=== PATIENT | female | born 1970 | race Caucasian/White ===

== ENCOUNTER 2020-06-19 08:06 | Outpatient (REF) | payer BC, SELFPAY ==
[2020-06-19 10:39] LABS: MANUAL DIFF FLAG NO
[2020-06-19 10:48] LABS: Basophils Absolute Auto 0.1 X10*3/uL (0.0-0.2); Basophils Percent Auto 1.2 % (0-2); Eosinophils Absolute Auto 0.3 X10*3/uL (0.0-0.4); Eosinophils Percent Auto 3.5 % (0-4); Hematocrit 40.6 % (37-47); Hemoglobin 13.2 g/dl (12.0-16.0); Imm Gran Abs Auto 0.04 X10*3/uL (0.00-0.03); Imm Gran Pct Auto 0.4 % (0.0-0.4); Lymphocytes Absolute Auto 3.2 X10*3/uL (1.2-4.9); Lymphocytes Percent Auto 34.7 % (20-40); Mean Corpuscular HGB Conc 32.5 g/dl (31.0-35.0); Mean Corpuscular Hemoglobin 30.6 pg (27.0-33.0); Mean Corpuscular Volume 94.2 fL (80-98); Mean Platelet Volume 9.5 fL (9.4-12.3); Monocytes Absolute Auto 0.7 X10*3/uL (0.1-1.2); Monocytes Percent Auto 7.8 % (2-11); Neutrophils Absolute Auto 4.8 X10*3/uL (2.0-8.3); Neutrophils Percent Auto 52.4 % (45-73); Platelet Count 383 X10*3/uL (160-400); Red Blood Count 4.31 X10*6/uL (4.20-5.50); White Blood Count 9.2 X10*3/uL (4.8-10.8)
[2020-06-19 11:10] LABS: Alanine Aminotransferase 24 U/L (0-31); Albumin Level 4.6 g/dL (3.5-5.0); Alkaline Phosphatase 111 U/L (39-117); Anion Gap 15 (12-20); Aspartate Amino Transferase 19 U/L (5-31); Bilirubin Total 0.5 mg/dL (0.0-1.0); Blood Urea Nitrogen 19 mg/dL (9-16); Calcium 9.3 mg/dL (8.4-10.2); Carbon Dioxide 26 mmol/L (22-29); Chloride 105 mmol/L (96-108); Cholesterol 183 mg/dL; Estimated Glomerular Filt Rate > 60; Glucose Fasting 102 mg/dL (60-99); HDL Cholesterol 41 mg/dL; LDL Cholesterol Calculated 122 mg/dl; Potassium 4.3 mmol/l (3.3-5.1); Sodium 142 mmol/L (135-145); Total Protein 6.9 g/dL (6.5-8.0); Triglycerides 102 mg/dL
[2020-06-19 11:35] LABS: TSH reflex Free T4 0.89 mIU/mL (0.32-4.0); Vitamin D 25-OH Total 31.2 ng/mL (>30)
== END 2020-06-19 08:07 | disposition home or self-care (01) ==
LOC: HO.10HDL 08:06
PROVIDERS: Visit Provider Internal Medicine
DX: E78.00 Pure hypercholesterolemia, unspecified (principal); R73.01 Impaired fasting glucose; M51.36 Other intervertebral disc degeneration, lumbar region; R00.2 Palpitations; K21.9 Gastro-esophageal reflux disease without esophagitis; E55.9 Vitamin D deficiency, unspecified
CPT/HCPCS: 36415; 80053; 80061; 82306; 84443; 85025

== ENCOUNTER 2020-10-19 17:30 | Inpatient (IN) | payer BC, SELFPAY ==
--- NOTE | ~2020-10-19 | US_ITS ---
EXAMINATION: US ABDOMEN LIMITED CLINICAL INFORMATION: Right upper quadrant pain. COMPARISON: 06/23/2011 TECHNIQUE: Real-time imaging of the right upper quadrant abdominal viscera. FINDINGS: PANCREAS: Normal. LIVER: Normal. The liver is normal in size. The liver contour is normal. Parenchymal echogenicity is normal. No focal hepatic lesion. There is no intrahepatic biliary duct dilatation seen. GALLBLADDER: There is cholelithiasis, gallbladder wall thickening and pericholecystic fluid. Sonographic Rivera sign is positive. COMMON BILE DUCT: Normal in caliber measuring 0.8 cm in diameter. RIGHT KIDNEY: Normal. No hydronephrosis. No renal calculi or focal parenchymal lesions. The kidney measures 10.2 cm in maximum dimension. FREE FLUID: None. US/US abdomen limited IMPRESSION: Sonographic findings suggest acute calculus cholecystitis
[2020-10-19 18:02] VITALS: BP 140/79; PULSE 101; RESP 16; TEMP 37.4; O2SAT 98; BMI 25.2
[2020-10-19 18:30] LABS: MANUAL DIFF FLAG NO
[2020-10-19 18:33] LABS: Basophils Absolute Auto 0.1 X10*3/uL (0.0-0.2); Basophils Percent Auto 0.7 % (0-2); Eosinophils Absolute Auto 0.1 X10*3/uL (0.0-0.4); Eosinophils Percent Auto 0.3 % (0-4); Hematocrit 41.2 % (37-47); Hemoglobin 13.5 g/dl (12.0-16.0); Imm Gran Abs Auto 0.09 X10*3/uL (0.00-0.03); Imm Gran Pct Auto 0.6 % (0.0-0.4); Lymphocytes Absolute Auto 2.5 X10*3/uL (1.2-4.9); Lymphocytes Percent Auto 16.7 % (20-40); Mean Corpuscular HGB Conc 32.8 g/dl (31.0-35.0); Mean Corpuscular Hemoglobin 30.2 pg (27.0-33.0); Mean Corpuscular Volume 92.2 fL (80-98); Mean Platelet Volume 9.1 fL (9.4-12.3); Monocytes Absolute Auto 0.8 X10*3/uL (0.1-1.2); Monocytes Percent Auto 5.5 % (2-11); Neutrophils Absolute Auto 11.5 X10*3/uL (2.0-8.3); Neutrophils Percent Auto 76.2 % (45-73); Platelet Count 374 X10*3/uL (160-400); Red Blood Count 4.47 X10*6/uL (4.20-5.50); Red Cell Distribution Width 13.6 % (11.0-16.0); White Blood Count 15.2 X10*3/uL (4.8-10.8)
[2020-10-19 18:34] LABS: Glucose Urine UA NEG (NEG); Leukocyte Esterase Urine NEG (NEG); Nitrite Urine NEG (NEG); Specific Gravity - Urine 1.025 (1.005-1.025); Urine Blood 2+ (NEG); Urine Ketones NEG (NEG); Urine Protein NEG (NEG-TRACE)
[2020-10-19 18:35] LABS: Appearance Urine CLEAR; Color Urine YELLOW
[2020-10-19 18:57] LABS: Alanine Aminotransferase 26 U/L (0-31); Albumin Level 4.7 g/dL (3.5-5.0); Alkaline Phosphatase 126 U/L (39-117); Anion Gap 15 (12-20); Aspartate Amino Transferase 19 U/L (5-31); Bilirubin Direct 0.2 mg/dL (0.0-0.5); Bilirubin Total 0.4 mg/dL (0.0-1.0); Blood Urea Nitrogen 16 mg/dL (9-16); Calcium 9.8 mg/dL (8.4-10.2); Carbon Dioxide 27 mmol/L (22-29); Chloride 104 mmol/L (96-108); Creatinine Clr Calc Pharmacy 62.9; Estimated Glomerular Filt Rate > 60; Glucose Random 122 mg/dL (60-115); Potassium 4.3 mmol/L (3.3-5.1); Sodium 142 mmol/L (135-145); Total Protein 7.4 g/dL (6.5-8.0)
[2020-10-19 18:59] LABS: Bacteria Urine TRACE /LPF; Squamous Epithelial Cell Urine TRACE /LPF; WBC Urine 0-2 /HPF (0-4)
[2020-10-19 20:00] VITALS: BP 144/94; PULSE 89; RESP 14; O2SAT 99
--- NOTE | 2020-10-19 21:21 | ED_ITS ---
HPI - Abdominal Pain General Chief Complaint: Abdominal Pain Stated Complaint: FLANK PAIN Time Seen by Provider: 10/19/20 21:13 Source: patient Mode of arrival: ambulatory History of Present Illness HPI narrative: This is a 49-year-old female who presents with right upper quadrant pain this started approximately 9:00 a.m. this morning denies any radiation into the right shoulder into her back but is also having pain in the epigastric area. This is been associated with nausea and 2 episodes of vomiting as well as decrease in appetite. Otherwise, she denies any fever, chills, diarrhea, urinary pain/burning/frequency. Her history is significant for having a ?gallbladder attack a few years ago?. Related Data Home Medications Medication Instructions Recorded Confirmed ibuprofen 800 mg tablet 800 mg PO TID PRN 06/22/20 06/23/20 sulfamethoxazole 800 1 tab PO BID 06/22/20 06/23/20 mg-trimethoprim 160 mg tablet cholecalciferol (vitamin D3) 50 50 mcg PO DAILY 06/23/20 06/23/20 mcg (2,000 unit) capsule fluticasone propionate 50 2 spray INTRANASAL DAILY 06/23/20 06/23/20 mcg/actuation nasal spray,suspension gabapentin 600 mg tablet 600 mg PO BID 06/23/20 06/23/20 paroxetine HCl 30 mg tablet 30 mg PO DAILY 06/23/20 06/23/20 propranolol 10 mg tablet 10 mg PO BID 06/23/20 06/23/20 tizanidine 4 mg tablet 4 mg PO TID PRN 06/23/20 06/23/20 Previous Rx's Medication Instructions Recorded atorvastatin 10 mg tablet 10 mg PO DAILY #30 tab 07/21/20 lorazepam 0.5 mg tablet 0.5 mg PO TID PRN 30 Days #90 tab 08/03/20 Allergies Allergy/AdvReac Type Severity Reaction Status Date / Time No Known Allergies Allergy Verified 06/23/20 22:24 [No Known Allergies*] Review of Systems Review of Systems Pertinent positives and negatives as stated in HPI 10 point review of systems is otherwise negative. Physical Exam Vital Signs: Vital Signs: Last Vital Signs Temp 98.3 F 10/19/20 22:00 Pulse 90 10/19/20 22:00 Resp 19 10/19/20 22:00 BP 133/90 H 10/19/20 22:00 Pulse Ox 99 10/19/20 22:00 Body Mass Index 25.2 VITAL SIGNS: Reviewed. GENERAL: Well developed, well nourished, in no acute distress. HEAD: Normocephalic/atraumatic NOSE: Nares patent bilateral OROPHARYNX: no oral lesions noted, posterior pharynx clear NECK: Supple, no adenopathy LUNGS: Normal breath sounds. SpO2<99> CARDIOVASCULAR: Regular rate and rhythm without noted murmurs ABDOMEN: Soft, tenderness in right upper quadrant with positive Rivera's, non- distended with bowel sounds. NEUROLOGIC: Alert and oriented x 4. Course Course Course Narrative: This is a 49-year-old female with history and clinical presentation most consistent with cholecystitis and less likely renal colic or pyelonephritis. Review of all investigations is significant for cholecystitis. Lactic acid and blood cultures were drawn and patient was provided with antibiotics and case was discussed with surgery. MDM - Abdominal Pain Lab Data Result diagrams: 10/19/20 18:23 10/19/20 18:23 Labs: Lab Results 10/19/20 10/19/20 10/19/20 Range/Units 18:23 18:23 18:23 WBC 15.2 H (4.8-10.8) X10*3/uL RBC 4.47 (4.20-5.50) X10*6/uL Hgb 13.5 (12.0-16.0) g/dl Hct 41.2 (37-47) % MCV 92.2 (80-98) fL MCH 30.2 (27.0-33.0) pg MCHC 32.8 (31.0-35.0) g/dl RDW 13.6 (11.0-16.0) % Plt Count 374 (160-400) X10*3/uL MPV 9.1 L (9.4-12.3) fL Immature Gran % (Auto) 0.6 H (0.0-0.4) % Neut % (Auto) 76.2 H (45-73) % Lymph % (Auto) 16.7 L (20-40) % [place] % (Auto) 5.5 (2-11) % Eos % (Auto) 0.3 (0-4) % Baso % (Auto) 0.7 (0-2) % Lymph # (Auto) 2.5 (1.2-4.9) X10*3/uL [place] # (Auto) 0.8 (0.1-1.2) X10*3/uL Eos # (Auto) 0.1 (0.0-0.4) X10*3/uL Baso # (Auto) 0.1 (0.0-0.2) X10*3/uL Abs Immat Gran (auto) 0.09 H (0.00-0.03) X10*3/uL Absolute Neuts (auto) 11.5 H (2.0-8.3) X10*3/uL Absolute Nucleated RBC 0.000 (0.0-0.012) X10*3/uL Nucleated RBC % (auto) 0.0 (0.0-0.2) /100WBC Sodium 142 (135-145) mmol/L Potassium 4.3 (3.3-5.1) mmol/L Chloride 104 (96-108) mmol/L Carbon Dioxide 27 (22-29) mmol/L Anion Gap 15 (12-20) BUN 16 (9-16) mg/dL Creatinine 0.92 (0.5-1.4) mg/dL Estim Creat Clear Calc 62.9 Estimated GFR > 60 Random Glucose 122 H (60-115) mg/dL Calcium 9.8 (8.4-10.2) mg/dL Total Bilirubin 0.4 (0.0-1.0) mg/dL Direct Bilirubin 0.2 (0.0-0.5) mg/dL AST 19 (5-31) U/L ALT 26 (0-31) U/L Alkaline Phosphatase 126 H (39-117) U/L Total Protein 7.4 (6.5-8.0) g/dL Albumin 4.7 (3.5-5.0) g/dL Lipase 32 (8-78) U/L Urine Color YELLOW Urine Appearance CLEAR Urine pH 6.0 (5.0-8.0) Ur Specific [place] 1.025 (1.005-1.025) Urine Protein NEG (NEG-TRACE) MG/DL Urine Glucose (UA) NEG (NEG) MG/DL Urine Ketones NEG (NEG) MG/DL Urine Blood 2+ H (NEG) Urine Nitrite NEG (NEG) Ur Leukocyte Esterase NEG (NEG) Urine RBC 1-4 (0) /HPF Urine WBC 0-2 (0-4) /HPF Ur Squamous Epith Cells TRACE /LPF Urine Bacteria TRACE /LPF Discharge Plan Discharge Clinical Impression: Acute cholecystitis Patient Disposition: Admitted As Inpatient [facility] Past Medical History Source: nursing notes reviewed Medical History Anxiety Depression GERD without esophagitis Impaired fasting glucose Lumbar degenerative disc disease Migraine Mild obstructive sleep apnea Palpitations Periodic limb movement disorder Pure hypercholesterolemia Vitamin D deficiency Surgical History No pertinent past surgical history Family History Family History Father Cancer Mother CVD (cardiovascular disease) Social History Social History Smoking Status: Former smoker Advance Directives: No Advance Directives Information Provided: Yes
[2020-10-19 22:00] VITALS: BP 133/90; PULSE 90; RESP 19; TEMP 36.8; O2SAT 99
[2020-10-19 22:01] LABS: Lipase 32 U/L (8-78)
[2020-10-19] MEDS: Ketorolac Tromethamine 15 MG/ML VIAL IVPUSH (22:08)
[2020-10-19] MEDS: 0.9 % Sodium Chloride 1,000 ML 999 ML IV (22:08)
[2020-10-19] MEDS: Piperacillin Sodium/Tazobactam 3.375 GM in 0.9 % Sodium Chloride 50 ML IV (22:22)
--- NOTE | 2020-10-19 22:28 | PC.NURSE ---
This RN placed an IV in the patients right AC, both blood cultures and lactic drawn, fluids and antibiotic hanging.
[2020-10-19 22:31] LABS: Lactic Acid 1.6 mmol/L (0.5-2.0)
--- NOTE | 2020-10-19 22:34 | P.CONGS_ITS ---
History of Present Illness Consult details Consult date: 10/19/20 <NELSON Joyce - Last Filed: 10/20/20 02:29> Reason for consult: abdominal pain <NELSON Joyce Last Filed: 10/20/20 02:29> Requesting physician: Amber Gonzalez <NELSON Joyce - Last Filed: 10/20/20 02:29> Narrative: 49 yo female presents to the ED today for Right side ABD pain and mid ABD burning sensation that started around 4 this AM. She states in 2010 she had a previous gallbladder attack that was treated with ABX. She has had no recurrence of those symptoms until this AM. She also reports episodes of N/V and a decreased appetite. She states that the pain comes and goes but denies radiation to the back or shoulder. At its worse it was a 9/10. Following pain medication in the ED it is now a 4/10. She denies fevers, chills or other complaints at this time. U/S in ED showed evidence of acute cholecystitis and labs with a WBC of 15K. Surgery was consulted for further evaluation <NELSON Joyce - Last Filed: 10/20/20 02:29> Review of Systems Review of Systems: Yes all other systems are reviewed and are negative <NELSON Joyce Last Filed: 10/20/20 02:29> Gastrointestinal: Gastrointestinal: Reports abdominal pain, Reports nausea and Reports vomiting <NELSON Joyce Last Filed: 10/20/20 02:29> [facility], [facility] Past Medical History Medical History: Medical History Anxiety Depression GERD without esophagitis Impaired fasting glucose Lumbar degenerative disc disease Migraine Mild obstructive sleep apnea Palpitations Periodic limb movement disorder Pure hypercholesterolemia Vitamin D deficiency <NELSON Joyce Last Filed: 10/20/20 02:29> Family History Family History: Family History Father Cancer Mother CVD (cardiovascular disease) <NELSON Joyce Last Filed: 10/20/20 02:29> Surgical History Surgical History: Surgical History No pertinent past surgical history <NELSON Joyce Last Filed: 10/20/20 02:29> Social History Social History: Social History Household Members: Family Housing: House Do you presently have visiting nurse or other home services: No Smoking Status: Current every day smoker Packs Per Day: 0.5 Cigarettes Per Day: 10.0 Years Smoked: 15 Smoked in Last 30 Days: Yes Patient Interested in Nicotine Replacement: No Use of substances other than those prescribed or required for medical reasons: No Have you been hit, kicked, punched, or otherwise hurt by someone within the past year? If so, by whom?: No Do you feel safe in your current relationship?: Yes Is there a partner from a previous relationship who is making you feel unsafe now?: No Are you made to feel afraid or neglected: No Advance Directives: No Advance Directives Information Provided: Yes Do you have thoughts of harming others: None Do you have a plan to hurt others: No Plan Recently lost weight without trying: No <NELSON Joyce - Last Filed: 10/20/20 02:29> Meds Allergies/Adverse reactions: Allergies Allergy/AdvReac Type Severity Reaction Status Date / Time No Known Allergies Allergy Verified 06/23/20 22:24 [No Known Allergies*] <NELSON Joyec - Last Filed: 10/20/20 02:29> Active Medications: Current Medications Generic Name Dose Route Start Last Admin Trade Name Freq PRN Reason Stop Dose Admin Piperacillin Sod/Tazobactam 50 mls @ 100 mls/hr 10/19/20 22:14 10/19/20 22:22 Sod 3.375 gm/ Sodium Chloride IV 10/19/20 22:43 100 mls/hr ONCE ONE Administration <NELSON Joyce - Last Filed: 10/20/20 02:29> Home medications: Home Medications Medication Instructions Recorded Confirmed Last Taken Type ibuprofen 800 mg tablet 800 mg PO TID PRN 06/22/20 06/23/20 Unknown History sulfamethoxazole 800 1 tab PO BID 06/22/20 06/23/20 Unknown History mg-trimethoprim 160 mg tablet cholecalciferol (vitamin D3) 50 50 mcg PO DAILY 12/12/20 12/12/20 Unknown History mcg (2,000 unit) capsule fluticasone propionate 50 2 spray INTRANASAL DAILY 06/23/20 06/23/20 Unknown History mcg/actuation nasal spray,suspension gabapentin 600 mg tablet 600 mg PO BID 06/23/20 06/23/20 Unknown History paroxetine HCl 30 mg tablet 30 mg PO DAILY 06/23/20 06/23/20 Unknown History propranolol 10 mg tablet 10 mg PO BID 06/23/20 06/23/20 Unknown History tizanidine 4 mg tablet 4 mg PO TID PRN 06/23/20 06/23/20 Unknown History <NELSON Joyce Last Filed: 10/20/20 02:29> Physical Exam Vital Signs: Vital Signs: Last Vital Signs Temp 98.3 F 10/19/20 22:00 Pulse 90 10/19/20 22:00 Resp 19 10/19/20 22:00 BP 133/90 H 10/19/20 22:00 Pulse Ox 99 10/19/20 22:00 Body Mass Index 25.2 <NELSON Joyce Last Filed: 10/20/20 02:29> Const: General: cooperative and no acute distress <NELSON Joyce L ast Filed: 10/20/20 02:29> Eyes: General: appearance normal, both eyes and all related structures <NELSON Joyce Last Filed: 10/20/20 02:29> Resp: Effort & Inspection: normal respiratory effort <NELSON Joyce Last Filed: 10/20/20 02:29> Auscultation: clear to auscultation bilaterally <NELSON Joyce Last Filed: 10/20/20 02:29> Cardio: Rate: regular rate <NELSON Joyce Last Filed: 10/20/20 02:29> Heart sounds: S1 normal heart sound present and S2 normal heart sound present <NELSON Joyce Last Filed: 10/20/20 02:29> GI: Inspection: Yes normal to inspection <NELSON Joyce Last Filed: 10/20/20 02:29> Palpation (GI): Soft to palpation and Tenderness to palpation present (GI) in the RUQ <NELSON Joyce Last Filed: 10/20/20 02:29> Auscultation: normal bowel sounds <NELSON Joyce - Last Filed: 10/20/20 02:29> Skin: General skin exam: no rashes or lesions noted <NELSON Joyce - Last Filed: 10/20/20 02:29> Results Labs Result diagrams: : 10/19/20 18:23 10/19/20 18:23 <NELSNO Joyce - Last Filed: 10/20/20 02:29> Labs: Abnormal lab results 10/19/20 10/19/20 10/19/20 Range/Units 18:23 18:23 18:23 WBC 15.2 H (4.8-10.8) X10*3/uL MPV 9.1 L (9.4-12.3) fL Immature Gran % (Auto) 0.6 H (0.0-0.4) % Neut % (Auto) 76.2 H (45-73) % Lymph % (Auto) 16.7 L (20-40) % Abs Immat Gran (auto) 0.09 H (0.00-0.03) X10*3/uL Absolute Neuts (auto) 11.5 H (2.0-8.3) X10*3/uL Random Glucose 122 H (60-115) mg/dL Alkaline Phosphatase 126 H (39-117) U/L Urine Blood 2+ H (NEG) Short CBC 10/19/20 Range/Units 18:23 WBC 15.2 H (4.8-10.8) X10*3/uL Hgb 13.5 (12.0-16.0) g/dl Hct 41.2 (37-47) % Plt Count 374 (160-400) X10*3/uL BMP 10/19/20 18:23 Sodium 142 Potassium 4.3 Chloride 104 Carbon Dioxide 27 BUN 16 Creatinine 0.92 Calcium 9.8 Liver Function 10/19/20 Range/Units 18:23 Total Bilirubin 0.4 (0.0-1.0) mg/dL Direct Bilirubin 0.2 (0.0-0.5) mg/dL AST 19 (5-31) U/L ALT 26 (0-31) U/L Alkaline Phosphatase 126 H (39-117) U/L Albumin 4.7 (3.5-5.0) g/dL Urine 10/19/20 Range/Units 18:23 Urine Color YELLOW Urine Appearance CLEAR Urine pH 6.0 (5.0-8.0) Ur Specific [place] 1.025 (1.005-1.025) Urine Protein NEG (NEG-TRACE) MG/DL Urine Glucose (UA) NEG (NEG) MG/DL All other labs normal. <NELSON Joyce - Last Filed: 10/20/20 02:29> Assessment and Plan (1) Acute cholecystitis: Problem details: 49 yo female with RUQ and Epigastric pain. U/S evidence of acute ch olecystitis. WBC of 15k <NELSON Joyce - Last Filed: 10/20/20 02:29> Status: Acute <NELSON Joyce - Last Filed: 10/20/20 02:29> Admit to med surg NPO pain mgmt IVF Plan for CCY tomorrow. <NELSON Joyce - Last Filed: 10/20/20 02:29> . General Surgery Attending - Suzanne Baires M.D. Patient was evaluated and examined at the bedside with Mr. Tristan Suero PA-C. I confirm above findings and plan as documented. I reviewed the U/S findings and her history. Will tx with IV antibiotics and assess her clinical course and determine timing of surgery. <Stefanie Baires MD - Last Filed: 10/20/20 02:50>
[2020-10-19 22:39] LABS: COVID-19 Test Negative (Negative)
[2020-10-19 22:49] VITALS: BP 122/73; PULSE 66; RESP 14; TEMP 36.9; O2SAT 100
[2020-10-19] MEDS: 0.9 % Sodium Chloride Flush 3 ML SYRINGE IVFLUSH (23:02)
[2020-10-19] MEDS: Morphine Sulfate 4 MG/ML CARTRIDGE IVPUSH (23:02)
[2020-10-19] MEDS: 0.9 % Sodium Chloride 1,000 ML 100 ML IVCONT (23:03)
[2020-10-20 00:22] LABS: Glucose Urine UA NEG (NEG); Leukocyte Esterase Urine NEG (NEG); Nitrite Urine NEG (NEG); Urine Blood 2+ (NEG); Urine Ketones NEG (NEG); Urine Protein NEG (NEG-TRACE)
[2020-10-20 00:25] LABS: Appearance Urine CLEAR; Color Urine YELLOW
[2020-10-20 00:38] LABS: RBC Urine 0-2 /HPF (0); Squamous Epithelial Cell Urine TRACE /LPF; WBC Urine 0-2 /HPF (0-4)
[2020-10-20 01:15] LABS: INTERNATIONAL NORM RATIO 1.1 (0.9-1.1); Prothrombin Time 12.6 SEC (10.8-13.0)
--- NOTE | 2020-10-20 01:52 | PC.NURSE ---
Report called to Johnathon RN- patient informed of admission report and room number. Patients belongings gone through and belongings list made. Pt to be transferred to floor.
[2020-10-20 02:16] VITALS: BP 113/50; PULSE 91; RESP 16; TEMP 37.7; O2SAT 97
[2020-10-20 03:46] VITALS: BP 128/71; PULSE 82; RESP 16; TEMP 37.2; O2SAT 97
[2020-10-20] MEDS: vancomycin HCL 1,000 MG in 0.9 % Sodium Chloride 250 ML 270 MG IV (04:30)
[2020-10-20] MEDS: Piperacillin Sodium/Tazobactam 3.375 GM in 0.9 % Sodium Chloride 50 ML IV ×4 (06:01→23:38)
[2020-10-20 07:11] LABS: Basophils Absolute Auto 0.1 X10*3/uL (0.0-0.2); Basophils Percent Auto 0.7 % (0-2); Eosinophils Absolute Auto 0.2 X10*3/uL (0.0-0.4); Eosinophils Percent Auto 1.6 % (0-4); Hematocrit 35.2 % (37-47); Hemoglobin 11.4 g/dl (12.0-16.0); Imm Gran Abs Auto 0.05 X10*3/uL (0.00-0.03); Imm Gran Pct Auto 0.4 % (0.0-0.4); Lymphocytes Absolute Auto 4.4 X10*3/uL (1.2-4.9); Lymphocytes Percent Auto 37.8 % (20-40); MANUAL DIFF FLAG NO; Mean Corpuscular HGB Conc 32.4 g/dl (31.0-35.0); Mean Corpuscular Hemoglobin 29.9 pg (27.0-33.0); Mean Corpuscular Volume 92.4 fL (80-98); Mean Platelet Volume 9.1 fL (9.4-12.3); Monocytes Absolute Auto 0.8 X10*3/uL (0.1-1.2); Monocytes Percent Auto 7.2 % (2-11); Neutrophils Percent Auto 52.3 % (45-73); Platelet Count 312 X10*3/uL (160-400); Red Blood Count 3.81 X10*6/uL (4.20-5.50); Red Cell Distribution Width 13.8 % (11.0-16.0); White Blood Count 11.5 X10*3/uL (4.8-10.8)
[2020-10-20 07:59] VITALS: BP 131/77; PULSE 100; RESP 19; TEMP 37; O2SAT 95
[2020-10-20] MEDS: 0.9 % Sodium Chloride 1,000 ML 100 ML IVCONT ×2 (10:23→21:54)
--- NOTE | 2020-10-20 10:37 | PM.PNGS ---
Subjective Subjective Date of Service: 10/20/20 <NELSON Joyce - Last Filed: 10/20/20 13:40> 10/20/20 <Stefanie Baires MD - Last Filed: 10/20/20 15:08> Interval history: Doing well. No overnight events. She states she has less pain and has not required any pain medication. No new compaints. <NELSON Joyce - Last Filed: 10/20/20 13:40> Physical Exam Vital Signs: Vital Signs: Last Vital Signs Temp 98.6 F 10/20/20 07:59 Pulse 100 10/20/20 07:59 Resp 19 10/20/20 07:59 BP 131/77 10/20/20 07:59 Pulse Ox 95 10/20/20 07:59 Body Mass Index 25.2 <NELSON Joyce - Last Filed: 10/20/20 13:40> Const: General: cooperative, healthy appearing and no acute distress <NELSON Joyce - Last Filed: 10/20/20 13:40> Resp: Effort & Inspection: normal respiratory effort and able to speak in complete sentences <NELSON Joyce - Last Filed: 10/20/20 13:40> Auscultation: clear to auscultation bilaterally <NELSON Joyce - Last Filed: 10/20/20 13:40> Cardio: Rate: regular rate <NELSON Joyce - Last Filed: 10/20/20 13:40> Heart sounds: S1 normal heart sound present and S2 normal heart sound present <NELSON Joyce - Last Filed: 10/20/20 13:40> GI: Inspection: Yes normal to inspection <NELSON Joyce - Last Filed: 10/20/20 13:40> Palpation (GI): Soft to palpation and Tenderness to palpation present (GI) in the RUQ (mild with palpation) <NELSON Joyce - Last Filed: 10/20/20 13:40> Auscultation: normal bowel sounds <NELSON Joyce - Last Filed: 10/20/20 13:40> Skin: General skin exam: no rashes or lesions noted <NELSON Joyce - Last Filed: 10/20/20 13:40> Extrem: General: Yes no calf tenderness <NELSON Joyce - Last Filed: 10/20/20 13:40> Progress Note: A&P Assessment and plan (1) Acute cholecystitis: Problem details: 49 yo female with RUQ and Epigastric pain. U/S evidence of acute cholecystitis. WBC improving from 15K--> 11k. No new compaints <NELSON Joyce - Last Filed: 10/20/20 13:40> Status: Acute <NELSON Joyce - Last Filed: 10/20/20 13:40> Assessment and Plan: Continue IV ABX. IVF Pain mgmt Vanco trough draw early so falsely elevated. Will hold off on emergent surgery at this time as she is improving with conservative mgmt. Encourage OOB <NELSON Joyce - Last Filed: 10/20/20 13:40> . General Surgery Attending - Suzanne Baires M.D. Patient was evaluated and examined at the bedside with Mr. Tristan Suero PA-C. I confirm above findings and plan as documented. Patient is stable, feeling better. Will recommend surgery this coming week. <Stefanie Baires MD - Last Filed: 10/20/20 15:08> Fall Risk Details Current Medications: Current Medications Generic Name Dose Route Start Last Admin Trade Name Freq PRN Reason Stop Dose Admin Acetaminophen 650 mg 10/19/20 22:49 Acetaminophen 325 Mg Tablet PO Q6H PRN Pain, Mild (Pain Scale 1-3) Sodium Chloride 1,000 mls @ 100 mls/hr 10/19/20 23:00 10/20/20 10:23 Ns IVCONT 100 mls/hr .Q10H JAIMEE Administration Vancomycin HCl 750 mg/ Sodium 265 mls @ 265 mls/hr 10/20/20 15:00 Chloride IV Q12H JAIMEE Piperacillin Sod/Tazobactam 50 mls @ 100 mls/hr 10/20/20 12:00 Sod 3.375 gm/ Sodium Chloride IV Q6H JAIMEE Morphine Sulfate 4 mg 10/19/20 22:49 10/19/20 23:02 Morphine Sulfate 4 Mg/Ml Cartridge IVPUSH 4 mg Q4H PRN Administration Pain, Severe (Pain Scale 7-10) Pharmacy Consult 1 each 10/20/20 03:09 Consult Rx Vancomycin Dosing MISCELLANE DAILY PRN Consult order Sodium Chloride 3 ml 10/20/20 00:00 10/20/20 08:12 0.9 % Sodium Chloride Flush 3 Ml Syringe IVFLUSH Not Given QSHIFT [facility] <NELSON Joyce - Last Filed: 10/20/20 13:40> Time Spent With Patient Time: Total time spent is greater than 50% in coordination of care (as documented) at patient's floor/unit and/or counseling patient: <NELSON Joyce - Last Filed: 10/20/20 13:40> Time with patient: 15 - 24 minutes <Stefanie Baires MD - Last Filed: 10/20/20 15:08>
[2020-10-20] MEDS: Acetaminophen 325 MG TABLET 650 MG PO (11:24)
[2020-10-20 11:39] VITALS: BP 125/65; PULSE 82; RESP 15; TEMP 36.7; O2SAT 97
[2020-10-20] MEDS: vancomycin HCL 750 MG in 0.9 % Sodium Chloride 250 ML 265 MG IV (14:48)
--- NOTE | 2020-10-20 15:06 | MHC.CM.PN ---
PATIENT LIVES WITH HER SPOUSE. SHE IS INDEPENDENT WITH HER ADLS, ALTHOUGH SPOUSE PROVIDES TRANSPORTATION. NO SERVICES IN THE HOME. SURGERY IS LIKELY TO OCCUR ON SUNDAY 10/22. CASE MANAGEMENT FOLLOWING FOR ANY DC NEEDS.
[2020-10-20 15:32] VITALS: BP 130/62; PULSE 80; RESP 15; TEMP 36.4; O2SAT 98
[2020-10-20 19:13] VITALS: BP 128/71; PULSE 78; RESP 15; TEMP 36.1; O2SAT 98
[2020-10-21] VITALS (7 sets, daily range): BP systolic 124–145; BP diastolic 60–83; PULSE 66–92; RESP 16–18; TEMP 36.3–37.7; O2SAT 96–99
[2020-10-21] MEDS: vancomycin HCL 750 MG in 0.9 % Sodium Chloride 250 ML 265 MG IV ×2 (02:54→16:06)
[2020-10-21] MEDS: Piperacillin Sodium/Tazobactam 3.375 GM in 0.9 % Sodium Chloride 50 ML IV ×3 (05:45→18:03)
[2020-10-21] MEDS: 0.9 % Sodium Chloride 1,000 ML 100 ML IVCONT ×2 (08:45→20:21)
--- NOTE | 2020-10-21 14:29 | PM.PNGS ---
Subjective Subjective Date of Service: 10/21/20 <NELSON Joyce - Last Filed: 10/21/20 14:35> 10/21/20 <Stefanie Baires MD - Last Filed: 10/21/20 14:56> Interval history: She is feeling well. Relatively little pain. She is OOB and was about to shower. She denies N/V. No new complaints. She is tolerating a regular (low fat)diet. <NELSON Joyce - Last Filed: 10/21/20 14:35> Physical Exam Vital Signs: Vital Signs: Last Vital Signs Temp 97.6 F 10/21/20 11:29 Pulse 66 10/21/20 11:29 Resp 16 10/21/20 11:29 BP 127/73 10/21/20 11:29 Pulse Ox 97 10/21/20 11:29 Body Mass Index 25.2 <NELSON Joyce - Last Filed: 10/21/20 14:35> Const: General: healthy appearing, comfortable and no acute distress <NELSON Joyce - Last Filed: 10/21/20 14:35> Resp: Effort & Inspection: normal respiratory effort <NELSON Joyce - Last Filed: 10/21/20 14:35> Auscultation: clear to auscultation bilaterally <ENLSON Joyce - Last Filed: 10/21/20 14:35> Cardio: Rate: regular rate <NELSON Joyce - Last Filed: 10/21/20 14:35> Heart sounds: S1 normal heart sound present and S2 normal heart sound present <NELSON Joyce - Last Filed: 10/21/20 14:35> GI: Inspection: Yes normal to inspection <NELSON Joyce - Last Filed: 10/21/20 14:35> Palpation (GI): Soft to palpation <NELSON Joyce Last Filed: 10/21/20 14:35> Auscultation: normal bowel sounds <NELSON Joyce - Last Filed: 10/21/20 14:35> Skin: General skin exam: no rashes or lesions noted <NELSON Joyce Last Filed: 10/21/20 14:35> Extrem: General: Yes no calf tenderness <NELSON Joyce - Last Filed: 10/21/20 14:35> Progress Note: A&P Assessment and plan (1) Acute cholecystitis: Problem details: 49 yo female with RUQ and Epigastric pain. U/S evidence of acute cholecystitis. Doing well on ABX. No new complaints <NELSON Joyce - Last Filed: 10/21/20 14:35> Status: Acute <NELSON Joyce - Last Filed: 10/21/20 14:35> Assessment and Plan: Will plan for a scheduled CCY in the coming week Continue IV ABX, pain meds as needed Will make NPO at midnight <NELSON Joyce - Last Filed: 10/21/20 14:35> . General Surgery Attending - Suzanne Baires M.D. Patient was evaluated and examined at the bedside with Mr. Tristan Suero PA-C. I confirm above findings and plan as documented. I have advised that she will undergo cholecystectomy this upcoming week. I did NOT suggest the timing/date of the surgery, which will depend on the attending surgeon's schedule who will take over her case on Thursday. <Stefanie Baires MD - Last Filed: 10/21/20 14:56> Fall Risk Details Current Medications: Current Medications Generic Name Dose Route Start Last Admin Trade Name Freq PRN Reason Stop Dose Admin Acetaminophen 650 mg 10/19/20 22:49 10/20/20 11:24 Acetaminophen 325 Mg Tablet PO 650 mg Q6H PRN Administration Pain, Mild (Pain Scale 1-3) Sodium Chloride 1,000 mls @ 100 mls/hr 10/19/20 23:00 10/21/20 14:17 Ns IVCONT Not Given .Q10H JAIMEE Vancomycin HCl 750 mg/ Sodium 265 mls @ 265 mls/hr 10/20/20 15:00 10/21/20 04:55 Chloride IV Infused Q12H JAIMEE Infusion Piperacillin Sod/Tazobactam 50 mls @ 100 mls/hr 10/20/20 12:00 10/21/20 12:36 Sod 3.375 gm/ Sodium Chloride IV Infused Q6H JAIMEE Infusion Morphine Sulfate 4 mg 10/19/20 22:49 10/19/20 23:02 Morphine Sulfate 4 Mg/Ml Cartridge IVPUSH 4 mg Q4H PRN Administration Pain, Severe (Pain Scale 7-10) Pharmacy Consult 1 each 10/20/20 03:09 Consult Rx Vancomycin Dosing MISCELLANE DAILY PRN Consult order Sodium Chloride 3 ml 10/20/20 00:00 10/21/20 08:46 0.9 % Sodium Chloride Flush 3 Ml Syringe IVFLUSH Not Given QSHIFT JAIMEE <NELSON Joyce - Last Filed: 10/21/20 14:35> Time Spent With Patient Time: Total time spent is greater than 50% in coordination of care (as documented) at patient's floor/unit and/or counseling patient: <NELSON Joyce - Last Filed: 10/21/20 14:35> Time with patient: less than 15 minutes <Stefanie Baires MD - Last Filed: 10/21/20 14:56>
[2020-10-21 15:14] LABS: Vancomycin Trough 11.4 mcg/mL (10.0-20.0)
[2020-10-22] VITALS (12 sets, daily range): BP systolic 132–166; BP diastolic 67–85; PULSE 67–104; RESP 16–20; TEMP 36.3–37.4; O2SAT 93–100
[2020-10-22] MEDS: Piperacillin Sodium/Tazobactam 3.375 GM in 0.9 % Sodium Chloride 50 ML IV ×3 (00:14→19:26)
[2020-10-22] MEDS: vancomycin HCL 750 MG in 0.9 % Sodium Chloride 250 ML 265 MG IV (02:56)
[2020-10-22] MEDS: 0.9 % Sodium Chloride 1,000 ML 100 ML IVCONT ×2 (07:43→16:25)
--- NOTE | 2020-10-22 08:23 | PM.PNGS ---
Subjective Subjective Date of Service: 10/22/20 Interval history: 49-year-old female with her 2nd episode of acute cholecystitis admitted over the weekend by Dr. Baires. She has improved this morning but does have some diarrhea. Physical Exam Vital Signs: Vital Signs: Last Vital Signs Temp 97.3 F 10/22/20 07:25 Pulse 76 10/22/20 07:25 Resp 18 10/22/20 07:25 BP 145/68 H 10/22/20 07:25 Pulse Ox 97 10/22/20 07:25 Body Mass Index 25.2 Const: General: cooperative, healthy appearing, comfortable, no acute distress, well developed, alert, awake and Physically active Orientation/consciousness: patient oriented x3 Limitations: no limitations Eyes: Sclerae: sclerae normal EOM: EOMs intact bilaterally Resp: Effort & Inspection: normal respiratory effort Cardio: Jugular venous distension: no JVD Rate: regular rate Rhythm: regular rhythm GI: Other: Soft, tender in the right upper quadrant, no rebound, no guarding, positive Rivera sign Auscultation: normal bowel sounds Skin: Other: No jaundice General skin exam: no rashes or lesions noted Neuro: General: patient oriented x3 Extrem: General: Yes no clubbing, cyanosis or edema Progress Note: A&P Assessment and plan (1) Acute cholecystitis: Problem details: 49-year-old female with her 2nd episode of acute cholecystitis admitted over the weekend by Dr. Baires. She has improved this morning but does have some diarrhea. I recommended a laparoscopic or possible open cholecystectomy. After discussion of the procedure, risks, and alternatives, she consents to the surgery. She will be added onto the operative schedule for later today. Status: Acute Fall Risk Details Current Medications: Current Medications Generic Name Dose Route Start Last Admin Trade Name Freq PRN Reason Stop Dose Admin Acetaminophen 650 mg 10/19/20 22:49 10/20/20 11:24 Acetaminophen 325 Mg Tablet PO 650 mg Q6H PRN Administration Pain, Mild (Pain Scale 1-3) Sodium Chloride 1,000 mls @ 100 mls/hr 10/19/20 23:00 10/22/20 07:43 Ns IVCONT 100 mls/hr .Q10H JAIMEE Administration Vancomycin HCl 750 mg/ Sodium 265 mls @ 265 mls/hr 10/20/20 15:00 04/12/21 04:19 Chloride IV Infused Q12H JAIMEE Infusion Piperacillin Sod/Tazobactam 50 mls @ 100 mls/hr 10/20/20 12:00 10/22/20 06:23 Sod 3.375 gm/ Sodium Chloride IV 0 mls/hr Q6H JAIMEE Infusion Morphine Sulfate 4 mg 10/19/20 22:49 10/19/20 23:02 Morphine Sulfate 4 Mg/Ml Cartridge IVPUSH 4 mg Q4H PRN Administration Pain, Severe (Pain Scale 7-10) Pharmacy Consult 1 each 10/20/20 03:09 Consult Rx Vancomycin Dosing MISCELLANE DAILY PRN Consult order Sodium Chloride 3 ml 10/20/20 00:00 10/22/20 07:44 0.9 % Sodium Chloride Flush 3 Ml Syringe IVFLUSH Not Given QSHIFT JAIMEE Time Spent With Patient Time: Total time spent is greater than 50% in coordination of care (as documented) at patient's floor/unit and/or counseling patient: Time with patient: 15 - 24 minutes
--- NOTE | 2020-10-22 10:06 | MHC.SHP ---
Pre-Procedural Eval Section A The patient is an INPATIENT: Yes Section B Chief Complaint: ACUTE CHOLECYSTITIS Allergies: Allergies Allergy/AdvReac Type Severity Reaction Status Date / Time No Known Allergies Allergy Verified 06/23/20 22:24 [No Known Allergies*] Plan Diagnosis/Plan: Unchanged I have reviewed the history and physical and performed a pertinent physical examination on my patient. No changes have occurred unless specified.
--- NOTE | 2020-10-22 10:35 | MHC.CM.PN ---
NURSE WEIGHER PRODUCTION NOTE ELECTRONIC MEDICAL RECORD REVIEWED ALONG WITH CASE DISCUSSED WITH STAFF NURSE , MET WITH PATIENT SHE IS ANTICIPATING HAVING HER GALLBLADDER OUT TODAY AND HOPES TO BE POSSIBLY DISCHARGED HOME THIS EVENING OR TOMORROW MORNING . DISCHARGE PLAN HOME WITH , ANTICIPATING NO SERVICES WILL BE NEEED PCP PATIENT TO CALL FOR POST HOSPITAL DISCHARGE FOLLOW UP SURGICAL FOLLOW UP PER DISCHARGE INSTRUCTIONS TRANSPORTATION-FAMILY
--- NOTE | 2020-10-22 12:28 | P.CONAN_ITS ---
[facility] Active Problems Active Problems: All Active Problems (Updated 10/22/20 @ 08:27 by Conor quinn MD) Acute cholecystitis (Acute) Depression (Acute) Anxiety (Acute) Periodic limb movement disorder (Acute) Mild obstructive sleep apnea (Acute) GERD without esophagitis (Acute) Vitamin D deficiency (Acute) Palpitations (Acute) Impaired fasting glucose (Acute) Migraine (Acute) Lumbar degenerative disc disease (Acute) Pure hypercholesterolemia (Acute) Past Medical History Medical History Anxiety Depression GERD without esophagitis Impaired fasting glucose Lumbar degenerative disc disease Migraine Mild obstructive sleep apnea Palpitations Periodic limb movement disorder Pure hypercholesterolemia Vitamin D deficiency Family History Family History Father Cancer Mother CVD (cardiovascular disease) Surgical History Surgical History No pertinent past surgical history Social History Social History Household Members: Family Housing: House Do you presently have visiting nurse or other home services: No Smoking Status: Current every day smoker Packs Per Day: 0.5 Cigarettes Per Day: 10 Years Smoked: 15 Smoked in Last 30 Days: Yes Patient Interested in Nicotine Replacement: No Use of substances other than those prescribed or required for medical reasons: No Currently Displaying Signs/Symptoms of Drug Intoxication Withdrawal: No Have you been hit, kicked, punched, or otherwise hurt by someone within the past year? If so, by whom?: No Do you feel safe in your current relationship?: Yes Is there a partner from a previous relationship who is making you feel unsafe now?: No Are you made to feel afraid or neglected: No Advance Directives: No Advance Directives Information Provided: Yes Do you have thoughts of harming others: None Do you have a plan to hurt others: No Plan Recently lost weight without trying: No service: No Current occupational status: employed Meds Allergies Allergy/AdvReac Type Severity Reaction Status Date / Time No Known Allergies Allergy Verified 06/23/20 22:24 [No Known Allergies*] Active Medications: Current Medications Generic Name Dose Route Start Last Admin Trade Name Freq PRN Reason Stop Dose Admin Acetaminophen 650 mg 10/19/20 22:49 10/20/20 11:24 Acetaminophen 325 Mg Tablet PO 650 mg Q6H PRN Administration Pain, Mild (Pain Scale 1-3) Sodium Chloride 1,000 mls @ 100 mls/hr 10/19/20 23:00 10/22/20 07:43 Ns IVCONT 100 mls/hr .Q10H JAIMEE Administration Vancomycin HCl 750 mg/ Sodium 265 mls @ 265 mls/hr 10/20/20 15:00 10/22/20 04:19 Chloride IV Infused Q12H JAIMEE Infusion Piperacillin Sod/Tazobactam 50 mls @ 100 mls/hr 10/20/20 12:00 10/22/20 06:23 Sod 3.375 gm/ Sodium Chloride IV 0 mls/hr Q6H JAIMEE Infusion Morphine Sulfate 4 mg 10/19/20 22:49 10/19/20 23:02 Morphine Sulfate 4 Mg/Ml Cartridge IVPUSH 4 mg Q4H PRN Administration Pain, Severe (Pain Scale 7-10) Pharmacy Consult 1 each 10/20/20 03:09 Consult Rx Vancomycin Dosing MISCELLANE DAILY PRN Consult order Sodium Chloride 3 ml 10/20/20 00:00 10/22/20 07:44 0.9 % Sodium Chloride Flush 3 Ml Syringe IVFLUSH Not Given QSHIFT [facility] Home Medications Medication Instructions Recorded Confirmed Last Taken Type ibuprofen 800 mg tablet 800 mg PO TID PRN 06/22/20 06/23/20 Unknown History sulfamethoxazole 800 1 tab PO BID 06/22/20 06/23/20 Unknown History mg-trimethoprim 160 mg tablet cholecalciferol (vitamin D3) 50 50 mcg PO DAILY 06/23/20 06/23/20 Unknown History mcg (2,000 unit) capsule fluticasone propionate 50 2 spray INTRANASAL DAILY 06/23/20 06/23/20 Unknown History mcg/actuation nasal spray,suspension gabapentin 600 mg tablet 600 mg PO BID 06/23/20 06/23/20 Unknown History paroxetine HCl 30 mg tablet 30 mg PO DAILY 06/23/20 06/23/20 Unknown History propranolol 10 mg tablet 10 mg PO BID 06/23/20 06/23/20 Unknown History tizanidine 4 mg tablet 4 mg PO TID PRN 06/23/20 06/23/20 Unknown History Exam Exam Date and Time: October 22, 2020 1228 Height,Weight and Vital Signs: Height 5 ft 2 in Weight 62.596 kg Last Vital Signs Temp 99.4 F 10/22/20 11:35 Pulse 69 10/22/20 11:35 Resp 16 10/22/20 11:35 BP 158/78 H 10/22/20 11:35 Pulse Ox 98 10/22/20 11:35 Pertinent Lab Results Pertinent Lab Results: Laboratory Tests 10/19/20 10/19/20 10/19/20 18:23 18:23 18:23 WBC 15.2 H RBC 4.47 Hgb 13.5 Hct 41.2 MCV 92.2 MCH 30.2 MCHC 32.8 RDW 13.6 Plt Count 374 MPV 9.1 L Immature Gran % (Auto) 0.6 H Neut % (Auto) 76.2 H Lymph % (Auto) 16.7 L [place] % (Auto) 5.5 Eos % (Auto) 0.3 Baso % (Auto) 0.7 Lymph # (Auto) 2.5 [place] # (Auto) 0.8 Eos # (Auto) 0.1 Baso # (Auto) 0.1 Abs Immat Gran (auto) 0.09 H Absolute Neuts (auto) 11.5 H Absolute Nucleated RBC 0.000 Nucleated RBC % (auto) 0.0 PT INR Sodium 142 Potassium 4.3 Chloride 104 Carbon Dioxide 27 Anion Gap 15 BUN 16 Creatinine 0.92 Estim Creat Clear Calc 62.9 Estimated GFR > 60 Random Glucose 122 H Lactic Acid Calcium 9.8 Total Bilirubin 0.4 Direct Bilirubin 0.2 AST 19 ALT 26 Alkaline Phosphatase 126 H Total Protein 7.4 Albumin 4.7 Lipase 32 Urine Color YELLOW Urine Appearance CLEAR Urine pH 6.0 Ur Specific Roe 1.025 Urine Protein NEG Urine Glucose (UA) NEG Urine Ketones NEG Urine Blood 2+ H Urine Nitrite NEG Ur Leukocyte Esterase NEG Urine RBC 1-4 Urine WBC 0-2 Ur Squamous Epith Cells TRACE Urine Bacteria TRACE Vancomycin Trough COVID-19 ([facility]OMAS) COVID-19 Clin Com 10/19/20 10/19/20 10/19/20 22:05 22:20 23:55 WBC RBC Hgb Hct MCV MCH MCHC RDW Plt Count MPV Immature Gran % (Auto) Neut % (Auto) Lymph % (Auto) [place] % (Auto) Eos % (Auto) Baso % (Auto) Lymph # (Auto) [place] # (Auto) Eos # (Auto) Baso # (Auto) Abs Immat Gran (auto) Absolute Neuts (auto) Absolute Nucleated RBC Nucleated RBC % (auto) PT INR Sodium Potassium Chloride Carbon Dioxide Anion Gap BUN Creatinine Estim Creat Clear Calc Estimated GFR Random Glucose Lactic Acid 1.6 Calcium Total Bilirubin Direct Bilirubin AST ALT Alkaline Phosphatase Total Protein Albumin Lipase Urine Color YELLOW Urine Appearance CLEAR Urine pH 6.0 Ur Specific Roe 1.010 Urine Protein NEG Urine Glucose (UA) NEG Urine Ketones NEG Urine Blood 2+ H Urine Nitrite NEG Ur Leukocyte Esterase NEG Urine RBC 0-2 Urine WBC 0-2 Ur Squamous Epith Cells TRACE Urine Bacteria NONE Vancomycin Trough COVID-19 (THOMAS) Negative COVID-19 [employer] mobile Com See Note 10/20/20 10/20/20 10/20/20 00:49 06:51 06:51 WBC 11.5 H RBC 3.81 L Hgb 11.4 L Hct 35.2 L MCV 92.4 MCH 29.9 MCHC 32.4 RDW 13.8 Plt Count 312 MPV 9.1 L Immature Gran % (Auto) 0.4 Neut % (Auto) 52.3 Lymph % (Auto) 37.8 [place] % (Auto) 7.2 Eos % (Auto) 1.6 Baso % (Auto) 0.7 Lymph # (Auto) 4.4 [place] # (Auto) 0.8 Eos # (Auto) 0.2 Baso # (Auto) 0.1 Abs Immat Gran (auto) 0.05 H Absolute Neuts (auto) 6.0 Absolute Nucleated RBC 0.000 Nucleated RBC % (auto) 0.0 PT 12.6 INR 1.1 Sodium Potassium Chloride Carbon Dioxide Anion Gap BUN Creatinine Estim Creat Clear Calc Estimated GFR Random Glucose Lactic Acid Calcium Total Bilirubin Direct Bilirubin AST ALT Alkaline Phosphatase Total Protein Albumin Lipase Urine Color Urine Appearance Urine pH Ur Specific Roe Urine Protein Urine Glucose (UA) Urine Ketones Urine Blood Urine Nitrite Ur Leukocyte Esterase Urine RBC Urine WBC Ur Squamous Epith Cells Urine Bacteria Vancomycin Trough 31.0 H* COVID-19 ([facility]OMAS) [employer] 10/21/20 14:11 WBC RBC Hgb Hct MCV MCH MCHC RDW Plt Count MPV Immature Gran % (Auto) Neut % (Auto) Lymph % (Auto) [place] % (Auto) Eos % (Auto) Baso % (Auto) Lymph # (Auto) [place] # (Auto) Eos # (Auto) Baso # (Auto) Abs Immat Gran (auto) Absolute Neuts (auto) Absolute Nucleated RBC Nucleated RBC % (auto) PT INR Sodium Potassium Chloride Carbon Dioxide Anion Gap BUN Creatinine Estim Creat Clear Calc Estimated GFR Random Glucose Lactic Acid Calcium Total Bilirubin Direct Bilirubin AST ALT Alkaline Phosphatase Total Protein Albumin Lipase Urine Color Urine Appearance Urine pH Ur Specific Roe Urine Protein Urine Glucose (UA) Urine Ketones Urine Blood Urine Nitrite Ur Leukocyte Esterase Urine RBC Urine WBC Ur Squamous Epith Cells Urine Bacteria Vancomycin Trough 11.4 COVID-19 (THOMAS) COVID-19 Clin Com Airway Mallampati Class: II TM Dist: >3cm Neck ROM: Full Loose/Missing/Broken Teeth: Yes and Upper Heart: RRR Lungs: CTA Assessment and Plan Assessment Anesthesia Assessment: Anesthesia Plan Discussed and Chart Reviewed Final Anesthetic Review NPO: Yes ASA Class: II Final Preanesthetic Review: Meds/Allgs Chart Reviewed, Consent Obtained/Reviewed and Anes Risks/Benef Reviewed Patient Risk: Low Procedure Risk: Intermediate Anesthetic Plan Anesthetic Plan: GA Disposition: Standard PACU
[2020-10-22] MEDS: Lactated Ringers 1,000 ML 50 ML IV (13:14)
--- NOTE | 2020-10-22 14:27 | P.OP_ITS ---
Operative Note Operative Note Date of Service: 10/22/20 Narrative: Preoperative diagnosis: Acute cholecystitis, cholelithiasis Postoperative diagnosis: Same Procedure: Laparoscopic cholecystectomy Surgeon: Conor Gar MD Special Order Jeweler: MAMI Torres Anesthesia: General endotracheal Indications for procedure: 49-year-old female presenting with complaints of abdominal pain of 2 days duration in the right upper quadrant radiating to the back associated with nausea and vomiting. Patient was found to have large gallstone within the gallbladder and a thickened gallbladder wall on radiologic workup Operative findings: Acutely inflamed gallbladder with fluid within the wall of the gallbladder. Large gallstone noted at the neck of the gallbladder. Specimen: Gallbladder Estimated blood loss: 5 mL Complications: None Procedure details: Patient was brought to the OR and placed in a supine position. After administering general anesthesia the patient's abdomen was prepped with ChloraPrep and draped in a sterile fashion. Local anesthesia consisting of 0.5% Sensorcaine with epinephrine was infiltrated in a periumbilical region. A 5 mm incision was made above the umbilicus in a transverse fashion. The Veress needle was then inserted while elevating abdominal cavity with towel clips. After positive drop test the abdomen was insufflated to a pressure of 15 mm of mercury. The Veress needle was then removed and a 5 mm trocar inserted. The camera was inserted in the abdomen explored. A 12 mm trocar was then placed in the epigastrium and 2 5 mm trocars placed in the right upper quadrant. The patient was placed in reverse Trendelenburg positioning and rotated to the left. The gallbladder was grasped with the fundus and retracted cephalad.. The infundibulum Was then grasped and retracted away from the liver bed. The Dolphin dissected was then used to dissect the peritoneum off the infundibulum to reveal the junction with the cystic duct. Cystic artery was noted slightly medial and posterior to the cystic duct. After obtaining a critical view the cystic duct was doubly clipped and divided. The cystic artery was then doubly clipped and divided. The gallbladder was then dissected off the liver bed using electrocautery with an L hook. Hemostasis was assured all times using the electrocautery. When the gallbladder is completely dissected off the liver bed was placed in an Endo- Catch bag and brought out through the epigastric incision. The gallbladder was sent to pathology for further examination. The abdomen was then re-examined. The liver bed was irrigated and suctioned dry. No bleeding or bile leak could be identified. CO2 was then evacuated and all trocars removed. Fascia was closed at the epigastric incision using a [id number] 0 Polysorb suture. Skin was closed in all incisions using a subcuticular 4 0 Polysorb suture. Sterile dressings consisting of Steri-Strips, 2 x 2 gauze, and Tegaderm were then applied. The patient tolerated the procedure well. Sponge instrument and needle counts reported as correct. The patient was transferred to PACU in stable condition.
[2020-10-22] MEDS: oxyCODONE HCl Immed Release 5 MG TABLET 10 MG PO (15:00)
[2020-10-22] MEDS: diphenhydrAMINE HCL 50 MG/ML VIAL 12.5 MG IVPUSH (15:58)
[2020-10-22] MEDS: 0.9 % Sodium Chloride Flush 3 ML SYRINGE IVFLUSH (16:26)
[2020-10-22] MEDS: ondansetron HCL 4 MG/2 ML VIAL IVPUSH (16:35)
[2020-10-22] MEDS: oxyCODONE HCl Immed Release 5 MG TABLET PO (22:05)
[2020-10-23] MEDS: Piperacillin Sodium/Tazobactam 3.375 GM in 0.9 % Sodium Chloride 50 ML IV ×3 (00:14→11:53)
[2020-10-23] MEDS: Acetaminophen 325 MG TABLET 650 MG PO ×2 (00:59→11:53)
[2020-10-23 04:00] VITALS: BP 141/69; PULSE 78; RESP 16; TEMP 37.3; O2SAT 96
[2020-10-23 07:40] VITALS: BP 132/63; PULSE 75; RESP 18; TEMP 36.8; O2SAT 94
[2020-10-23] MEDS: oxyCODONE HCl Immed Release 5 MG TABLET PO (07:40)
[2020-10-23] MEDS: 0.9 % Sodium Chloride Flush 3 ML SYRINGE IVFLUSH (07:41)
--- NOTE | 2020-10-23 07:53 | PM.PNGS ---
Subjective Subjective Date of Service: 10/23/20 Interval history: Aleksandra reports some incisional pain especially after sneezing. She tolerated liquids yesterday for dinner without nausea or vomiting. She will try solid foods this morning. She feels a little woozy when getting out of bed but overall feels improved. She reports a small bowel movement yesterday. Physical Exam Vital Signs: Vital Signs: Last Vital Signs Temp 98.2 F 10/23/20 07:40 Pulse 75 10/23/20 07:40 Resp 18 10/23/20 07:40 BP 132/63 10/23/20 07:40 Pulse Ox 94 10/23/20 07:40 Body Mass Index 25.2 Const: General: cooperative, healthy appearing, comfortable, no acute distress, well developed, alert, awake and Physically active Eyes: Sclerae: sclerae normal EOM: EOMs intact bilaterally GI: Other: Trocar incisions are clean, dry, and intact, with mild incisional tenderness Skin: Other: Warm, dry, no rash Extrem: General: Yes no clubbing, cyanosis or edema Progress Note: A&P Assessment and plan (1) Acute cholecystitis: Problem details: 49-year-old female with her 2nd episode of acute cholecystitis admitted over the weekend by Dr. Baires. She underwent laparoscopic cholecystectomy yesterday and tolerated the procedure well. Operative findings were consistent with acute cholecystitis due to cholelithiasis. A large gallstone was noted when she had in the neck of the gallbladder. She developed some postoperative nausea following the surgery but this is improved this morning. She still feels a little dizzy when getting out of bed. She is tolerating clear liquids without nausea or vomiting and will try solid food this morning. I will check back later today for probable discharge to home. Status: Acute Fall Risk Details Current Medications: Current Medications Generic Name Dose Route Start Last Admin Trade Name Freq PRN Reason Stop Dose Admin Acetaminophen 650 mg 10/19/20 22:49 10/23/20 00:59 Acetaminophen 325 Mg Tablet PO 650 mg Q6H PRN Administration Pain, Mild (Pain Scale 1-3) Piperacillin Sod/Tazobactam 50 mls @ 100 mls/hr 10/20/20 12:00 10/23/20 06:43 Sod 3.375 gm/ Sodium Chloride IV Infused Q6H JAIMEE Infusion Morphine Sulfate 4 mg 10/19/20 22:49 04/09/21 23:02 Morphine Sulfate 4 Mg/Ml Cartridge IVPUSH 4 mg Q4H PRN Administration Pain, Severe (Pain Scale 7-10) Ondansetron HCl 4 mg 10/22/20 16:17 10/22/20 16:35 Ondansetron Hcl 4 Mg/2 Ml Vial IVPUSH 4 mg Q6H PRN Administration Nausea Oxycodone HCl 5 mg 10/22/20 15:47 10/23/20 07:40 Oxycodone Hcl Immed Release 5 Mg Tablet PO 5 mg Q6H PRN Administration Pain, Moderate (Pain Scale 4-6 Pharmacy Consult 1 each 10/20/20 03:09 Consult Rx Vancomycin Dosing MISCELLANE DAILY PRN Consult order Sodium Chloride 3 ml 10/20/20 00:00 10/23/20 07:41 0.9 % Sodium Chloride Flush 3 Ml Syringe IVFLUSH 3 ml QSHIFT JAIMEE Administration Time Spent With Patient Time: Total time spent is greater than 50% in coordination of care (as documented) at patient's floor/unit and/or counseling patient: Time with patient: 15 - 24 minutes
--- NOTE | 2020-10-23 09:22 | MHC.CM.PN ---
NURSE PHYS ASSISTANT NOTE ELECTRONIC MEDICAL RECORD REVIEWED PER DOCUMENTATION S/P WILLAM GARCIA FOR ACUTE CHOLECYSTITIS SECONDARY TO CHOLELITHIASIS AND GALLSTONE, PATIENT HAS SOME POST OPERATIVE NAUSEA BUT IMPROVED THROUGH THE NIGHT and this morning patient tolerated liquid diet , has stool last night , but when getting up PATIENT COMPLAINS OF SOME DIZZINESS, PER DOCUMENTATION DIET WILL BE ADVANCED IF PATIENT FEELS BETTER WITH OUT DIZZINESS , ANTICIPATE DISCHARGE HOME NO SERVICES DISCHARGE PLAN HOME NO SERVICES TRANSPORTATION FAMILY PCP PATIENT TO CALL FOR POST HOSPITAL FOLLOW UP SURGICAL FOLLOW UP PER DISCHARGE INSTRUCTIONS
[2020-10-23 11:40] VITALS: BP 165/82; PULSE 78; RESP 19; TEMP 36.7; O2SAT 99
--- NOTE | 2020-10-23 11:56 | HO.POSTANES ---
Post Anesthesia Evaluation Post Anesthesia Evaluation Vital Signs: Vital Signs Temp Pulse Resp BP Pulse Ox 10/23/20 11:40 98.1 F 78 19 165/82 H 99 10/23/20 07:40 98.2 F 75 18 132/63 94 10/23/20 04:00 99.1 F 78 16 141/69 H 96 Anesthesia: General Endotracheal-GETA Mental Status: Awake Pain Control: Satisfactory Nausea/Vomiting: None Hydration: Adequate Anesthesia-Related Issues: No Anes. Related Issues
--- NOTE | 2020-10-23 13:07 | PM.DS ---
DS: Providers Provider Date of Service: 10/23/20 Date of admission: 10/19/20 22:49 Date of discharge: 10/23/20 Primary care physician: Immanuel Lin MD Admitting clinician: Stefanie Baires Attending physician on discharge: Conor Gar DS: Diagnosis Discharge Diagnosis (1) Acute cholecystitis: Status: Acute DS: Medications Discharge Medications Home Medications: Home Medications Medication Instructions Recorded Confirmed ibuprofen 800 mg tablet 800 mg PO TID PRN 06/22/20 06/23/20 sulfamethoxazole 800 1 tab PO BID 06/22/20 06/23/20 mg-trimethoprim 160 mg tablet cholecalciferol (vitamin D3) 50 50 mcg PO DAILY 06/23/20 06/23/20 mcg (2,000 unit) capsule fluticasone propionate 50 2 spray INTRANASAL DAILY 06/23/20 06/23/20 mcg/actuation nasal spray,suspension gabapentin 600 mg tablet 600 mg PO BID 06/23/20 06/23/20 paroxetine HCl 30 mg tablet 30 mg PO DAILY 06/23/20 06/23/20 propranolol 10 mg tablet 10 mg PO BID 06/23/20 06/23/20 tizanidine 4 mg tablet 4 mg PO TID PRN 06/23/20 06/23/20 Previous Rx's Medication Instructions Recorded atorvastatin 10 mg tablet 10 mg PO DAILY #30 tab 07/21/20 lorazepam 0.5 mg tablet 0.5 mg PO TID PRN 30 Days #90 tab 08/03/20 oxycodone 5 mg PO Q6H PRN #14 tab 10/23/20 DS: Summary Hospital Course Hospital Course: 49 yo female presented with complaints of right-sided abdominal pain with a burning sensation beginning approximately 04:00 on the day of admission (10/19/2020). She had a previous episode in 2010 which was described as a gallbladder attack but was subsequently treated with antibiotics and improved. She had no further recurrence of the symptoms until the day of admission. The pain was associated with nausea and vomiting with decreased appetite. The pain would radiate into the back and shoulder. Pain on admission was 9/10. She denied fevers chills diarrhea or constipation. She subsequently presented to the emergency department and was noted to be tender in the right upper quadrant with a positive Rivera sign. Workup with a CBC revealed a white count of 15,000. Ultrasound of the abdomen revealed a thickened gallbladder wall with gallstones consistent with acute cholecystitis. She was admitted to the surgical service and placed on IV antibiotics. Patient was subsequently taken to the OR on Thursday10/22/2020 for laparoscopic cholecystectomy. Operative findings were consistent with acute cholecystitis with a markedly inflamed gallbladder wall and a large gallstone wedged at the neck of the gallbladder. She tolerated the procedure well and was started on clear liquids postoperatively. She did report some nausea and dizziness on the night of surgery. By the next day however she was tolerating regular diet with decreased dizziness. She was able to ambulate independently and was comfortable on oral pain medications. The patient is discharged to home in stable condition on 10/23/2020. She was instructed to avoid heavy lifting or pulling for the next 2 weeks. She should remain on a low-fat diet for the next 4 weeks. I have asked her to return to the office in approximately 1 week for wound examination. She should call sooner for fever, chills, nausea, or vomiting. Time Spent with Patient Time attestation: Total time spent providing and/or coordinating discharge services: Discharge coordination time: Less than 30 minutes Physical Exam Vital Signs: Vital Signs: Last Vital Signs Temp 98.1 F 10/23/20 11:40 Pulse 78 10/23/20 11:40 Resp 19 10/23/20 11:40 BP 165/82 H 10/23/20 11:40 Pulse Ox 99 10/23/20 11:40 Body Mass Index 25.2 Const: General: cooperative, healthy appearing and comfortable Resp: Effort & Inspection: normal respiratory effort Cardio: Jugular venous distension: no JVD Rate: regular rate GI: Other: Wounds clean, dry, and intact. Abdomen is soft and nondistended. Skin: Other: Warm, dry, no rash Extrem: General: Yes no clubbing, cyanosis or edema DS: Data Data Completed and Pending Completed studies during hospitalization [Text1]: Pending at discharge 10/22/20 14:13 Surgical [PTH] Routine Labs on day of discharge: Preliminary micro results at discharge 10/19/20 22:08 Blood Culture - Preliminary Blood - Venous No growth after 48 hours. 10/19/20 22:04 Blood Culture - Preliminary Blood - Venous No growth after 48 hours. Discharge Plan Discharge Patient Disposition: Home, Self-Care Discharge Diagnosis: Acute cholecystitis due to cholelithiasis Referrals: Immanuel Lin MD [Primary Care Provider] - Conor Gar MD [Physician] - 1 Week Discharge Medications: New oxycodone 5 mg tablet 5 mg PO Q6H PRN (Reason: pain) Qty: 14 RF: 0 Continued atorvastatin 10 mg tablet 10 mg PO DAILY Qty: 30 RF: 3 lorazepam 0.5 mg tablet 0.5 mg PO TID PRN (Reason: anxiety) 30 Days Qty: 90 RF: 0 ibuprofen 800 mg tablet 800 mg PO TID PRNRF: 0 sulfamethoxazole-trimethoprim 800-160 mg tablet 1 tab PO BID RF: 0 cholecalciferol (vitamin D3) 50 mcg (2,000 unit) capsule 50 mcg PO DAILY RF: 0 propranolol 10 mg tablet 10 mg PO BID RF: 0 paroxetine HCl 30 mg tablet 30 mg PO DAILY RF: 0 gabapentin 600 mg tablet 600 mg PO BID RF: 0 tizanidine 4 mg tablet 4 mg PO TID PRNRF: 0 fluticasone propionate 50 mcg/actuation spray,suspension 2 spray intranasal DAILY RF: 0 Discharge Orders: Discharge Order (Routine); Ordered 10/23/20 Ordered By: Conor Gar Diet: regular diet Activity on Discharge: No heavy lifting Stand Alone Forms: Patient Portal Discharge page Activity Restrictions/Additional Instructions: If the incision area is tender, you may apply an ice pack for short intervals (No more than 20 minutes on, followed by at least 20 minutes off). Do not apply heat. Do not use creams, lotions, or topical antibiotics unless instructed to do so by your surgeon. These can cause infection or allergic reaction. Ok to shower. Call Your Doctor If: -Your temperature exceeds 101.5? F -You experience excessive pain or swelling -You have an unexpected reaction to medication -You have excessive bleeding -You experience continued vomiting/nausea -Your incision begins to separate -Your incision shows signs of infection such as increased redness, swelling, excessive pain, drainage (light blood or clear fluid is normal) or heat Care Plan Goals: Return to normal activity and diet Health Concerns: Acute cholecystitis, cholelithiasis Plan of Treatment: Laparoscopic cholecystectomy Assessment: Acute cholecystitis, cholelithiasis Patient Instructions: Laparoscopic Cholecystectomy (DC) Discharge Date/Time: 10/23/20 17:00
== END 2020-10-23 17:00 | disposition home or self-care (01) | DRG 263 ==
LOC: HO.ED 22:15 → HO.EDOVER 23:25 → HO.S3 10-20 00:59
PROVIDERS: Physician Assistant Surgical; Surgery; Admitting Provider Internal Medicine; Emergency Provider Student in an Organized Health Care Education/Training Program; PCP Internal Medicine; Visit Provider Surgery
PROC: 0FT44ZZ Resection of Gallbladder, Percutaneous Endoscopic Approach (ICD-10-PCS; CPT 47562; principal; 2020-10-22 14:10)
DX: K80.01 Calculus of gallbladder with acute cholecystitis with obstruction (principal); K82.1 Hydrops of gallbladder; Z20.822 Contact with and (suspected) exposure to COVID-19; Z79.1 Long term (current) use of non-steroidal anti-inflammatories (NSAID); Z79.52 Long term (current) use of systemic steroids; Z79.899 Other long term (current) drug therapy
CPT/HCPCS: 47562; 36415; 76705; 80048; 80076; 80202; 81001; 81003; 83605; 83690; 85025; 85610; 87040; 87635; 88304; 96365; 96375; 99024; 99285; J1100; J1170; J1200; J1885; J2250; J2270; J2405; J2543; J2550; J3010; J3370

== ENCOUNTER → 2020-11-01 13:51 | Outpatient (BNVA) | payer BC, SELFPAY | PROVIDERS: PCP Internal Medicine; Visit Provider Surgery ==

== ENCOUNTER 2021-03-14 09:50 | Outpatient (REF) | payer BC, SELFPAY ==
--- NOTE | ~2021-03-14 | MM_ITS ---
EXAMINATION: MM SCREENING DIGITAL BREAST TOMOSYNTHESIS, BILATERAL CLINICAL INFORMATION: Screening. Asymptomatic. Age 50. No prior breast imaging. No known family history breast cancer. The lifetime risk of breast cancer based on the Tyrer-Cuzick Model is 5%. COMPARISON: None (current study represents initial baseline exam). TECHNIQUE: Digital breast tomosynthesis is performed in both the craniocaudal and mediolateral oblique views along with computer-aided detection (CAD). Synthesized 2D images are generated from the tomosynthesis. Additional left CC view is provided. FINDINGS: There are scattered areas of fibroglandular density (ACR BI-RADS breast composition Category b). There are no significant masses, abnormal calcifications, or other abnormalities. The axilla and skin contours are unremarkable. MM/MM tomosynthesis screening BI IMPRESSION: No mammographic evidence of malignancy. ASSESSMENT: BI-RADS 1: Negative RECOMMENDATION: Routine annual mammography screening. This patient's information was entered into a reminder system with a target due date for their next mammogram.
== END 2021-03-14 09:51 | disposition home or self-care (01) ==
LOC: HO.MAMMO 09:50
PROVIDERS: PCP Internal Medicine; Visit Provider Internal Medicine
DX: Z12.31 Encounter for screening mammogram for malignant neoplasm of breast (principal)
CPT/HCPCS: 77063; 77067

== ENCOUNTER 2021-04-10 08:43 | Outpatient (REF) | payer BC, SELFPAY ==
[2021-04-10 10:09] LABS: Appearance Urine CLEAR; Color Urine YELLOW; Glucose Urine UA NEG (NEG); Leukocyte Esterase Urine NEG (NEG); Nitrite Urine NEG (NEG); PH 5.5 (5.0-8.0); UACC Culture Trigger NO; Urine Blood TRACE (NEG); Urine Ketones NEG (NEG); Urine Protein NEG (NEG-TRACE)
[2021-04-10 10:13] LABS: MANUAL DIFF FLAG NO
[2021-04-10 10:25] LABS: Basophils Absolute Auto 0.1 X10*3/uL (0.0-0.2); Basophils Percent Auto 0.9 % (0-2); Eosinophils Absolute Auto 0.3 X10*3/uL (0.0-0.4); Eosinophils Percent Auto 3.2 % (0-4); Hematocrit 40.1 % (37-47); Imm Gran Abs Auto 0.05 X10*3/uL (0.00-0.03); Imm Gran Pct Auto 0.5 % (0.0-0.4); Lymphocytes Absolute Auto 3.4 X10*3/uL (1.2-4.9); Lymphocytes Percent Auto 33.8 % (20-40); Mean Corpuscular HGB Conc 32.4 g/dl (31.0-35.0); Mean Corpuscular Hemoglobin 30.4 pg (27.0-33.0); Mean Corpuscular Volume 93.7 fL (80-98); Mean Platelet Volume 9.7 fL (9.4-12.3); Monocytes Absolute Auto 0.7 X10*3/uL (0.1-1.2); Monocytes Percent Auto 7.2 % (2-11); Neutrophils Absolute Auto 5.5 X10*3/uL (2.0-8.3); Neutrophils Percent Auto 54.4 % (45-73); Platelet Count 373 X10*3/uL (160-400); Red Blood Count 4.28 X10*6/uL (4.20-5.50); Red Cell Distribution Width 13.7 % (11.0-16.0); White Blood Count 10.1 X10*3/uL (4.8-10.8)
[2021-04-10 10:45] LABS: RBC Urine 0-2 /HPF (0); Squamous Epithelial Cell Urine TRACE /LPF; WBC Urine 0 /HPF (0-4)
[2021-04-10 10:59] LABS: Alanine Aminotransferase 22 U/L (0-31); Albumin Level 4.4 g/dL (3.5-5.0); Alkaline Phosphatase 115 U/L (39-117); Anion Gap 15 (12-20); Aspartate Amino Transferase 17 U/L (5-31); Bilirubin Total 0.5 mg/dL (0.0-1.0); Blood Urea Nitrogen 9 mg/dL (9-16); Calcium 9.6 mg/dL (8.4-10.2); Carbon Dioxide 24 mmol/L (22-29); Chloride 106 mmol/L (96-108); Cholesterol 163 mg/dL; Estimated Glomerular Filt Rate 51; Glucose Fasting 139 mg/dL (60-99); HDL Cholesterol 47 mg/dL; LDL Cholesterol Calculated 100 mg/dl; Potassium 4.3 mmol/L (3.3-5.1); Sodium 141 mmol/L (135-145); Total Protein 6.8 g/dL (6.5-8.0); Triglycerides 82 mg/dL
[2021-04-10 11:13] LABS: TSH reflex Free T4 0.78 uIU/mL (0.32-4.0); Vitamin D 25-OH Total 24.1 ng/mL (>30)
== END 2021-04-10 08:44 | disposition home or self-care (01) ==
LOC: HO.10HDL 08:43
PROVIDERS: Visit Provider Internal Medicine
DX: K21.9 Gastro-esophageal reflux disease without esophagitis (principal); R00.2 Palpitations; G43.909 Migraine, unspecified, not intractable, without status migrainosus; E78.00 Pure hypercholesterolemia, unspecified; R73.01 Impaired fasting glucose; G47.61 Periodic limb movement disorder; E55.9 Vitamin D deficiency, unspecified
CPT/HCPCS: 36415; 80053; 80061; 81001; 82306; 84443; 85025

== ENCOUNTER 2021-09-28 08:39 | Outpatient (REF) | payer BC, SELFPAY ==
[2021-09-28 09:17] LABS: MANUAL DIFF FLAG NO
[2021-09-28 09:34] LABS: Basophils Absolute Auto 0.1 X10*3/uL (0.0-0.2); Basophils Percent Auto 0.9 % (0-2); Eosinophils Absolute Auto 0.3 X10*3/uL (0.0-0.4); Hematocrit 40.7 % (37.0-47.0); Hemoglobin 13.2 g/dl (12.0-16.0); Imm Gran Abs Auto 0.04 X10*3/uL (0.00-0.03); Imm Gran Pct Auto 0.4 % (0.0-0.4); Lymphocytes Absolute Auto 3.4 X10*3/uL (1.2-4.9); Lymphocytes Percent Auto 34.8 % (20-40); Mean Corpuscular HGB Conc 32.4 g/dl (31.0-35.0); Mean Corpuscular Hemoglobin 30.6 pg (27.0-33.0); Mean Corpuscular Volume 94.2 fL (80.0-98.0); Mean Platelet Volume 9.5 fL (9.4-12.3); Monocytes Absolute Auto 0.7 X10*3/uL (0.1-1.2); Monocytes Percent Auto 7.1 % (2-11); Neutrophils Absolute Auto 5.2 x10*3/uL (2.0-8.3); Neutrophils Percent Auto 53.8 % (45-73); Platelet Count 338 X10*3/uL (160-400); Red Blood Count 4.32 X10*6/uL (4.20-5.50); Red Cell Distribution Width 13.6 % (11.0-16.0); White Blood Count 9.6 X10*3/uL (4.8-10.8)
[2021-09-28 09:37] LABS: Appearance Urine HAZY; Color Urine YELLOW; Glucose Urine UA NEG (NEG); Leukocyte Esterase Urine TRACE (NEG); Nitrite Urine NEG (NEG); Specific Gravity - Urine >= 1.030 (1.005-1.025); UACC Culture Trigger YES; Urine Blood 1+ (NEG); Urine Ketones NEG (NEG); Urine Protein TRACE MG/DL (NEG-TRACE)
[2021-09-28 10:01] LABS: Alanine Aminotransferase 24 U/L (0-31); Albumin Level 4.5 g/dL (3.5-5.0); Alkaline Phosphatase 116 U/L (39-117); Anion Gap 13 (12-20); Aspartate Amino Transferase 18 U/L (5-31); Bilirubin Total 0.7 mg/dL (0.0-1.0); Blood Urea Nitrogen 16 mg/dL (9-16); Calcium 10.1 mg/dL (8.4-10.2); Carbon Dioxide 27 mmol/L (22-29); Chloride 108 mmol/L (96-108); Cholesterol 160 mg/dL; Estimated Glomerular Filt Rate 60; Glucose Fasting 113 mg/dL (60-99); HDL Cholesterol 37 mg/dL; LDL Cholesterol Calculated 102 mg/dl; Potassium 4.3 mmol/L (3.3-5.1); Sodium 144 mmol/L (135-145); Triglycerides 109 mg/dL
[2021-09-28 10:24] LABS: TSH reflex Free T4 0.56 uIU/mL (0.32-4.0); Vitamin D 25-OH Total 27.6 ng/mL (>30)
[2021-09-28 10:27] LABS: Bacteria Urine 1+ /LPF; Mucus Urine 1+ /LPF; Squamous Epithelial Cell Urine 2+ /LPF
== END 2021-09-28 08:40 | disposition home or self-care (01) ==
LOC: HO.LAB 08:39
PROVIDERS: PCP Internal Medicine; Visit Provider Internal Medicine
DX: I10 Essential (primary) hypertension (principal); E78.00 Pure hypercholesterolemia, unspecified; E55.9 Vitamin D deficiency, unspecified
CPT/HCPCS: 36415; 80053; 80061; 81001; 82306; 84443; 85025; 87086

== ENCOUNTER 2021-11-08 11:29 | Outpatient (REF) | payer BC, SELFPAY ==
[2021-11-08 12:34] LABS: COVID-19 Test Negative (Negative); IDNOW Serial# 16C4AD1C
== END 2021-11-08 11:30 | disposition home or self-care (01) ==
LOC: HO.LAB 11:29
PROVIDERS: Visit Provider Internal Medicine
DX: Z20.822 Contact with and (suspected) exposure to COVID-19 (principal)
CPT/HCPCS: 87635; C9803

== ENCOUNTER 2021-12-17 13:04 | Outpatient (REF) | payer BC, SELFPAY ==
[2021-12-18 13:01] LABS: BV Int Neg Control Negative (Negative); BV Int Pos Control Positive (Positive)
== END 2021-12-17 13:05 | disposition home or self-care (01) ==
LOC: HO.LAB 13:04
PROVIDERS: PCP Internal Medicine; Visit Provider Advanced Practice Midwife
DX: Z01.411 Encounter for gynecological examination (general) (routine) with abnormal findings (principal); R10.2 Pelvic and perineal pain; N89.8 Other specified noninflammatory disorders of vagina; R23.2 Flushing
CPT/HCPCS: 81003; 87086; 87480; 87510; 87660

== ENCOUNTER 2022-02-28 08:21 | Outpatient (REF) | payer BC, SELFPAY ==
[2022-02-28 10:28] LABS: MANUAL DIFF FLAG NO
[2022-02-28 10:32] LABS: Basophils Absolute Auto 0.1 X10*3/uL (0.0-0.2); Basophils Percent Auto 1.2 % (0-2); Eosinophils Absolute Auto 0.4 X10*3/uL (0.0-0.4); Eosinophils Percent Auto 3.8 % (0-4); Hematocrit 40.8 % (37.0-47.0); Hemoglobin 13.4 g/dl (12.0-16.0); Imm Gran Abs Auto 0.05 X10*3/uL (0.00-0.03); Imm Gran Pct Auto 0.5 % (0.0-0.4); Lymphocytes Absolute Auto 3.7 X10*3/uL (1.2-4.9); Lymphocytes Percent Auto 34.5 % (20-40); Mean Corpuscular HGB Conc 32.8 g/dl (31.0-35.0); Mean Corpuscular Hemoglobin 30.6 pg (27.0-33.0); Mean Corpuscular Volume 93.2 fL (80.0-98.0); Mean Platelet Volume 9.6 fL (9.4-12.3); Monocytes Absolute Auto 0.9 X10*3/uL (0.1-1.2); Monocytes Percent Auto 8.3 % (2-11); Neutrophils Absolute Auto 5.6 x10*3/uL (2.0-8.3); Neutrophils Percent Auto 51.7 % (45-73); Platelet Count 358 X10*3/uL (160-400); Red Blood Count 4.38 X10*6/uL (4.20-5.50); Red Cell Distribution Width 13.2 % (11.0-16.0); White Blood Count 10.8 X10*3/uL (4.8-10.8)
[2022-02-28 10:49] LABS: Alanine Aminotransferase 19 U/L (0-31); Albumin Level 4.4 g/dL (3.5-5.0); Alkaline Phosphatase 105 U/L (39-117); Anion Gap 15 (12-20); Aspartate Amino Transferase 18 U/L (5-31); Bilirubin Total 0.6 mg/dL (0.0-1.0); Blood Urea Nitrogen 17 mg/dL (9-16); Calcium 9.6 mg/dL (8.4-10.2); Carbon Dioxide 26 mmol/L (22-29); Chloride 103 mmol/L (96-108); Cholesterol 190 mg/dL; Estimated Glomerular Filt Rate 54; Glucose Fasting 134 mg/dL (60-99); HDL Cholesterol 39 mg/dL; LDL Cholesterol Calculated 118 mg/dl; Potassium 4.1 mmol/L (3.3-5.1); Sodium 140 mmol/L (135-145); Total Protein 6.9 g/dL (6.5-8.0); Triglycerides 166 mg/dL
[2022-02-28 10:56] LABS: Appearance Urine Clear; Color Urine Yellow; Glucose Urine UA Negative (Negative); Leukocyte Esterase Urine Negative (Negative); Nitrite Urine Negative (Negative); Specific Gravity - Urine 1.015 (1.005-1.025); Urine Blood Small (1+) (Negative); Urine Ketones Negative (Negative); Urine Protein Negative (Neg-Trace)
[2022-02-28 11:09] LABS: Bacteria Urine Trace (None Seen); Hyaline Casts Urine 0-2 /LPF (0-2); RBC Urine 0-2 /HPF (0-2); WBC Urine 0-5 /HPF (0-5)
[2022-02-28 11:10] LABS: TSH reflex Free T4 0.84 uIU/mL (0.32-4.0); Vitamin D 25-OH Total 30.8 ng/mL (>30)
== END 2022-02-28 08:22 | disposition home or self-care (01) ==
LOC: HO.10HDL 08:21
PROVIDERS: Visit Provider Internal Medicine
DX: E78.00 Pure hypercholesterolemia, unspecified (principal); E55.9 Vitamin D deficiency, unspecified; I10 Essential (primary) hypertension
CPT/HCPCS: 36415; 80053; 80061; 81001; 82306; 84443; 85025

== ENCOUNTER 2022-03-21 12:09 | Outpatient (REF) | payer BC, SELFPAY ==
--- NOTE | ~2022-03-21 | MM_ITS ---
EXAMINATION: MM SCREENING DIGITAL BREAST TOMOSYNTHESIS, BILATERAL CLINICAL INFORMATION: Screening. Asymptomatic. The lifetime risk of breast cancer based on the Tyrer-Cuzick Model is 6%. COMPARISON: Mammography: 03/14/2021 (baseline). TECHNIQUE: Digital breast tomosynthesis is performed in both the craniocaudal and mediolateral oblique views along with computer-aided detection (CAD). Synthesized 2D images are generated from the tomosynthesis. FINDINGS: There are scattered areas of fibroglandular density (ACR BI-RADS breast composition Category b). There are no significant masses, abnormal calcifications, or other abnormalities. Parenchymal pattern is similar to prior studies. There is no developing density or architectural abnormality. The axilla and skin contours are unremarkable. No significant changes. MM/MM tomosynthesis screening BI IMPRESSION: No mammographic evidence of malignancy. ASSESSMENT: BI-RADS 1: Negative RECOMMENDATION: Routine annual mammography screening. This patient's information was entered into a reminder system with a target due date for their next mammogram.
== END 2022-03-21 12:10 | disposition home or self-care (01) ==
LOC: HO.MAMMO 12:09
PROVIDERS: PCP Internal Medicine; Visit Provider Internal Medicine
DX: Z12.31 Encounter for screening mammogram for malignant neoplasm of breast (principal)
CPT/HCPCS: 77063; 77067

== ENCOUNTER 2022-05-19 13:37 | Outpatient (REF) | payer BC, SELFPAY ==
[2022-05-19 17:14] LABS: CT PCR NOT DETECTED (Not Detect.); NG PCR NOT DETECTED (Not Detect.)
[2022-05-20 10:31] LABS: BV Int Neg Control Negative (Negative); BV Int Pos Control Positive (Positive)
== END 2022-05-19 13:38 | disposition home or self-care (01) ==
LOC: HO.LNP 13:37
PROVIDERS: Visit Provider Advanced Practice Midwife
DX: Z11.3 Encounter for screening for infections with a predominantly sexual mode of transmission (principal); N89.8 Other specified noninflammatory disorders of vagina
CPT/HCPCS: 87480; 87491; 87510; 87591; 87660

== ENCOUNTER 2022-06-20 08:59 | Outpatient (REF) | payer BC, SELFPAY ==
[2022-06-20 10:39] LABS: MANUAL DIFF FLAG NO
[2022-06-20 10:46] LABS: Basophils Absolute Auto 0.1 X10*3/uL (0.0-0.2); Basophils Percent Auto 1.5 % (0-2); Eosinophils Absolute Auto 0.3 X10*3/uL (0.0-0.4); Eosinophils Percent Auto 3.4 % (0-4); Hematocrit 41.8 % (37.0-47.0); Hemoglobin 13.8 g/dl (12.0-16.0); Imm Gran Abs Auto 0.03 X10*3/uL (0.00-0.03); Imm Gran Pct Auto 0.3 % (0.0-0.4); Lymphocytes Absolute Auto 2.9 X10*3/uL (1.2-4.9); Lymphocytes Percent Auto 30.3 % (20-40); Mean Corpuscular Hemoglobin 30.7 pg (27.0-33.0); Mean Corpuscular Volume 92.9 fL (80.0-98.0); Mean Platelet Volume 9.4 fL (9.4-12.3); Monocytes Absolute Auto 0.8 X10*3/uL (0.1-1.2); Monocytes Percent Auto 8.3 % (2-11); Neutrophils Absolute Auto 5.3 x10*3/uL (2.0-8.3); Neutrophils Percent Auto 56.2 % (45-73); Platelet Count 351 X10*3/uL (160-400); Red Cell Distribution Width 13.2 % (11.0-16.0); White Blood Count 9.4 X10*3/uL (4.8-10.8)
[2022-06-20 10:51] LABS: Appearance Urine Clear; Color Urine Dark Yellow; Glucose Urine UA Negative (Negative); Leukocyte Esterase Urine Negative (Negative); Nitrite Urine Negative (Negative); UMIC TRIGGER UACC YES; Urine Blood Small (1+) (Negative); Urine Ketones Trace mg/dL (Negative); Urine Protein Negative (Neg-Trace)
[2022-06-20 11:21] LABS: Bacteria Urine None Seen (None Seen); Estimated Average Glucose 123 mg/dL; Hemoglobin A1c % 5.9 %; Hyaline Casts Urine 0-2 /LPF (0-2); WBC Urine 0-5 /HPF (0-5)
[2022-06-20 12:49] LABS: Alanine Aminotransferase 21 U/L (0-31); Albumin Level 4.6 g/dL (3.5-5.0); Alkaline Phosphatase 111 U/L (39-117); Anion Gap 12 (12-20); Aspartate Amino Transferase 19 U/L (5-31); Bilirubin Total 0.5 mg/dL (0.0-1.0); Blood Urea Nitrogen 15 mg/dL (9-16); Calcium 9.9 mg/dL (8.4-10.2); Carbon Dioxide 27 mmol/L (22-29); Chloride 106 mmol/L (96-108); Cholesterol 173 mg/dL; Estimated Glomerular Filt Rate 55; Glucose Fasting 107 mg/dL (60-99); HDL Cholesterol 40 mg/dL; LDL Cholesterol Calculated 109 mg/dl; Potassium 4.4 mmol/L (3.3-5.1); Sodium 141 mmol/L (135-145); TSH reflex Free T4 0.82 uIU/mL (0.32-4.0); Total Protein 7.1 g/dL (6.5-8.0); Triglycerides 123 mg/dL; Vitamin D 25-OH Total 36.8 ng/mL (>30)
== END 2022-06-20 09:00 | disposition home or self-care (01) ==
LOC: HO.10HDL 08:59
PROVIDERS: Visit Provider Internal Medicine
DX: I10 Essential (primary) hypertension (principal); E55.9 Vitamin D deficiency, unspecified; R73.01 Impaired fasting glucose; E78.00 Pure hypercholesterolemia, unspecified
CPT/HCPCS: 36415; 80053; 80061; 81001; 82306; 83036; 84443; 85025

== ENCOUNTER 2022-10-24 10:13 | Outpatient (REF) | payer BC, SELFPAY ==
[2022-10-24 13:28] LABS: MANUAL DIFF FLAG NO
[2022-10-24 13:38] LABS: Appearance Urine Clear; Color Urine Yellow; Glucose Urine UA Negative (Negative); Leukocyte Esterase Urine Trace (Negative); Nitrite Urine Negative (Negative); Specific Gravity - Urine <= 1.005 (1.005-1.025); UMIC TRIGGER UACC YES; Urine Blood Trace (Negative); Urine Ketones Negative (Negative); Urine Protein Negative (Neg-Trace)
[2022-10-24 13:43] LABS: Bacteria Urine None Seen (None Seen); Hyaline Casts Urine 0-2 /LPF (0-2); RBC Urine 0-2 /HPF (0-2); Squamous Epithelial Cell Urine 0-2 /HPF (0-2); WBC Urine 0-5 /HPF (0-5)
[2022-10-24 13:53] LABS: Basophils Absolute Auto 0.1 X10*3/uL (0.0-0.2); Basophils Percent Auto 0.9 % (0-2); Eosinophils Absolute Auto 0.4 X10*3/uL (0.0-0.4); Eosinophils Percent Auto 2.8 % (0-4); Hematocrit 41.1 % (37.0-47.0); Hemoglobin 13.4 g/dl (12.0-16.0); Imm Gran Abs Auto 0.07 X10*3/uL (0.00-0.03); Imm Gran Pct Auto 0.5 % (0.0-0.4); Lymphocytes Absolute Auto 3.6 X10*3/uL (1.2-4.9); Lymphocytes Percent Auto 27.9 % (20-40); Mean Corpuscular HGB Conc 32.6 g/dl (31.0-35.0); Mean Corpuscular Hemoglobin 30.2 pg (27.0-33.0); Mean Corpuscular Volume 92.8 fL (80.0-98.0); Mean Platelet Volume 9.3 fL (9.4-12.3); Monocytes Absolute Auto 0.9 X10*3/uL (0.1-1.2); Monocytes Percent Auto 6.9 % (2-11); Neutrophils Absolute Auto 7.9 x10*3/uL (2.0-8.3); Platelet Count 339 X10*3/uL (160-400); Red Blood Count 4.43 X10*6/uL (4.20-5.50); Red Cell Distribution Width 13.7 % (11.0-16.0)
[2022-10-24 14:05] LABS: Estimated Average Glucose 120 mg/dL; Hemoglobin A1c % 5.8 %
[2022-10-24 14:14] LABS: Alanine Aminotransferase 32 U/L (0-31); Albumin Level 4.6 g/dL (3.5-5.0); Alkaline Phosphatase 123 U/L (39-117); Anion Gap 12 (12-20); Aspartate Amino Transferase 26 U/L (5-31); Bilirubin Total 0.5 mg/dL (0.0-1.0); Blood Urea Nitrogen 20 mg/dL (9-16); Calcium 9.8 mg/dL (8.4-10.2); Carbon Dioxide 27 mmol/L (22-29); Chloride 110 mmol/L (96-108); Cholesterol 197 mg/dL; Estimated Glomerular Filt Rate 58; Glucose Fasting 95 mg/dL (60-99); HDL Cholesterol 50 mg/dL; LDL Cholesterol Calculated 129 mg/dl; Potassium 4.6 mmol/L (3.3-5.1); Sodium 144 mmol/L (135-145); Total Protein 7.1 g/dL (6.5-8.0); Triglycerides 90 mg/dL
[2022-10-24 14:30] LABS: TSH reflex Free T4 0.73 uIU/mL (0.32-4.0); Vitamin D 25-OH Total 22.3 ng/mL (>30)
== END 2022-10-24 10:14 | disposition home or self-care (01) ==
LOC: HO.10HDL 10:13
PROVIDERS: Visit Provider Internal Medicine
DX: E78.00 Pure hypercholesterolemia, unspecified (principal); I10 Essential (primary) hypertension; E55.9 Vitamin D deficiency, unspecified; R73.01 Impaired fasting glucose; R30.0 Dysuria
CPT/HCPCS: 36415; 80053; 80061; 81001; 82306; 83036; 84443; 85025

== ENCOUNTER 2022-12-19 12:53 | Outpatient (REF) | payer BC, SELFPAY ==
[2022-12-20 14:52] LABS: BV Int Neg Control Negative (Negative); BV Int Pos Control Positive (Positive)
[2022-12-23 22:08] LABS: HPV mRNA E6/E7 rflx Not Detected (Not Detected)
== END 2022-12-19 12:54 | disposition home or self-care (01) ==
LOC: HO.LNP 12:53
PROVIDERS: PCP Internal Medicine; Visit Provider Advanced Practice Midwife
DX: Z01.419 Encounter for gynecological examination (general) (routine) without abnormal findings (principal); Z11.51 Encounter for screening for human papillomavirus (HPV)
CPT/HCPCS: 87480; 87510; 87624; 87660; 88142

== ENCOUNTER 2023-02-25 09:09 | Outpatient (REF) | payer BC, SELFPAY ==
[2023-02-25 09:53] LABS: MANUAL DIFF FLAG NO
[2023-02-25 10:02] LABS: Basophils Absolute Auto 0.1 X10*3/uL (0.0-0.2); Eosinophils Absolute Auto 0.3 X10*3/uL (0.0-0.4); Hematocrit 41.5 % (37.0-47.0); Hemoglobin 13.6 g/dl (12.0-16.0); Imm Gran Abs Auto 0.04 X10*3/uL (0.00-0.03); Imm Gran Pct Auto 0.4 % (0.0-0.4); Lymphocytes Absolute Auto 3.3 X10*3/uL (1.2-4.9); Lymphocytes Percent Auto 34.7 % (20-40); Mean Corpuscular HGB Conc 32.8 g/dl (31.0-35.0); Mean Corpuscular Hemoglobin 30.5 pg (27.0-33.0); Mean Platelet Volume 9.5 fL (9.4-12.3); Monocytes Absolute Auto 0.7 X10*3/uL (0.1-1.2); Monocytes Percent Auto 7.6 % (2-11); Neutrophils Absolute Auto 5.1 x10*3/uL (2.0-8.3); Neutrophils Percent Auto 53.3 % (45-73); Platelet Count 382 X10*3/uL (160-400); Red Blood Count 4.46 X10*6/uL (4.20-5.50); Red Cell Distribution Width 13.3 % (11.0-16.0); White Blood Count 9.6 X10*3/uL (4.8-10.8)
[2023-02-25 10:09] LABS: Estimated Average Glucose 114 mg/dL; Hemoglobin A1C 136.1903 umol/L; Hemoglobin A1c % 5.6 %
[2023-02-25 10:25] LABS: Alanine Aminotransferase 17 U/L (0-31); Albumin Level 4.5 g/dL (3.5-5.0); Alkaline Phosphatase 105 U/L (39-117); Anion Gap 13 (12-20); Aspartate Amino Transferase 16 U/L (5-31); Bilirubin Total 0.6 mg/dL (0.0-1.0); Blood Urea Nitrogen 18 mg/dL (9-16); Calcium 10.1 mg/dL (8.4-10.2); Carbon Dioxide 27 mmol/L (22-29); Chloride 106 mmol/L (96-108); Cholesterol 176 mg/dL; Estimated Glomerular Filt Rate 51; Glucose Fasting 130 mg/dL (60-99); HDL Cholesterol 37 mg/dL; LDL Cholesterol Calculated 114 mg/dl; Potassium 3.9 mmol/L (3.3-5.1); Sodium 142 mmol/L (135-145); Total Protein 7.3 g/dL (6.5-8.0); Triglycerides 128 mg/dL
[2023-02-25 10:40] LABS: Vitamin D 25-OH Total 43.9 ng/mL (>30)
[2023-02-25 10:44] LABS: Appearance Urine Clear; Color Urine Yellow; Glucose Urine UA Negative (Negative); Leukocyte Esterase Urine Negative (Negative); Nitrite Urine Negative (Negative); Urine Blood Negative (Negative); Urine Ketones Negative (Negative); Urine Protein Negative (Neg-Trace)
== END 2023-02-25 09:10 | disposition home or self-care (01) ==
LOC: HO.10HDL 09:09
PROVIDERS: Visit Provider Internal Medicine
DX: I10 Essential (primary) hypertension (principal); E78.00 Pure hypercholesterolemia, unspecified; R73.01 Impaired fasting glucose; R30.0 Dysuria; E55.9 Vitamin D deficiency, unspecified
CPT/HCPCS: 36415; 80053; 80061; 81003; 82306; 83036; 84443; 85025

== ENCOUNTER 2023-02-27 13:19 | Outpatient (AMB) | payer BC, SELFPAY ==
[2023-02-27 13:23] VITALS: BP 122/86; PULSE 97; O2SAT 98; BMI 24.9
--- NOTE | 2023-02-27 13:23 | MHC.PC.OV ---
Vital Signs 02/27/23 13:23 Height 5 ft 2 in Weight 136 lb 6 oz BMI 24.9 BP 122/86 Blood Pressure Location Lt brachial Position Sitting Pulse 97 Pulse Source Pulse Oximeter Pulse Oximetry (%) 98 Oxygen Delivery Method Room Air Intake Visit Reasons: 4 month f/u Cook Apprentice Required: No Accompanied by: Self / Same As Patient Allergies No Known Allergies [No Known Allergies*] Allergy (Verified 02/27/23 13:40) Medication List - Last Reconciled 02/27/23 by Immanuel Lin MD atorvastatin 10 mg PO DAILY 90 days cholecalciferol (vitamin D3) 50 mcg PO DAILY fluticasone propionate 50 mcg/actuation 2 sprays intranasal DAILY gabapentin 600 mg PO BID ibuprofen 800 mg PO TID PRN 30 days Lactobacillus acidophilus (Probiotic Acidophilus) 100 mmu cells PO DAILY lorazepam 0.5 mg PO TID PRN 30 days Tobacco use date assessed: 02/27/23 Dental Screening Dental Screen Date: 02/27/23 Did you have a dental visit in the last 12 months?: No Did you have a dental problem in the last 6 months where you did not have access to dental care?: No Was dental information given to patient?: No HPI 4 month f/u HPI Details Patient comes in today for her follow up visit States that she feels okay She denies any headaches or dizziness Denies any chest pains, no SOB No nausea/vomiting, no abdominal pain No change in bowel habits noted Still has on and off low back pain but states that her back pain has been manageable and her current Rx helps when needed Would like to get Rx for an inhaler that she can use as she states that she often gets a lot of allergy symptoms around March (fall allergies?) Has been using some OTC inhaler that she has been getting on IPexpert (Primatene mist) and is wondering if that is okay to continue using States that she is still working on quitting smoking and has been able to cut down on her smoking some more from before Had her follow up labs done a couple of days ago - to discuss her results [facility] Medical History Anxiety Depression GERD without esophagitis Impaired fasting glucose Lumbar degenerative disc disease Migraine Mild obstructive sleep apnea Palpitations Periodic limb movement disorder Pure hypercholesterolemia Vitamin D deficiency Surgical History Hx laparoscopic cholecystectomy (10/22/20) No pertinent past surgical history Family History Father Cancer Mother CVD (cardiovascular disease) Social History Household Members: Family Housing: House Do you presently have visiting nurse or other home services: No Alcohol intake: never Patient Tobacco Use Status: Current everyday Tobacco user Tobacco use type: Cigarette Cigarette Packs Per Day: 0.5 Cigarettes Per Day: 10 Years Smoked: 15 e-Cigarette/Vaping Use: Never Used Second Hand Smoke Exposure: No service: No Current occupational status: unemployed Sexual orientation: Straight/Heterosexual Gender identity: Female Cognitive needs: No Hearing needs: No Vision needs: Yes Questionnaire PHQ-9 Over the last 2 weeks, how often have you been bothered by any of the following problems? 1. Little interest or pleasure in doing things: not at all 2. Feeling down, depressed, or hopeless: not at all 3. Trouble falling or staying asleep, or sleeping too much: not at all 4. Feeling tired or having little energy: not at all 5. Poor appetite or overeating: not at all 6. Feeling bad about yourself - or that you are a failure or have let yourself or your family down: not at all 7. Trouble concentrating on things, such as reading the newspaper or watching television: not at all 8. Moving or speaking so slowly that other people could have noticed. Or the opposite - being so fidgety or restless that you have been moving around a lot more than usual: not at all 9. Thoughts that you would be better off or of hurting yourself in some way: not at all Total score: 0 Depression Screening Interpretation: Negative 64252 - PHQ-9 Billing: Yes Source: Developed by Drs. Thomas Brady, Zeny Boyce, Ray Mcgovern and colleagues, with an educational yaya from [employer]. Thrive Questionnaire Date Thrive assessed: 02/27/23 I am a: Patient What is your living situation today?: I have a steady place to live Within the past 12 months, did the food you bought not last and you didn't have the money to get more?: Never true Within the past 12 months, did you worry whether your food would run out before you got money to buy more?: Never true Do you have trouble paying for medicines?: No Do you have trouble getting transportation to medical appointments?: No Do you have trouble paying your heating and electricity bill?: No Do you have trouble taking care of your child, family member or friend?: No Do you have trouble with day-to-day activities such as bathing, preparing meals, shopping, managing finances, etc.?: No Are you currently unemployed and looking for a job?: No Are you interested in more education?: No Please select the resources that you would like help with: None Currently or been in a relationship where the following occur: no concerns reported AUDIT C Alcohol Use Questionnaire (AUDIT-C) 1. How often do you have a drink containing alcohol?: Never 3. How often do you have six or more drinks on one occasion?: Never Total Score: 0 Score Reviewed/Action Taken: Yes HUSSEIN-7 AMB Questionnaire HUSSEIN-7 Date HUSSEIN - 7 assessed: 02/27/23 Feeling nervous, anxious, or on edge: 0 = Not at all Not being able to stop or control worryin = Not at all Worrying too much about different things: 0 = Not at all Trouble relaxin = Not at all Being so restless that it is hard to sit still: 0 = Not at all Becoming easily annoyed or irritable: 0 = Not at all Feeling afraid as if something awful might happen: 0 = Not at all Total HUSSEIN-7 score (0-4 normal; 5-9 mild; 10-14 moderate; 15-21 severe): 0 Source: Developed by Drs. Thomas Brady, Zeny Boyce, Ray Mcgovern and colleagues, with an educational yaya from [employer]. Review of Systems Const Denies fatigue, Denies fever(s) and Denies headache(s) ENT Denies dysphagia, Denies dizziness, Denies otalgia, Denies headache(s), Reports hearing loss (in the left ear ), Denies neck pain and Denies sore throat Card Denies chest pain, Reports palpitations (occasionally, are mostly brief and associated with no symptoms) and Reports dyspnea on exertion (mild) Resp Denies chest congestion, Denies cough, Reports dyspnea on exertion (mild) and Denies wheezing GI Denies abdominal pain, Denies constipation, Denies dysphagia, Denies heartburn, Denies diarrhea, Denies nausea and Denies vomiting Denies difficulty voiding, Denies nocturia, Denies dysuria and Denies urinary urgency Musc Reports back pain (chronic, on and off) and Denies neck pain Neuro Denies dizziness and Denies headache(s) Psych Reports anxiety Endo Details: (+) hot flashes Denies fatigue and Reports palpitations (occasionally, are mostly brief and associated with no symptoms) Aller/Immun Denies wheezing Physical exam (Primary Care) Vital Signs: Last Vital Signs Pulse 97 02/27/23 13:23 BP 122/86 02/27/23 13:23 Pulse Ox 98 02/27/23 13:23 Oxygen Delivery Method Room Air 02/27/23 13:23 BMI result Body Mass Index 24.9 Tobacco/Smoking Status: Tobacco use Status Tobacco use date assessed 02/27/23 02/27/23 13:29 Patient Tobacco Use Status Current everyday Tobacco 02/27/23 13:29 Tobacco use type Cigarette 02/27/23 13:29 e-Cigarette/Vaping Use Never Used 02/27/23 13:29 PHQ-9: PHQ-9 Score PHQ-9: Total score 0 02/27/23 13:29 Depression Screening Interpretation: Negative Thrive Assessment: Date of Thrive Assessment Date Thrive assessed 02/27/23 02/27/23 13:29 Currently or been in a relationship where the following occur: no concerns reported Const General: no acute distress and alert HENMT Ears: TM's normal bilaterally and EAC's normal Throat: Yes posterior oropharynx normal and Yes tonsils normal (no TP congestion noted) Neck Neck: Yes no lymphadenopathy and Yes supple Resp Auscultation: clear to auscultation bilaterally, no rales and no wheezes Cardio Rate: regular rate Rhythm: regular rhythm Heart sounds: no murmurs GI Palpation (GI): Soft to palpation and nontender Auscultation: normal bowel sounds Back/Spine/Pelvis Thoracic/Lumbar Spine: lumbar spinal tenderness Extrem General: Yes no clubbing, cyanosis or edema Results Reviewed Results Reviewed: Laboratory Tests 02/25/23 02/25/23 02/25/23 09:15 09:15 09:15 WBC 9.6 Hgb 13.6 Hct 41.5 Plt Count 382 Sodium 142 Potassium 3.9 Creatinine 1.11 Estimated GFR 51 Fasting Glucose 130 H Hemoglobin A1c % Calcium 10.1 AST 16 ALT 17 Triglycerides 128 Cholesterol 176 LDL Cholesterol, Calc 114 HDL Cholesterol 37 25-OH Vitamin D Total 43.9 TSH 1.10 Ur Specific [place] 1.020 Urine Protein Negative Urine Glucose (UA) Negative Urine Blood Negative 02/25/23 09:15 WBC Hgb Hct Plt Count Sodium Potassium Creatinine Estimated GFR Fasting Glucose Hemoglobin A1c % 5.6 Calcium AST ALT Triglycerides Cholesterol LDL Cholesterol, Calc HDL Cholesterol 25-OH Vitamin D Total TSH Ur Specific [place] Urine Protein Urine Glucose (UA) Urine Blood Assessment and Plan Assessment & Plan (1) Pure hypercholesterolemia: Code(s): E78.00 - Pure hypercholesterolemia, unspecified Plan: Results of her labs done a couple of days ago reviewed and discussed with patient - advised that her lipids have now improved from previous Reinforced low cholesterol diet Continue Atorvastatin 10 mg QD Will recheck her labs in 4 months for follow-up (2) Palpitations: Code(s): R00.2 - Palpitations Plan: Stable with only occasional episodes that are mostly brief and asymptomatic - is on Propranolol Echocardiogram done a couple of years ago came back normal Follow up with Cardiology as scheduled -? has been advised that her palpitations were most likely triggered by her anxiety (3) Migraine: Code(s): G43.909 - Migraine, unspecified, not intractable, without status migrainosus Qualifiers: Migraine type: unspecified Status migrainosus presence: without status migrainosus Intractability: not intractable Qualified Code(s): G43.909 - Migraine, unspecified, not intractable, without status migrainosus Plan: Stable on prophylactic Rx - continue Propranolol 10 mg BID Follow-up with Neurology as scheduled (4) Lumbar degenerative disc disease: Code(s): M51.36 - Other intervertebral disc degeneration, lumbar region Plan: Reinforced activity and weight lifting restriction Continue Gabapentin 600 mg twice a day, Ibuprofen 800 mg TID PRN and Tizanidine 4 mg 3 times a day as needed Follow-up with [facility] as scheduled (5) Impaired fasting glucose: Code(s): R73.01 - Impaired fasting glucose Plan: HgbA1c was at 5.6% on her labs done a couple of days ago (was at 5.8% a few months ago) Reinforced low calorie diet /exercise as tolerated Will recheck her HgbA1c again in 4 months for follow up (6) Vitamin D deficiency: Code(s): E55.9 - Vitamin D deficiency, unspecified Plan: Continue Vitamin D3 2000 units QD (7) GERD without esophagitis: Code(s): K21.9 - Gastro-esophageal reflux disease without esophagitis Plan: Dietary restrictions reinforced (8) Mild obstructive sleep apnea: Code(s): G47.33 - Obstructive sleep apnea (adult) (pediatric) Plan: (+) mild GUSTAVO based on her sleep study done previously Patient will consider using CPAP device only if more convenient alternatives fail or symptoms worsen (9) Anxiety: Code(s): F41.9 - Anxiety disorder, unspecified Plan: Continue Lorazepam 0.5 mg 2 to 3 times a day as needed - Rx refilled (10) Depression: Code(s): F32.9 - Major depressive disorder, single episode, unspecified Qualifiers: Depression Type: unspecified Qualified Code(s): F32.9 - Major depressive disorder, single episode, unspecified Plan: Continue Paroxetine 30 mg once a day Follow-up with Psychiatry as scheduled (11) Smoker: Code(s): F17.200 - Nicotine dependence, unspecified, uncomplicated Plan: Counseled again to continue attempts at smoking cessation Per request, will send in Rx for Albuterol inhaler to use PRN Plan Follow up in 4 months Orders: Orders Comprehensive [place]. Panel Fast 4 Months E78.00 - Pure hypercholesterolemia, unspecified Hemoglobin A1c 4 Months R73.01 - Impaired fasting glucose Lipid Panel 4 Months E78.00 - Pure hypercholesterolemia, unspecified TSH reflex Free T4 4 Months E78.00 - Pure hypercholesterolemia, unspecified UA CC w/rflx Micro + Cult 4 Months R30.0 - Dysuria Medications: New albuterol sulfate 90 mcg/actuation (Ventolin HFA) 2 puffs inhalation Q6H 30 days PRN 8.5 grams 1RF shortness of breath or wheezing Coding Level of Care Code Est Pt Level 4 (65093) Diagnoses Pure hypercholesterolemia E78.00 Palpitations R00.2 Migraine G43.909 Migraine type: unspecified Status migrainosus presence: without status migrainosus Intractability: not intractable Lumbar degenerative disc disease M51.36 Impaired fasting glucose R73.01 Vitamin D deficiency E55.9 GERD without esophagitis K21.9 Mild obstructive sleep apnea G47.33 Anxiety F41.9 Depression F32.9 Depression Type: unspecified Smoker F17.200
== END 2023-02-27 13:59 | disposition home or self-care (01) ==
PROVIDERS: PCP Internal Medicine; Visit Provider Internal Medicine
DX: G43.909 Migraine, unspecified, not intractable, without status migrainosus (principal); F41.9 Anxiety disorder, unspecified; F17.200 Nicotine dependence, unspecified, uncomplicated; E55.9 Vitamin D deficiency, unspecified; K21.9 Gastro-esophageal reflux disease without esophagitis; E78.00 Pure hypercholesterolemia, unspecified; R00.2 Palpitations; F32.9 Major depressive disorder, single episode, unspecified; M51.36 Other intervertebral disc degeneration, lumbar region; R73.01 Impaired fasting glucose; G47.33 Obstructive sleep apnea (adult) (pediatric)
CPT/HCPCS: 99214

== ENCOUNTER 2023-07-03 08:09 | Outpatient (REF) | payer BC, SELFPAY ==
[2023-07-03 10:55] LABS: Estimated Average Glucose 123 mg/dL; Hemoglobin A1c % 5.9 % (<6.0)
[2023-07-03 10:57] LABS: Appearance Urine Clear; Color Urine Yellow; Glucose Urine UA Negative (Negative); Leukocyte Esterase Urine Moderate (2+) (Negative); Nitrite Urine Negative (Negative); Specific Gravity - Urine 1.015 (1.005-1.025); UMIC TRIGGER UACC YES; Urine Blood Trace (Negative); Urine Ketones Negative (Negative); Urine Protein Negative (Neg-Trace)
[2023-07-03 11:03] LABS: Bacteria Urine Trace (None Seen); Hyaline Casts Urine 0-2 /LPF (0-2); UACC Culture Trigger YES
[2023-07-03 11:04] LABS: Alanine Aminotransferase 34 U/L (0-31); Albumin Level 4.4 g/dL (3.5-5.0); Alkaline Phosphatase 132 U/L (39-117); Anion Gap 13 (12-20); Aspartate Amino Transferase 27 U/L (5-31); Bilirubin Total 0.6 mg/dL (0.0-1.0); Blood Urea Nitrogen 16 mg/dL (9-16); Calcium 9.5 mg/dL (8.4-10.2); Carbon Dioxide 27 mmol/L (22-29); Chloride 107 mmol/L (96-108); Cholesterol 222 mg/dL (<200); Estimated Glomerular Filt Rate 56; Glucose Fasting 108 mg/dL (60-99); HDL Cholesterol 41 mg/dL (>40); LDL Cholesterol Calculated 145 mg/dL (<100); Potassium 4.1 mmol/L (3.3-5.1); Sodium 143 mmol/L (135-145); Total Protein 7.4 g/dL (6.5-8.0); Triglycerides 181 mg/dL (<150)
[2023-07-03 11:10] LABS: TSH reflex Free T4 1.78 uIU/mL (0.32-4.0)
== END 2023-07-03 08:10 | disposition home or self-care (01) ==
LOC: HO.10HDL 08:09
PROVIDERS: Visit Provider Internal Medicine
DX: E78.00 Pure hypercholesterolemia, unspecified (principal); R73.01 Impaired fasting glucose; R30.0 Dysuria
CPT/HCPCS: 36415; 80053; 80061; 81001; 83036; 84443; 87086

== ENCOUNTER 2023-07-09 11:42 | Outpatient (AMB) | payer BC, SELFPAY ==
[2023-07-09 11:45] VITALS: BP 130/80; PULSE 108; O2SAT 98; BMI 25.5
--- NOTE | 2023-07-09 11:45 | MHC.PC.OV ---
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 Required: No Accompanied by: Self / Same As Patient Allergies No Known Allergies [No Known Allergies*] Allergy (Verified 07/09/23 12:43) Medication List - Last Reconciled 07/09/23 by Immanuel Lin MD albuterol sulfate 90 mcg/actuation (Ventolin HFA) 2 puffs inhalation Q6H PRN 30 days atorvastatin 10 mg PO DAILY 90 days cholecalciferol (vitamin D3) 50 mcg PO DAILY fluticasone propionate 50 mcg/actuation 2 sprays intranasal DAILY gabapentin 600 mg PO BID ibuprofen 800 mg PO TID PRN 30 days Lactobacillus acidophilus (Probiotic Acidophilus) 100 mmu cells PO DAILY lorazepam 0.5 mg PO TID PRN 30 days Tobacco use date assessed: 02/27/23 Dental Screening Dental Screen Date: 07/09/23 Did you have a dental visit in the last 12 months?: No Did you have a dental problem in the last 6 months where you did not have access to dental care?: No Was dental information given to patient?: No HPI 4 month f/u HPI Details Patient comes in today for her follow up visit States that she has been sick for a few weeks recently, with increased migraine headaches, malaise, fatigue and recurrent nausea but no vomiting or diarrhea Relates that she had several COVID tests done over the past few weeks and they have all came back negative Admits that she did not take a few of her regular medications, including her cholesterol Rx, for the 2 to 3 weeks when she was sick States that she is currently feeling a lot better but still has some residual pain and discomfort in her left ear She denies any fever or sore throat; denies any headaches or dizziness Denies any chest pains, no shortness of breath States that she has no symptoms of nausea or vomiting currently; no abdominal pain and no change in bowel habits noted Needs a few of her Rx refilled Had her follow-up labs done last week - to discuss her results Would also like to get her flu shot today [facility] Medical History Depression Anxiety Periodic limb movement disorder Mild obstructive sleep apnea GERD without esophagitis Vitamin D deficiency Palpitations Impaired fasting glucose Migraine Lumbar degenerative disc disease Pure hypercholesterolemia Surgical History Hx laparoscopic cholecystectomy (10/22/20) No pertinent past surgical history Family History Father Cancer Mother CVD (cardiovascular disease) Social History Household Members: Family Housing: House Do you presently have visiting nurse or other home services: No Alcohol intake: never Patient Tobacco Use Status: Current everyday Tobacco user Tobacco use type: Cigarette Cigarette Packs Per Day: 0.5 Cigarettes Per Day: 10 Years Smoked: 15 e-Cigarette/Vaping Use: Never Used Second Hand Smoke Exposure: No service: No Current occupational status: unemployed Sexual orientation: Straight/Heterosexual Gender identity: Female Cognitive needs: No Hearing needs: No Vision needs: Yes Questionnaire Thrive Questionnaire Date Thrive assessed: 02/27/23 HUSSEIN-7 AMB Questionnaire HUSSEIN-7 Date HUSSEIN - 7 assessed: 02/27/23 Source: Developed by Drs. Thomas Brady, Zeny Boyce, Ray Mcgovern and colleagues, with an educational yaya from [employer]. Review of Systems Const Denies chills, Denies fatigue, Denies fever(s) and Denies headache(s) ENT Denies dysphagia, Denies dizziness, Reports otalgia (in the left ear), Denies headache(s), Reports hearing loss (in the left ear ), Denies nasal congestion, Denies neck pain, Denies odynophagia and Denies sore throat Card Denies chest pain, Reports palpitations (occasionally, are mostly brief and associated with no symptoms) and Denies dyspnea Resp Denies chest congestion, Denies cough, Denies dyspnea and Denies wheezing GI Denies abdominal pain, Denies constipation, Denies dysphagia, Denies heartburn, Denies diarrhea, Denies nausea, Denies odynophagia and Denies vomiting Denies difficulty voiding, Denies nocturia, Denies dysuria and Denies urinary urgency Musc Reports back pain (chronic, on and off) and Denies neck pain Skin/Breast Denies rash Neuro Denies dizziness and Denies headache(s) Psych Reports anxiety Endo Details: (+) hot flashes Denies fatigue and Reports palpitations (occasionally, are mostly brief and associated with no symptoms) Aller/Immun Denies wheezing Physical exam (Primary Care) Vital Signs: Last Vital Signs Pulse 108 H 07/09/23 11:45 BP 130/80 07/09/23 11:45 Pulse Ox 98 07/09/23 11:45 Oxygen Delivery Method Room Air 07/09/23 11:45 BMI result Body Mass Index 25.5 Tobacco/Smoking Status: Tobacco use Status Tobacco use date assessed 02/27/23 07/09/23 11:46 Patient Tobacco Use Status Current everyday Tobacco 07/09/23 11:46 Tobacco use type Cigarette 07/09/23 11:46 e-Cigarette/Vaping Use Never Used 07/09/23 11:46 Thrive Assessment: Date of Thrive Assessment Date Thrive assessed 02/27/23 07/09/23 11:46 Const General: no acute distress and alert HENMT Ears: TM normal on the left, Abnormal EAC present EAC tenderness on the left and unable to visualize TM on the right Throat: Yes posterior oropharynx normal and Yes tonsils normal (no TP congestion noted) Neck Neck: Yes no lymphadenopathy and Yes supple Resp Auscultation: no crackles, no rales, rhonchi Negative for lower bilaterally and no wheezes Cardio Rate: regular rate Rhythm: regular rhythm Heart sounds: no murmurs GI Palpation (GI): Soft to palpation and nontender Auscultation: normal bowel sounds Back/Spine/Pelvis Thoracic/Lumbar Spine: lumbar spinal tenderness Skin Rashes: no rashes Extrem General: Yes no clubbing, cyanosis or edema Office Procedures Flu Questionnaire Does the patient have a severe egg allergy?: No Does the patient have severe life threatening allergies?: No Does the patient have a fever or illness today?: No Has the patient ever had Guillain-[place] Syndrome?: No Has the patient ever had any past reaction to a flu shot?: No Immunizations flu vacc [id number] 6mos up(PF) 60 mcg(15 mcgx4)/0.5 mL IM syringe Performing Provider: Immanuel Lin MD Performing Location: [facility] Administered by: Josep Adler RMA on 07/09/23 12:05 Dose Route Admin Location Dispensed Lot Number Expiration Date NDC Penetration Tester 0.5 mL IM Left Deltoid 0.5 mL [id number] 01/10/24 22560-516-80 Funz[employer] VIS Given Date VIS Provided VIS Publication Date 07/09/23 Single Vaccine 21 Eligibility Eligibility Date Funding Source Not [facility] [place] Eligible 07/09/23 Private Results Reviewed Results Reviewed: Laboratory Tests 07/03/23 08:15 Sodium 143 Potassium 4.1 Creatinine 1.03 Estimated GFR 56 Fasting Glucose 108 H Hemoglobin A1c % 5.9 Calcium 9.5 AST 27 ALT 34 H Triglycerides 181 H Cholesterol 222 H LDL Cholesterol, Calc 145 H HDL Cholesterol 41 TSH 1.78 Ur Specific [place] 1.015 Urine Protein Negative Urine Glucose (UA) Negative Urine Blood Trace H Assessment and Plan Assessment & Plan (1) Pure hypercholesterolemia: Code(s): E78.00 - Pure hypercholesterolemia, unspecified Plan: Results of her labs done last week reviewed and discussed with patient - advised that her lipids have increased significantly from previous as she did not take her medications for a few weeks when she was sick recently Reinforced low cholesterol diet States that she is now back on her Atorvastatin 10 mg QD Will recheck her labs and fasting lipids in 4 months for follow-up (2) Palpitations: Code(s): R00.2 - Palpitations Plan: Stable, with only occasional episodes that are mostly brief and asymptomatic - is presently on Propranolol Echocardiogram done a couple of years ago came back normal Follow up with Cardiology as scheduled -? recalls being advised that her palpitations were most likely triggered by anxiety (3) Migraine: Code(s): G43.909 - Migraine, unspecified, not intractable, without status migrainosus Qualifiers: Intractability: not intractable Migraine type: unspecified Status migrainosus presence: without status migrainosus Qualified Code(s): G43.909 - Migraine, unspecified, not intractable, without status migrainosus Plan: Stable on prophylactic Rx - continue Propranolol 10 mg BID Follow-up with Neurology as scheduled (4) Impaired fasting glucose: Code(s): R73.01 - Impaired fasting glucose Plan: HgbA1c was at 5.9% on her labs done last week (was at 5.6% a few months ago) Reinforced low calorie diet /exercise as tolerated Will recheck her HgbA1c again in 4 months for follow up (5) Lumbar degenerative disc disease: Code(s): M51.36 - Other intervertebral disc degeneration, lumbar region Plan: Reinforced activity and weight lifting restriction Continue Gabapentin 600 mg BID, Ibuprofen 800 mg TID PRN and Tizanidine 4 mg TID as needed Follow-up with [facility] as scheduled (6) Vitamin D deficiency: Code(s): E55.9 - Vitamin D deficiency, unspecified Plan: Continue Vitamin D3 2000 units QD (7) GERD without esophagitis: Code(s): K21.9 - Gastro-esophageal reflux disease without esophagitis Plan: Dietary restrictions reinforced (8) Mild obstructive sleep apnea: Code(s): G47.33 - Obstructive sleep apnea (adult) (pediatric) Plan: r (+) mild GUSTAVO based on her sleep study done previously Patient will consider using CPAP device only if more convenient alternatives fail or hesymptoms worsen (9) Otitis of left ear: Code(s): H66.92 - Otitis media, unspecified, left ear Plan: Will start her empirically on Augmentin 875 mg BID x 7 days Advised that her right ear is almost completely impacted with cerumen and she should try using her previous Debrox ear drops again as instructed (10) Anxiety: Code(s): F41.9 - Anxiety disorder, unspecified Plan: Continue Lorazepam 0.5 mg 2 to 3 times a day as needed - Rx refilled (11) Depression: Code(s): F32.9 - Major depressive disorder, single episode, unspecified Qualifiers: Depression Type: unspecified Qualified Code(s): F32.9 - Major depressive disorder, single episode, unspecified Plan: Continue Paroxetine 30 mg once a day Follow-up with Psychiatry as scheduled (12) Smoker: Code(s): F17.200 - Nicotine dependence, unspecified, uncomplicated Plan: Counseled again to continue attempts at smoking cessation Plan Flu vaccine given today Follow up in 4 months Orders: Orders Complete Blood Count Auto Diff 4 Months I10 - Essential (primary) hypertension TSH reflex Free T4 4 Months E78.00 - Pure hypercholesterolemia, unspecified UA CC w/rflx Micro + Cult 4 Months R30.0 - Dysuria Vitamin D 25-OH Total 4 Months E55.9 - Vitamin D deficiency, unspecified Influenza [id number] Immunization 07/09/23 Z23 - Encounter for immunization Lipid Panel 4 Months E78.00 - Pure hypercholesterolemia, unspecified Comprehensive Aromas. Panel Fast 4 Months E78.00 - Pure hypercholesterolemia, unspecified Medications: New amoxicillin-pot clavulanate 875-125 mg 1 tab PO BID 7 days 14 tabs 0RF Refilled atorvastatin 10 mg PO DAILY 90 days 90 tabs 1RF ibuprofen 800 mg PO TID 30 days PRN 90 tabs 3RF fever or pain lorazepam 0.5 mg PO TID 30 days PRN 90 tabs 0RF anxiety Coding Level of Care Code Est Pt Level 4 (19111) Diagnoses Pure hypercholesterolemia E78.00 Palpitations R00.2 Migraine without status migrainosus, not intractable, unspecified migraine type G43.909 Intractability: not intractable Migraine type: unspecified Status migrainosus presence: without status migrainosus Impaired fasting glucose R73.01 Lumbar degenerative disc disease M51.36 Vitamin D deficiency E55.9 GERD without esophagitis K21.9 Mild obstructive sleep apnea G47.33 Otitis of left ear H66.92 Anxiety F41.9 Depression, unspecified depression type F32.9 Depression Type: unspecified Smoker F17.200
== END 2023-07-09 12:52 | disposition home or self-care (01) ==
PROVIDERS: PCP Internal Medicine; Visit Provider Internal Medicine
DX: Z23 Encounter for immunization (principal)
CPT/HCPCS: 90471; 90686; 99214

== ENCOUNTER 2023-08-01 09:07 | Outpatient (AMB) | payer BC, SELFPAY ==
[2023-08-01 09:21] VITALS: BP 132/80; PULSE 117; TEMP 36.6; O2SAT 97; BMI 25.4
--- NOTE | 2023-08-01 09:21 | AM.OFFWIN_ITS ---
Intake Vital Signs 08/01/23 09:21 Height 5 ft 2 in Weight 139 lb BMI 25.4 BP 132/80 Blood Pressure Location Lt brachial Position Sitting Pulse 117 H Pulse Source Pulse Oximeter Temp 97.8 F Temp Source Temporal Artery Scan Pulse Oximetry (%) 97 Intake Visit Reasons: EST/uti(lobby) Intake Note: pt is here for c.o possible uti Patient Tobacco Use Status: Current everyday Tobacco user Allergies No Known Allergies [No Known Allergies*] Allergy (Verified 08/01/23 10:20) Medication List - Last Reconciled 08/01/23 by Preethi Hu CNP albuterol sulfate 90 mcg/actuation (Ventolin HFA) 2 puffs inhalation Q6H PRN 30 days atorvastatin 10 mg PO DAILY 90 days cholecalciferol (vitamin D3) 50 mcg PO DAILY fluticasone propionate 50 mcg/actuation 2 sprays intranasal DAILY gabapentin 600 mg PO BID ibuprofen 800 mg PO TID PRN 30 days Lactobacillus acidophilus (Probiotic Acidophilus) 100 mmu cells PO DAILY lorazepam 0.5 mg PO TID PRN 30 days Do you need a note to return to daycare/school/sports/work: No HPI HPI Comments History of Present Illness Details 52-year-old female [facility] [place] complaining of symptoms of lower back pain, urinary frequency, dysuria, and abdominal pressure which started Thursday. She denies fever, chills, general body aches, nausea, vomiting or hematuria. [facility] Medical History (Updated 08/01/23 @ 14:36 by Preethi Hu CNP) Urinary tract infection Depression Anxiety Periodic limb movement disorder Mild obstructive sleep apnea GERD without esophagitis Vitamin D deficiency Palpitations Impaired fasting glucose Migraine Lumbar degenerative disc disease Pure hypercholesterolemia Surgical History Hx laparoscopic cholecystectomy (10/22/20) No pertinent past surgical history Family History Father Cancer Mother CVD (cardiovascular disease) Social History Household Members: Family Housing: House Do you presently have visiting nurse or other home services: No Alcohol intake: never Patient Tobacco Use Status: Current everyday Tobacco user Tobacco use type: Cigarette Cigarette Packs Per Day: 0.5 Cigarettes Per Day: 10 Years Smoked: 15 e-Cigarette/Vaping Use: Never Used Second Hand Smoke Exposure: No service: No Current occupational status: unemployed Sexual orientation: Straight/Heterosexual Gender identity: Female Cognitive needs: No Hearing needs: No Vision needs: Yes Review of Systems Const All systems reviewed & are unremarkable except as noted in HPI and below Physical Exam Vital Signs: Last Vital Signs Temp 97.8 F 08/01/23 09:21 Pulse 117 H 08/01/23 09:21 BP 132/80 08/01/23 09:21 Pulse Ox 97 08/01/23 09:21 BMI result Body Mass Index 25.4 Const General: healthy appearing and no acute distress Nutritional Appearance: well nourished Orientation/consciousness: patient oriented x3 Limitations: no limitations HEENT Head: Yes normal to inspection, Yes normocephalic and Yes atraumatic Ears: hearing grossly normal bilaterally and TM's normal bilaterally Eyes General: appearance normal, both eyes and all related structures Neck Neck: Yes normal visual inspection, Yes full ROM, Yes no lymphadenopathy and Yes supple Chest Chest palpation & inspection: normal inspection of the chest Resp Effort & Inspection: normal respiratory effort, no cough, no respiratory distress and not tachypneic Auscultation: clear to auscultation bilaterally, no rhonchi and no wheezes Cardio Rate: regular rate Rhythm: regular rhythm Heart sounds: S1 normal heart sound present and S2 normal heart sound present Peripheral pulses: Peripheral pulses 2+ throughout GI Palpation (GI): Soft to palpation and nontender Auscultation: normal bowel sounds General: Yes no CVA tenderness Back/Spine/Pelvis Back: no CVA tenderness Neuro General: patient oriented x3, gait normal and moves all extremities Psych Appearance: grossly normal Mental Status: mental status grossly normal Affect: normal affect Results AMB Urinalysis, Automated UA Leukoctes 0 Cooper/uL Last Edit by Black Bailey CMA on 08/01/23 09:30 UA Nitrite Negative Last Edit by Black Bailey CMA on 08/01/23 09:30 UA Urobilinogen 0.2 mg/dL Last Edit by Black Bailey CMA on 08/01/23 09 :30 UA Protein 0 mg/dL Last Edit by Black Bailey CMA on 08/01/23 09:30 UA pH 6.0 Last Edit by Black Bailey CMA on 08/01/23 09:30 UA Blood 10 Dmitry/uL Last Edit by Black Bailey CMA on 08/01/23 09:30 UA Specific [place] 1.015 Last Edit by Black Bailey CMA on 08/01/23 09:30 UA Ketone Negative Last Edit by Black Bailey CMA on 08/01/23 09:30 UA Bilirubin 0 mg/dL Last Edit by Black Bailey CMA on 08/01/23 09:30 UA Glucose 0 mg/dL Last Edit by Black Bailey CMA on 08/01/23 09:30 Results Reviewed Results Reviewed: Laboratory Last Values Urine pH (Auto) 6.0 08/01/23 09:29 Specific [place] (Auto) 1.015 08/01/23 09:29 Urine Protein (Auto) 0 mg/dL 08/01/23 09:29 Glucose (UA)(Auto) 0 mg/dL 08/01/23 09:29 Urine Ketones (Auto) Negative 08/01/23 09:29 Urine Blood (Auto) 10 Dmitry/uL 08/01/23 09:29 Urine Nitrite (Auto) Negative 08/01/23 09:29 Urine Bilirubin (Auto) 0 mg/dL 08/01/23 09:29 Urine Urobilinogen (Auto) 0.2 mg/dL 08/01/23 09:29 Leukocyte Esterase (Auto) 0 Cooper/uL 08/01/23 09:29 Assessment & Plan Assessment & Plan (1) Urinary tract infection: Code(s): N39.0 - Urinary tract infection, site not specified Qualifiers: Hematuria presence: without hematuria Urinary tract infection type: acute cystitis Qualified Code(s): N30.00 - Acute cystitis without hematuria Plan: 52-year-old female seen today in walk-in clinic w/ symptoms of lower back pain, urinary frequency, dysuria, and abdominal pressure, and negative hematuria. Urinalysis negative. Will treat empirically with Macrobid 100 mg po bid, and Pyridium for urinary frequency and irritation 100 mg tid x 2 days. Encouraged to drink plenty of fluid, and take abx with food to prevent GI upset. (2) Dysuria: Code(s): R30.0 - Dysuria Plan: Will treat empirically with Macrobid 100 mg po bid, and Pyridium for urinary frequency and irritation 100 mg tid x 2 days. Encouraged to drink plenty of fluid, and take abx with food to prevent GI upset. Return to clinic with any worsening or unresolved symptoms Orders: Orders AMB Urinalysis Automated Today Z13.9 - Encounter for screening, unspecified Medications: New nitrofurantoin monohyd/m-cryst 100 mg (Macrobid) must administer with a meal/food 100 mg PO BID 14 caps 0RF N39.0 - Urinary tract infection, site not specified phenazopyridine (Pyridium) 100 mg PO TID PRN 6 tabs 0RF pain R30.0 - Dysuria Coding Level of Care Code Est Pt Level 3 (43607) Diagnoses Acute cystitis without hematuria N30.00 Hematuria presence: without hematuria Urinary tract infection type: acute cystitis Dysuria R30.0
== END 2023-08-01 10:31 | disposition home or self-care (01) ==
PROVIDERS: PCP Internal Medicine; Visit Provider Nurse Practitioner Acute Care
DX: N30.00 Acute cystitis without hematuria (principal); R30.0 Dysuria
CPT/HCPCS: 81003; 99213

== ENCOUNTER 2023-12-19 09:04 | Outpatient (AMB) | payer BC, SELFPAY ==
[2023-12-19 09:07] VITALS: BP 140/80; PULSE 82; TEMP 36.9; O2SAT 98
--- NOTE | 2023-12-19 09:07 | MHC.OFFWIV ---
Intake Vital Signs 12/19/23 09:07 Height 5 ft 2 in Intake Visit Reasons: EP ?UTI Intake Note: pt is here for possible uti Patient Tobacco Use Status: Current everyday Tobacco user Allergies No Known Allergies [No Known Allergies*] Allergy (Verified 12/19/23 09:07) Do you need a note to return to daycare/school/sports/work: No PFSH Medical History (Updated 08/01/23 @ 14:36 by Preethi Hu CNP) Urinary tract infection Depression Anxiety Periodic limb movement disorder Mild obstructive sleep apnea GERD without esophagitis Vitamin D deficiency Palpitations Impaired fasting glucose Migraine Lumbar degenerative disc disease Pure hypercholesterolemia Surgical History Hx laparoscopic cholecystectomy (10/22/20) No pertinent past surgical history Family History Father Cancer Mother CVD (cardiovascular disease) Social History Household Members: Family Housing: House Do you presently have visiting nurse or other home services: No Alcohol intake: never Patient Tobacco Use Status: Current everyday Tobacco user Tobacco use type: Cigarette Cigarette Packs Per Day: 0.5 Cigarettes Per Day: 10 Years Smoked: 15 e-Cigarette/Vaping Use: Never Used Second Hand Smoke Exposure: No service: No Current occupational status: unemployed Sexual orientation: Straight/Heterosexual Gender identity: Female Cognitive needs: No Hearing needs: No Vision needs: Yes Coding
--- NOTE | 2023-12-19 09:09 | AM.OFFWIN_ITS ---
Intake Vital Signs 12/19/23 09:07 Height 5 ft 2 in BP 140/80 H Blood Pressure Location Rt brachial Position Sitting Pulse 82 Pulse Source Pulse Oximeter Temp 98.4 F Temp Source Oral Pulse Oximetry (%) 98 Oxygen Delivery Method Room Air Intake Visit Reasons: EP ?UTI Intake Note: pt is here for possible uti Patient Tobacco Use Status: Current everyday Tobacco user Allergies No Known Allergies [No Known Allergies*] Allergy (Verified 12/19/23 09:07) Do you need a note to return to daycare/school/sports/work: No HPI EP ?UTI HPI Details Patient is a 53-year-old female comes to the walk-in clinic complaining of dysuria and polyuria, with incomplete emptying. She reports low back and suprapubic tenderness. No nausea vomiting or diarrhea, weakness or dizziness, myalgias or malaise, fever or chills, chest pain or shortness of breath, upper back pain, or other significant associated symptoms. She reports having had a f ew urinary tract infections in the past and reports that symptoms appear consistent with them. She has no history of resistant urinary tract infections. [facility] Medical History Urinary tract infection Depression Anxiety Periodic limb movement disorder Mild obstructive sleep apnea GERD without esophagitis Vitamin D deficiency Palpitations Impaired fasting glucose Migraine Lumbar degenerative disc disease Pure hypercholesterolemia Surgical History Hx laparoscopic cholecystectomy (10/22/20) No pertinent past surgical history Family History Father Cancer Mother CVD (cardiovascular disease) Social History Household Members: Family Housing: House Do you presently have visiting nurse or other home services: No Alcohol intake: never Patient Tobacco Use Status: Current everyday Tobacco user Tobacco use type: Cigarette Cigarette Packs Per Day: 0.5 Cigarettes Per Day: 10 Years Smoked: 15 e-Cigarette/Vaping Use: Never Used Second Hand Smoke Exposure: No service: No Current occupational status: unemployed Sexual orientation: Straight/Heterosexual Gender identity: Female Cognitive needs: No Hearing needs: No Vision needs: Yes Review of Systems Const All systems reviewed & are unremarkable except as noted in HPI and below Physical Exam Vital Signs: Last Vital Signs Temp 98.4 F 12/19/23 09:07 Pulse 82 12/19/23 09:07 BP 140/80 H 12/19/23 09:07 Pulse Ox 98 12/19/23 09:07 Oxygen Delivery Method Room Air 12/19/23 09:07 Const General: cooperative, healthy appearing, comfortable, no acute distress, alert, awake, Physically active and well groomed; No anxious, diaphoretic, ill appearing, intoxicated appearing, poor hygiene or tired appearing Nutritional Appearance: average body habitus Limitations: no limitations Resp Effort & Inspection: normal respiratory effort Cardio Rate: regular rate GI Palpation (GI): Soft to palpation, not firm, Tenderness to palpation present (GI) suprapubicly; not at McBurney's point and Rivera's sign negative, no guarding, not rigid and No hepatosplenomegaly present General: Yes no CVA tenderness Back/Spine/Pelvis Back: no CVA tenderness Skin Other: Good color, warm and dry Psych Appearance: grossly normal Mental Status: mental status grossly normal Speech and movement: Normal speech and movement present Affect: normal affect Attitude: cooperative Thought process: Normal thought process present Insight: Good insight present (Psych) Judgement: Good judgement present (Psych) Results AMB Urinalysis, Automated UA Leukoctes 0 Cooper/uL Last Edit by Black Bailey CMA on 12/19/23 09:23 UA Nitrite Negative Last Edit by Black Bailey CMA on 12/19/23 09:23 UA Urobilinogen 0.2 mg/dL Last Edit by Black Bailey CMA on 12/19/23 09 :23 UA Protein 0 mg/dL Last Edit by Black Bailey CMA on 12/19/23 09:23 UA pH 6.0 Last Edit by Black Bailey CMA on 12/19/23 09:23 UA Blood 25 Dmitry/uL Last Edit by Black Bailey CMA on 12/19/23 09:23 UA Specific [place] 1.025 Last Edit by Black Bailey CMA on 12/19/23 09:23 UA Ketone Negative Last Edit by Black Bailey CMA on 06/08/24 09:23 UA Bilirubin 0 mg/dL Last Edit by Black Bailey CMA on 12/19/23 09:23 UA Glucose 0 mg/dL Last Edit by Black Bailey CMA on 12/19/23 09:23 Results Reviewed Results Reviewed: Laboratory Last Values Urine pH (Auto) 6.0 12/19/23 09:22 Specific [place] (Auto) 1.025 12/19/23 09:22 Urine Protein (Auto) 0 mg/dL 12/19/23 09:22 Glucose (UA)(Auto) 0 mg/dL 12/19/23 09:22 Urine Ketones (Auto) Negative 12/19/23 09:22 Urine Blood (Auto) 25 Dmitry/uL 12/19/23 09:22 Urine Nitrite (Auto) Negative 12/19/23 09:22 Urine Bilirubin (Auto) 0 mg/dL 12/19/23 09:22 Urine Urobilinogen (Auto) 0.2 mg/dL 12/19/23 09:22 Leukocyte Esterase (Auto) 0 Cooper/uL 12/19/23 09:22 Only positive for trace hematuria Assessment & Plan Assessment & Plan (1) Urinary tract infection: Code(s): N39.0 - Urinary tract infection, site not specified Qualifiers: Hematuria presence: without hematuria Urinary tract infection type: acute cystitis Qualified Code(s): N30.00 - Acute cystitis without hematuria Plan: Patient is a 53-year-old female with dysuria and urinary frequency with incomplete emptying. Her urine dip today is only remarkable for microscopic hematuria, however due to her symptoms we will write her for Macrobid, and she does have an appointment with Ob mid next week that she can follow-up with. She knows to continue adequate fluid intake, and she can monitor symptoms and seek provider evaluation in the meantime if symptoms persist or worsen. Orders: Orders AMB Urinalysis Automated Today Z13.9 - Encounter for screening, unspecified Medications: New nitrofurantoin monohyd/m-cryst 100 mg (Macrobid) must administer with a meal/food 100 mg PO Q12H 10 caps 0RF 5 days N39.0 - Urinary tract infection, site not specified Coding Level of Care Code Est Pt Level 4 (97001) Diagnoses Acute cystitis without hematuria N30.00 Hematuria presence: without hematuria Urinary tract infection type: acute cystitis
== END 2023-12-19 11:23 | disposition home or self-care (01) ==
PROVIDERS: PCP Internal Medicine; Visit Provider Physician Assistant Medical
DX: N30.00 Acute cystitis without hematuria (principal)
CPT/HCPCS: 81003; 99214

== ENCOUNTER 2023-12-23 13:03 | Outpatient (REF) | payer BC, SELFPAY ==
[2023-12-23 18:06] LABS: Bacterial Vaginosis PCR NEGATIVE (Negative); Candida Group PCR NOT DETECTED (Not Detect); Candida glab krusei PCR NOT DETECTED (Not Detect); Trichomonas vaginalis PCR NOT DETECTED (Not Detect)
== END 2023-12-23 13:04 | disposition home or self-care (01) ==
LOC: HO.LNP 13:03
PROVIDERS: PCP Internal Medicine; Visit Provider Advanced Practice Midwife
DX: N94.89 Other specified conditions associated with female genital organs and menstrual cycle (principal)
CPT/HCPCS: 0352U

== ENCOUNTER 2023-12-23 13:03 | Outpatient (AMB) | payer BC, SELFPAY ==
[2023-12-23 13:11] VITALS: BP 152/82; BMI 25.8
--- NOTE | 2023-12-23 13:11 | A.OFFVIS_ITS ---
Vital Signs 12/23/23 13:11 Height 5 ft 2 in Weight 141 lb BMI 25.8 BP 152/82 H Intake Visit Reasons: MINI SHIFTER annual exam Intake Note: She thinks she has BV again. 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 She is doing well with concerns: burning on external vulvar. Attempting to eat a healthy diet with calcium and vitamin D and stays active with exercise. Currently not sexually active with her . Last pap smear; 2022. Last mammogram; 2021. Plans Cologard. Denies any family history of breast, ovarian or colon cancer. Plans to quit tobacco use, reducing amounts to 2 two packs a week. [facility] Medical History Urinary tract infection Depression Anxiety Periodic limb movement disorder Mild obstructive sleep apnea GERD without esophagitis Vitamin D deficiency Palpitations Impaired fasting glucose Migraine Lumbar degenerative disc disease Pure hypercholesterolemia Surgical History Hx laparoscopic cholecystectomy (10/22/20) No pertinent past surgical history Family History Father Cancer Mother CVD (cardiovascular disease) Social History (Updated 12/23/23 @ 13:16 by RON Casanova) Household Members: Family Housing: House Do you presently have visiting nurse or other home services: No Alcohol intake: never Patient Tobacco Use Status: Current everyday Tobacco user Tobacco use type: Cigarette Cigarette Packs Per Day: 0.5 Cigarettes Per Day: 7 Years Smoked: 15 e-Cigarette/Vaping Use: Never Used Second Hand Smoke Exposure: No Patient : No service: No Current occupational status: unemployed Sexual orientation: Straight/Heterosexual Gender identity: Female Cognitive needs: No Hearing needs: No Vision needs: Yes Female Reproductive History Menstrual Age of Menarche: 10 control method: none and permanent sterilization Permanent Sterilization: Vasectomy Total pregnancies: 6 Full term: 5 Number of Living Children: 5 Ab spontaneous: 1 Date of last pap smear: 12/22/22 (negative) Date of Mammogram: 03/21/22 Review of Systems Const All systems reviewed & are unremarkable except as noted in HPI and below Reports as per HPI Eyes Reports no additional complaints ENT Reports no additional complaints Card Reports no additional complaints Resp Reports no additional complaints GI Reports as per HPI and Reports no additional complaints Reports as per HPI Musc Reports no additional complaints Skin/Breast Reports as per HPI Neuro Reports no additional complaints Psych Reports no additional complaints Endo Reports no additional complaints Ronaldo/Lymph Reports no additional complaints Aller/Immun Reports no additional complaints Physical Exam Vital Signs: Last Vital Signs BP 152/82 H 12/23/23 13:11 BMI result Body Mass Index 25.8 Const General: cooperative, healthy appearing, no acute distress, well developed and alert Orientation/consciousness: patient oriented x3 HEENT Head: Yes normal to inspection Eyes General: appearance normal, both eyes and all related structures Neck Neck: Yes normal visual inspection Thyroid: Thyroid normal Chest Chest palpation & inspection: normal inspection of the chest and other (no p uckering, dimpling, peau de orange, retraction, discharge, masses) Breast/axilla inspection: normal inspection of the breasts Breast/axilla palpation: normal palpation of the breasts Resp Effort & Inspection: normal respiratory effort GI Inspection: Yes normal to inspection Palpation (GI): Soft to palpation Rectal Exam - Female: deferred General: Yes bladder normal to palpation External Female Exam: normal external appearance and normal appearance of the urethra Speculum Exam - Vagina: normal appearance of the vagina, normal palpation, normal vaginal discharge and vagina atrophic Speculum Exam - Cervix: normal appearance of the cervix and normal palpation Bimanual exam- vagina & uterus: normal bimanual exam, normal palpation, uterine size normal, bladder normal to palpation, normal palpation and non-tender Bimanual Exam- Adnexa, other: no masses Skin General skin exam: no rashes or lesions noted Rashes: no rashes Neuro General: patient oriented x3 Cognition (Neuro): normal cognition Extrem General: Yes normal to inspection Psych Attitude: cooperative Thought process: Normal thought process present Assessment & Plan Assessment & Plan (1) Encounter for well woman exam with routine gynecological exam: Code(s): Z01.419 - Encounter for gynecological examination (general) (routine) without abnormal findings Category: Medical Plan Discussed: Current recommendations for pap smears per ASCCP guidelines. BV panel done due to symptoms today await results for plan of care. Breast awareness, periodic self breast exams and yearly mammogram. Maintain a healthy lifestyle, well balanced diet including Calcium 1,200 mg and Vitamin D 600 IU daily, and routine exercise. Contact the office with any postmenopausal bleeding. Patient verbalizes understanding and agrees to the plan of care. She was given opportunity to ask questions and all questions were answered to the best of my ability. RTO in 1 year for annual purchase analyst exam. This note is constructed using voice recognition software. While every effort has been made to ensure accuracy, dramatic critic errors may have been included. Orders: Orders MM tomosynthesis screening BI Today Z12.31 - Encounter for screening mammogram for malignant neoplasm of breast Coding Level of Care Code Est Pt Prev Care 40-64y(82360) Diagnoses Encounter for well woman exam with routine gynecological exam Z01.419
== END 2023-12-23 14:22 | disposition home or self-care (01) ==
PROVIDERS: PCP Internal Medicine; Visit Provider Advanced Practice Midwife
DX: Z01.419 Encounter for gynecological examination (general) (routine) without abnormal findings (principal)
CPT/HCPCS: 99396

== ENCOUNTER 2024-02-05 08:48 | Outpatient (REF) | payer BC, SELFPAY ==
[2024-02-05 10:35] LABS: MANUAL DIFF FLAG NO
[2024-02-05 10:40] LABS: Basophils Absolute Auto 0.2 X10*3/uL (0.0-0.2); Basophils Percent Auto 1.6 % (0-2); Eosinophils Absolute Auto 0.3 X10*3/uL (0.0-0.4); Eosinophils Percent Auto 3.1 % (0-4); Hematocrit 42.1 % (37.0-47.0); Hemoglobin 13.9 g/dl (12.0-16.0); Imm Gran Abs Auto 0.03 X10*3/uL (0.00-0.03); Imm Gran Pct Auto 0.3 % (0.0-0.4); Lymphocytes Absolute Auto 3.7 X10*3/uL (1.2-4.9); Lymphocytes Percent Auto 38.5 % (20-40); Mean Corpuscular Hemoglobin 30.8 pg (27.0-33.0); Mean Corpuscular Volume 93.1 fL (80.0-98.0); Mean Platelet Volume 9.5 fL (9.4-12.3); Monocytes Absolute Auto 0.8 X10*3/uL (0.1-1.2); Monocytes Percent Auto 7.9 % (2-11); Neutrophils Absolute Auto 4.7 x10*3/uL (2.0-8.3); Neutrophils Percent Auto 48.6 % (45-73); Platelet Count 340 X10*3/uL (160-400); Red Blood Count 4.52 X10*6/uL (4.20-5.50); Red Cell Distribution Width 13.8 % (11.0-16.0); White Blood Count 9.6 X10*3/uL (4.8-10.8)
[2024-02-05 11:20] LABS: Alanine Aminotransferase 19 U/L (0-31); Albumin Level 4.5 g/dL (3.5-5.0); Alkaline Phosphatase 108 U/L (39-117); Anion Gap 13 (12-20); Aspartate Amino Transferase 18 U/L (5-31); Bilirubin Total 0.5 mg/dL (0.0-1.0); Blood Urea Nitrogen 15 mg/dL (9-16); Calcium 9.5 mg/dL (8.4-10.2); Carbon Dioxide 28 mmol/L (22-29); Chloride 108 mmol/L (96-108); Cholesterol 161 mg/dL (<200); Estimated Glomerular Filt Rate 58; Glucose Fasting 134 mg/dL (60-99); HDL Cholesterol 42 mg/dL (>40); LDL Cholesterol Calculated 96 mg/dL (<100); Potassium 4.2 mmol/L (3.3-5.1); Sodium 145 mmol/L (135-145); Total Protein 7.2 g/dL (6.5-8.0); Triglycerides 118 mg/dL (<150); Vitamin D 25-OH Total 44.8 ng/mL (>30)
[2024-02-05 11:32] LABS: Appearance Urine Clear; Color Urine Yellow; Glucose Urine UA Negative (Negative); Leukocyte Esterase Urine Negative (Negative); Nitrite Urine Negative (Negative); Specific Gravity - Urine 1.015 (1.005-1.025); UMIC TRIGGER UACC YES; Urine Blood Trace (Negative); Urine Ketones Negative (Negative); Urine Protein Negative (Neg-Trace)
[2024-02-05 11:36] LABS: Bacteria Urine None Seen (None Seen); Hyaline Casts Urine 0-2 /LPF (0-2); Squamous Epithelial Cell Urine 0-2 /HPF (0-2); WBC Urine 0-5 /HPF (0-5)
== END 2024-02-05 08:49 | disposition home or self-care (01) ==
LOC: HO.10HDL 08:48
PROVIDERS: Visit Provider Internal Medicine
DX: E78.00 Pure hypercholesterolemia, unspecified (principal); E55.9 Vitamin D deficiency, unspecified; I10 Essential (primary) hypertension
CPT/HCPCS: 36415; 80053; 80061; 81001; 81003; 82306; 84443; 85025

== ENCOUNTER 2024-02-08 14:33 | Outpatient (AMB) | payer BC, SELFPAY ==
--- NOTE | 2024-02-08 14:36 | A.OFFPC_ITS ---
Vital Signs 02/08/24 14:38 Height 5 ft 2 in Weight 141 lb BMI 25.8 BP 138/70 Blood Pressure Location Lt brachial Position Sitting Pulse 95 Pulse Source Pulse Oximeter Pulse Oximetry (%) 99 Oxygen Delivery Method Room Air Intake Visit Reasons: hyperlipidemia, migraine, anxiety Intake Note: Patient is here to follow up on Hyperlipidemia, Migraine, Anxiety. 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: Not Required per policy Accompanied by: Self / Same As Patient Allergies No Known Allergies [No Known Allergies*] Allergy (Verified 02/08/24 15:31) Medication List - Last Reconciled 02/08/24 by Immanuel Lin MD albuterol sulfate 90 mcg/actuation (Ventolin HFA) 2 puffs inhalation Q6H PRN 30 days atorvastatin 10 mg PO DAILY 90 days cholecalciferol (vitamin D3) 50 mcg PO DAILY fluticasone propionate 50 mcg/actuation 2 sprays intranasal DAILY gabapentin 600 mg PO BID ibuprofen 800 mg PO TID PRN 30 days Lactobacillus acidophilus (Probiotic Acidophilus) 100 mmu cells PO DAILY lorazepam 0.5 mg PO TID PRN 30 days Tobacco use date assessed: 02/08/24 Dental Screening Dental Screen Date: 02/08/24 Did you have a dental visit in the last 12 months?: No Did you have a dental problem in the last 6 months where you did not have access to dental care?: No Was dental information given to patient?: No (Dentures) HPI hyperlipidemia, migraine, anxiety HPI Details Patient comes in today for her follow up visit States that she currently feels okay She denies any headaches or dizziness Denies any chest pains, no shortness of breath No nausea/vomiting, no abdominal pain No change in bowel habits noted Needs a couple of her Rx refilled Had her follow-up labs done a few days ago - to discuss her results [facility] Medical History Depression Anxiety Periodic limb movement disorder Mild obstructive sleep apnea GERD without esophagitis Vitamin D deficiency Palpitations Impaired fasting glucose Migraine Lumbar degenerative disc disease Pure hypercholesterolemia Surgical History Hx laparoscopic cholecystectomy (10/22/20) No pertinent past surgical history Family History Father Cancer Mother CVD (cardiovascular disease) Social History Household Members: Family Housing: House Do you presently have visiting nurse or other home services: No Alcohol intake: never Patient Tobacco Use Status: Current everyday Tobacco user Tobacco use type: Cigarette Cigarette Packs Per Day: 0.5 Cigarettes Per Day: 7 Years Smoked: 15 e-Cigarette/Vaping Use: Never Used Second Hand Smoke Exposure: Yes service: No Current occupational status: unemployed Sexual orientation: Straight/Heterosexual Gender identity: Female Cognitive needs: No Hearing needs: No Vision needs: Yes Female Reproductive History Menstrual Age of Menarche: 10 Questionnaire PHQ-9 Over the last 2 weeks, how often have you been bothered by any of the following problems? 1. Little interest or pleasure in doing things: not at all 2. Feeling down, depressed, or hopeless: not at all 3. Trouble falling or staying asleep, or sleeping too much: not at all 4. Feeling tired or having little energy: not at all 5. Poor appetite or overeating: not at all 6. Feeling bad about yourself - or that you are a failure or have let yourself or your family down: not at all 7. Trouble concentrating on things, such as reading the newspaper or watching television: not at all 8. Moving or speaking so slowly that other people could have noticed. Or the opposite - being so fidgety or restless that you have been moving around a lot more than usual: not at all 9. Thoughts that you would be better off or of hurting yourself in some way: not at all Total score: 0 Depression Screening Interpretation: Negative Depression Screening Done: Yes 88176 - PHQ-9 Billing: Yes Source: Developed by Drs. Thomas Brady, Zeny Boyce, Ray Mcgovern and colleagues, with an educational yaya from [employer]. Thrive Questionnaire Date Thrive assessed: 02/08/24 I am a: Patient What is your living situation today?: I have a steady place to live Within the past 12 months, did the food you bought not last and you didn't have the money to get more?: Never true Within the past 12 months, did you worry whether your food would run out before you got money to buy more?: Never true Do you have trouble paying for medicines?: No Do you have trouble getting transportation to medical appointments?: No Do you have trouble paying your heating and electricity bill?: No Do you have trouble taking care of your child, family member or friend?: No Do you have trouble with day-to-day activities such as bathing, preparing meals, shopping, managing finances, etc.?: No Are you currently unemployed and looking for a job?: No Are you interested in more education?: No Currently or been in a relationship where the following occur: No concerns reported THRIVE Score: 0 AUDIT C Alcohol Use Questionnaire (AUDIT-C) 1. How often do you have a drink containing alcohol?: Never 3. How often do you have six or more drinks on one occasion?: Never Total Score: 0 Score Reviewed/Action Taken: Yes HUSSEIN-7 AMB Questionnaire HUSSEIN-7 Date HUSSEIN - 7 assessed: 02/08/24 Feeling nervous, anxious, or on edge: 0 = Not at all Not being able to stop or control worryin = Not at all Worrying too much about different things: 0 = Not at all Trouble relaxin = Not at all Being so restless that it is hard to sit still: 0 = Not at all Becoming easily annoyed or irritable: 0 = Not at all Feeling afraid as if something awful might happen: 0 = Not at all Total HUSSEIN-7 score (0-4 normal; 5-9 mild; 10-14 moderate; 15-21 severe): 0 Source: Developed by Drs. Thomas Brady, Zeny Boyce, Ray Mcgovern and colleagues, with an educational yaya from [employer]. Review of Systems Const Denies chills, Denies fatigue, Denies fever(s) and Denies headache(s) ENT Denies dysphagia, Denies dizziness, Denies otalgia, Denies headache(s), Reports hearing loss (in the left ear ), Denies neck pain, Denies odynophagia and Denies sore throat Card Denies chest pain, Reports palpitations (occasionally, are mostly brief and associated with no symptoms) and Denies dyspnea Resp Denies chest congestion, Denies cough, Denies dyspnea and Denies wheezing GI Denies abdominal pain, Denies constipation, Denies dysphagia, Denies heartburn, Denies diarrhea, Denies nausea, Denies odynophagia and Denies vomiting Denies difficulty voiding, Denies nocturia, Denies dysuria and Denies urinary urgency Musc Reports back pain (chronic, on and off) and Denies neck pain Skin/Breast Denies rash Neuro Denies dizziness and Denies headache(s) Psych Reports anxiety Endo Details: (+) hot flashes Denies fatigue and Reports palpitations (occasionally, are mostly brief and associated with no symptoms) Aller/Immun Denies wheezing Physical exam (Primary Care) Vital Signs: Last Vital Signs Pulse 95 02/08/24 14:38 BP 138/70 02/08/24 14:38 Pulse Ox 99 02/08/24 14:38 Oxygen Delivery Method Room Air 02/08/24 14:38 BMI result Body Mass Index 25.8 Tobacco/Smoking Status: Tobacco use Status Tobacco use date assessed 02/08/24 02/08/24 14:40 Patient Tobacco Use Status Current everyday Tobacco 02/08/24 14:40 Tobacco use type Cigarette 02/08/24 14:40 e-Cigarette/Vaping Use Never Used 02/08/24 14:40 PHQ-9: PHQ-9 Score PHQ-9: Total score 0 02/08/24 14:40 Depression Screening Interpretation: Negative Thrive Assessment: Date of Thrive Assessment Date Thrive assessed 02/08/24 02/08/24 14:40 Currently or been in a relationship where the following occur: No concerns r eported Const General: no acute distress and alert HENMT Ears: TM's normal bilaterally and EAC's normal Throat: Yes posterior oropharynx normal and Yes tonsils normal (no TP congestion noted) Neck Neck: Yes no lymphadenopathy and Yes supple Thyroid: Thyroid normal Resp Auscultation: clear to auscultation bilaterally, no crackles, no rales and no wheezes Cardio Rate: regular rate Rhythm: regular rhythm Heart sounds: no murmurs GI Palpation (GI): Soft to palpation and nontender Auscultation: normal bowel sounds General: Yes no CVA tenderness Back/Spine/Pelvis Back: no CVA tenderness Thoracic/Lumbar Spine: lumbar spinal tenderness Skin Rashes: no rashes Extrem General: Yes no clubbing, cyanosis or edema Results Reviewed Results Reviewed: Laboratory Tests 02/05/24 08:50 WBC 9.6 Hgb 13.9 Hct 42.1 Plt Count 340 Sodium 145 Potassium 4.2 Creatinine 1.00 Estimated GFR 58 Fasting Glucose 134 H Calcium 9.5 AST 18 ALT 19 Triglycerides 118 Cholesterol 161 LDL Cholesterol, Calc 96 HDL Cholesterol 42 25-OH Vitamin D Total 44.8 TSH 0.60 Ur Specific [place] 1.015 Urine Protein Negative Urine Glucose (UA) Negative Urine Blood Trace H Urine Nitrite Negative Ur Leukocyte Esterase Negative Assessment and Plan Assessment & Plan (1) Pure hypercholesterolemia: Code(s): E78.00 - Pure hypercholesterolemia, unspecified Plan: Results of her labs done a few days ago reviewed and discussed with patient - advised that her cholesterol levels have improved significantly from her previous numbers in June 2023 Reinforced low cholesterol diet Continue Atorvastatin 10 mg QD Will recheck her labs and fasting lipids in 4 months for follow-up (2) Palpitations: Code(s): R00.2 - Palpitations Plan: Stable, with only occasional episodes that are mostly brief and asymptomatic - she is on Propranolol Echocardiogram done a couple of years ago came back normal Follow up with Cardiology as scheduled -? recalls being advised that her palpitations were most likely triggered by anxiety (3) Migraine: Code(s): G43.909 - Migraine, unspecified, not intractable, without status migrainosus Qualifiers: Migraine type: unspecified Status migrainosus presence: without status migrainosus Intractability: not intractable Qualified Code(s): G43.909 - Migraine, unspecified, not intractable, without status migrainosus Plan: Stable on prophylactic Rx - continue Propranolol 10 mg BID Follow-up with Neurology as scheduled (4) Impaired fasting glucose: Code(s): R73.01 - Impaired fasting glucose Plan: Her HgbA1c was at 5.9% when checked back in June 2023; FBS was elevated at 134 mg/dl on her recent labs Reinforced low calorie diet /exercise as tolerated Will recheck her FBS and HgbA1c in 4 months for follow up (5) Lumbar degenerative disc disease: Code(s): M51.36 - Other intervertebral disc degeneration, lumbar region Plan: Reinforced activity and weight lifting restriction Continue Gabapentin 600 mg BID, Ibuprofen 800 mg TID PRN and Tizanidine 4 mg TID as needed Follow-up with [facility] as scheduled (6) Vitamin D deficiency: Code(s): E55.9 - Vitamin D deficiency, unspecified Plan: Continue Vitamin D3 2000 units QD (7) GERD without esophagitis: Code(s): K21.9 - Gastro-esophageal reflux disease without esophagitis Plan: Dietary restrictions reinforced (8) Mild obstructive sleep apnea: Code(s): G47.33 - Obstructive sleep apnea (adult) (pediatric) Plan: (+) mild GUSTAVO based on her sleep study done previously Patient will consider using CPAP device only if more convenient alternatives fail or her symptoms get worse (9) Anxiety: Code(s): F41.9 - Anxiety disorder, unspecified Plan: Continue Lorazepam 0.5 mg 2 to 3 times a day as needed She is also on Paroxetine 30 mg QD, which should also help with her anxiety (10) Depression: Code(s): F32.9 - Major depressive disorder, single episode, unspecified Qualifiers: Depression Type: unspecified Qualified Code(s): F32.9 - Major depressive disorder, single episode, unspecified Plan: Continue Paroxetine 30 mg QD Follow-up with Psychiatry as scheduled (11) Smoker: Code(s): F17.200 - Nicotine dependence, unspecified, uncomplicated Plan: Counseled again to continue attempts at smoking cessation Plan Follow up in 4 months Orders: Orders Lipid Panel 4 Months E78.00 - Pure hypercholesterolemia, unspecified Hemoglobin A1c 4 Months R73.01 - Impaired fasting glucose TSH reflex Free T4 4 Months E78.00 - Pure hypercholesterolemia, unspecified Vitamin D 25-OH Total 4 Months E55.9 - Vitamin D deficiency, unspecified Complete Blood Count Auto Diff 4 Months D64.9 - Anemia, unspecified Comprehensive [place]. Panel Fast 4 Months E78.00 - Pure hypercholesterolemia, unspecified UA CC w/rflx Micro + Cult 4 Months R30.0 - Dysuria Medications: Refilled atorvastatin 10 mg PO DAILY 90 days 90 tabs 1RF ibuprofen 800 mg PO TID 30 days PRN 90 tabs 3RF fever or pain Coding Level of Care Code Est Pt Level 4 (59494) Complex EM visit Add On G2211 Diagnoses Pure hypercholesterolemia E78.00 Palpitations R00.2 Migraine without status migrainosus, not intractable, unspecified migraine type G43.909 Migraine type: unspecified Status migrainosus presence: without status migrainosus Intractability: not intractable Impaired fasting glucose R73.01 Lumbar degenerative disc disease M51.36 Vitamin D deficiency E55.9 GERD without esophagitis K21.9 Mild obstructive sleep apnea G47.33 Anxiety F41.9 Depression, unspecified depression type F32.9 Depression Type: unspecified Smoker F17.200
[2024-02-08 14:38] VITALS: BP 138/70; PULSE 95; O2SAT 99; BMI 25.8
== END 2024-02-08 15:35 | disposition home or self-care (01) ==
PROVIDERS: PCP Internal Medicine; Visit Provider Internal Medicine
DX: E78.00 Pure hypercholesterolemia, unspecified (principal); R00.2 Palpitations; G43.909 Migraine, unspecified, not intractable, without status migrainosus; R73.01 Impaired fasting glucose; M51.36 Other intervertebral disc degeneration, lumbar region; E55.9 Vitamin D deficiency, unspecified; K21.9 Gastro-esophageal reflux disease without esophagitis; G47.33 Obstructive sleep apnea (adult) (pediatric); F41.9 Anxiety disorder, unspecified
CPT/HCPCS: 99214

== ENCOUNTER 2024-06-17 08:57 | Outpatient (REF) | payer SELFPAY ==
[2024-06-17 09:22] LABS: MANUAL DIFF FLAG NO
[2024-06-17 09:41] LABS: Basophils Absolute Auto 0.1 X10*3/uL (0.0-0.2); Basophils Percent Auto 1.5 % (0-2); Eosinophils Absolute Auto 0.3 X10*3/uL (0.0-0.4); Eosinophils Percent Auto 3.3 % (0-4); Hematocrit 41.9 % (37.0-47.0); Hemoglobin 13.8 g/dl (12.0-16.0); Imm Gran Abs Auto 0.04 X10*3/uL (0.00-0.03); Imm Gran Pct Auto 0.5 % (0.0-0.4); Lymphocytes Percent Auto 34.1 % (20-40); Mean Corpuscular HGB Conc 32.9 g/dl (31.0-35.0); Mean Corpuscular Hemoglobin 30.5 pg (27.0-33.0); Mean Corpuscular Volume 92.5 fL (80.0-98.0); Monocytes Absolute Auto 0.7 X10*3/uL (0.1-1.2); Monocytes Percent Auto 8.1 % (2-11); Neutrophils Absolute Auto 4.6 x10*3/uL (2.0-8.3); Neutrophils Percent Auto 52.5 % (45-73); Platelet Count 356 X10*3/uL (160-400); Red Blood Count 4.53 X10*6/uL (4.20-5.50); Red Cell Distribution Width 13.2 % (11.0-16.0); White Blood Count 8.7 X10*3/uL (4.8-10.8)
[2024-06-17 09:43] LABS: Appearance Urine Clear; Color Urine Yellow; Glucose Urine UA Negative (Negative); Leukocyte Esterase Urine Small (1+) (Negative); Nitrite Urine Negative (Negative); UMIC TRIGGER UACC YES; Urine Blood Negative (Negative); Urine Ketones Negative (Negative); Urine Protein Negative (Neg-Trace)
[2024-06-17 09:47] LABS: Bacteria Urine None Seen (None Seen); Hyaline Casts Urine 0-2 /LPF (0-2); RBC Urine 0-2 /HPF (0-2); UACC Culture Trigger YES
[2024-06-17 09:50] LABS: Estimated Average Glucose 123 mg/dL; Hemoglobin A1C 144.4488 umol/L; Hemoglobin A1c % 5.9 % (<6.0); Total Hemoglobin (HGBA1C) 3486.9981 umol/L
[2024-06-17 10:20] LABS: Alanine Aminotransferase 27 U/L (0-31); Albumin Level 4.5 g/dL (3.5-5.0); Alkaline Phosphatase 107 U/L (39-117); Anion Gap 12 (12-20); Aspartate Amino Transferase 23 U/L (5-31); Bilirubin Total 0.4 mg/dL (0.0-1.0); Blood Urea Nitrogen 18 mg/dL (9-16); Calcium 10.2 mg/dL (8.4-10.2); Carbon Dioxide 27 mmol/L (22-29); Chloride 109 mmol/L (96-108); Cholesterol 166 mg/dL (<200); Estimated Glomerular Filt Rate 60; Glucose Fasting 131 mg/dL (60-99); HDL Cholesterol 38 mg/dL (>40); LDL Cholesterol Calculated 107 mg/dL (<100); Potassium 4.3 mmol/L (3.3-5.1); Sodium 144 mmol/L (135-145); Total Protein 7.3 g/dL (6.5-8.0); Triglycerides 106 mg/dL (<150)
[2024-06-17 10:37] LABS: TSH reflex Free T4 0.85 uIU/mL (0.32-4.0); Vitamin D 25-OH Total 26.8 ng/mL (>30)
== END 2024-06-17 08:58 | disposition home or self-care (01) ==
LOC: HO.LAB 08:57
PROVIDERS: PCP Internal Medicine; Visit Provider Internal Medicine
DX: D64.9 Anemia, unspecified (principal); R73.01 Impaired fasting glucose; E78.00 Pure hypercholesterolemia, unspecified; E55.9 Vitamin D deficiency, unspecified; R30.0 Dysuria
CPT/HCPCS: 36415; 80053; 80061; 81001; 82306; 83036; 84443; 85025; 87086

== ENCOUNTER 2024-06-20 12:57 | Outpatient (AMB) | payer BC, SELFPAY ==
--- NOTE | 2024-06-20 12:50 | MHC.OFFVIS ---
Intake Visit Reasons: Follow Up Allergies No Known Allergies [No Known Allergies*] Allergy (Verified 02/08/24 15:31) PFSH Medical History Depression Anxiety Periodic limb movement disorder Mild obstructive sleep apnea GERD without esophagitis Vitamin D deficiency Palpitations Impaired fasting glucose Migraine Lumbar degenerative disc disease Pure hypercholesterolemia Surgical History Hx laparoscopic cholecystectomy (10/22/20) No pertinent past surgical history Family History Father Cancer Mother CVD (cardiovascular disease) Social History Household Members: Family Housing: House Do you presently have visiting nurse or other home services: No Alcohol intake: never Patient Tobacco Use Status: Current everyday Tobacco user Tobacco use type: Cigarette Cigarette Packs Per Day: 0.5 Cigarettes Per Day: 7 Years Smoked: 15 e-Cigarette/Vaping Use: Never Used Second Hand Smoke Exposure: Yes service: No Current occupational status: unemployed Sexual orientation: Straight/Heterosexual Gender identity: Female Cognitive needs: No Hearing needs: No Vision needs: Yes Female Reproductive History Menstrual Age of Menarche: 10 Coding
--- NOTE | 2024-06-20 12:59 | A.OFFPC_ITS ---
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 Required: No Accompanied by: Self / Same As Patient Allergies No Known Allergies [No Known Allergies*] Allergy (Verified 06/20/24 13:24) Medication List - Last Reconciled 06/20/24 by Immanuel Lin MD albuterol sulfate 90 mcg/actuation (Ventolin HFA) 2 puffs inhalation Q6H PRN 30 days atorvastatin 10 mg PO DAILY 90 days cholecalciferol (vitamin D3) 50 mcg PO DAILY fluticasone propionate 50 mcg/actuation 2 sprays intranasal DAILY ibuprofen 800 mg PO TID PRN 30 days Lactobacillus acidophilus (Probiotic Acidophilus) 100 mmu cells PO DAILY lorazepam 0.5 mg PO TID PRN 30 days Tobacco use date assessed: 06/20/24 Dental Screening Dental Screen Date: 06/20/24 Did you have a dental visit in the last 12 months?: No Did you have a dental problem in the last 6 months where you did not have access to dental care?: No Was dental information given to patient?: No HPI HPI Comments History of Present Illness Details The patient is here for f/u visit Allergies pt reports that her allergies has been acting up for the past couple weeks reports nasal congestion and ear fullness. she reports eye itchiness, but not redness or drainage she denies sob or chest pain, denies fever or chills she denies sore throat, she reports this is worse at night and in the morning after waking up she is currently taking claritin, flonase inhaler and air-purification Prediabetes The patient fast glucose was 131 (slightly better, was 134) and a1c 5.9% she denies any feeling of dizziness she denies increase in appetite denies frequent urination denies numbness or tingling denies any visual changes Hypercholestermia pt denies any chest pain, sob or decreased in activity levels she denies any calf pain The patient LDl 107 slightly increased, HDL 38, total cholesterol 166 pt reports that has been active chasing around her grand kids Reports that she has been watching her diet, but her hydration could be a little better Reports that carbs is her weakness, but she is working on it She also reports that she is still smoking but is only smoking 6-7 cigarettes/day she continues on atorvastatin 10mg Anxiety she reports that this is well controlled she reports only have few episodes once in awhile she is continues on the lorazepam as prescribe she denies si/hi Vit D Her level decreased fro 44.1 to 26.8 pt reports that she recently start taking the vit D3 again she usually stop during the summer time she denies feeling tired Needs a few of her Rx refilled She would also like to get her flu shot today PFSH Medical History Depression Anxiety Periodic limb movement disorder Mild obstructive sleep apnea GERD without esophagitis Vitamin D deficiency Palpitations Impaired fasting glucose Migraine Lumbar degenerative disc disease Pure hypercholesterolemia Surgical History Hx laparoscopic cholecystectomy (10/22/20) No pertinent past surgical history Family History Father Cancer Mother CVD (cardiovascular disease) Social History Household Members: Family Housing: House Do you presently have visiting nurse or other home services: No Alcohol intake: never Patient Tobacco Use Status: Current everyday Tobacco user Tobacco use type: Cigarette Cigarette Packs Per Day: 0.5 Cigarettes Per Day: 7 Years Smoked: 15 e-Cigarette/Vaping Use: Never Used Second Hand Smoke Exposure: Yes service: No Current occupational status: unemployed Sexual orientation: Straight/Heterosexual Gender identity: Female Cognitive needs: No Hearing needs: No Vision needs: Yes Female Reproductive History Menstrual Age of Menarche: 10 Questionnaire PHQ-9 Over the last 2 weeks, how often have you been bothered by any of the following problems? 1. Little interest or pleasure in doing things: not at all 2. Feeling down, depressed, or hopeless: not at all 3. Trouble falling or staying asleep, or sleeping too much: not at all 4. Feeling tired or having little energy: not at all 5. Poor appetite or overeating: not at all 6. Feeling bad about yourself - or that you are a failure or have let yourself or your family down: not at all 7. Trouble concentrating on things, such as reading the newspaper or watching television: not at all 8. Moving or speaking so slowly that other people could have noticed. Or the opposite - being so fidgety or restless that you have been moving around a lot more than usual: not at all 9. Thoughts that you would be better off or of hurting yourself in some way: not at all Total score: 0 Depression Screening Interpretation: Negative Depression Screening Done: Yes 18721 - PHQ-9 Billing: Yes Source: Developed by Drs. Thomas Brady, Zeny Boyce, Ray Mcgovern and colleagues, with an educational yaya from [employer]. Thrive Questionnaire Date Thrive assessed: 06/20/24 I am a: Patient What is your living situation today?: I have a steady place to live Within the past 12 months, did the food you bought not last and you didn't have the money to get more?: Never true Within the past 12 months, did you worry whether your food would run out before you got money to buy more?: Never true Do you have trouble paying for medicines?: No Do you have trouble getting transportation to medical appointments?: No Do you have trouble paying your heating and electricity bill?: No Do you have trouble taking care of your child, family member or friend?: No Do you have trouble with day-to-day activities such as bathing, preparing meals, shopping, managing finances, etc.?: No Are you currently unemployed and looking for a job?: No Are you interested in more education?: No Currently or been in a relationship where the following occur: No concerns reported THRIVE Score: 0 AUDIT C Alcohol Use Questionnaire (AUDIT-C) 1. How often do you have a drink containing alcohol?: Never 3. How often do you have six or more drinks on one occasion?: Never Total Score: 0 Score Reviewed/Action Taken: Yes HUSSEIN-7 AMB Questionnaire HUSSEIN-7 Date HUSSEIN - 7 assessed: 06/20/24 Feeling nervous, anxious, or on edge: 0 = Not at all Not being able to stop or control worryin = Not at all Worrying too much about different things: 0 = Not at all Trouble relaxin = Not at all Being so restless that it is hard to sit still: 0 = Not at all Becoming easily annoyed or irritable: 0 = Not at all Feeling afraid as if something awful might happen: 0 = Not at all Total HUSSEIN-7 score (0-4 normal; 5-9 mild; 10-14 moderate; 15-21 severe): 0 Source: Developed by Drs. Thomas Brady, Zeny Boyce, Ray Mcgovern and colleagues, with an educational yaya from [employer]. Review of Systems Const Denies chills, Denies fatigue, Denies fever(s) and Denies headache(s) ENT Denies dysphagia, Denies dizziness, Denies otalgia, Denies headache(s), Reports hearing loss (in the left ear ), Denies neck pain, Denies odynophagia and Denies sore throat Card Denies chest pain, Reports palpitations (occasionally, are mostly brief and associated with no symptoms) and Denies dyspnea Resp Denies chest congestion, Denies cough and Denies dyspnea GI Denies abdominal pain, Denies constipation, Denies dysphagia, Denies heartburn, Denies diarrhea, Denies nausea, Denies odynophagia and Denies vomiting Denies difficulty voiding, Denies nocturia, Denies dysuria and Denies urinary urgency Musc Reports back pain (chronic, on and off) and Denies neck pain Skin/Breast Denies rash Neuro Denies dizziness and Denies headache(s) Psych Reports anxiety Endo Details: (+) hot flashes Denies fatigue and Reports palpitations (occasionally, are mostly brief and associated with no symptoms) Physical exam (Primary Care) Vital Signs: Last Vital Signs Pulse 94 06/20/24 13:00 BP 120/78 06/20/24 13:00 Pulse Ox 98 06/20/24 13:00 Oxygen Delivery Method Room Air 06/20/24 13:00 BMI result Body Mass Index 26.0 Tobacco/Smoking Status: Tobacco use Status Tobacco use date assessed 06/20/24 06/20/24 13:03 Patient Tobacco Use Status Current everyday Tobacco 06/20/24 13:03 Tobacco use type Cigarette 06/20/24 13:03 e-Cigarette/Vaping Use Never Used 06/20/24 13:03 PHQ-9: PHQ-9 Score PHQ-9: Total score 0 06/20/24 13:35 Depression Screening Interpretation: Negative Thrive Assessment: Date of Thrive Assessment Date Thrive assessed 06/20/24 06/20/24 13:03 Currently or been in a relationship where the following occur: No concerns reported Const General: no acute distress and alert HENMT Ears: TM's normal bilaterally and EAC's normal Throat: Yes posterior oropharynx normal and Yes tonsils normal (no TP congestion noted) Neck Neck: Yes no lymphadenopathy and Yes supple Thyroid: Thyroid normal Resp Auscultation: clear to auscultation bilaterally, no rales and no wheezes Cardio Rate: regular rate Rhythm: regular rhythm Heart sounds: no murmurs GI Palpation (GI): Soft to palpation and nontender Auscultation: normal bowel sounds General: Yes no CVA tenderness Back/Spine/Pelvis Back: no CVA tenderness Thoracic/Lumbar Spine: lumbar spinal tenderness Skin Rashes: no rashes Extrem General: Yes no clubbing, cyanosis or edema Office Procedures Flu Questionnaire Does the patient have a severe egg allergy?: No Does the patient have severe life threatening allergies?: No Does the patient have a fever or illness today?: No Has the patient ever had Guillain-Canute Syndrome?: No Has the patient ever had any past reaction to a flu shot?: No Immunizations Fluarix Triv 4735-1488 (PF) 45 mcg (15 mcg x 3)/0.5 mL IM syringe Performing Provider: Immanuel Lin MD [place] [facility] [place] [facility] Administered by: RON Trejo on 06/20/24 13:35 Dose Route Admin Location Dispensed Lot Number Expiration Date [facility] Ad Taker 0.5 mL IM Left Deltoid 0.5 mL [id number] 01/09/25 [id number] [email or web address] VIS Given Date VIS Provided VIS Publication Date 06/20/24 Single Vaccine 21 Eligibility Eligibility Date Funding Source Not [facility] Eligible 06/20/24 Private Results Reviewed Results Reviewed: Laboratory Tests 06/17/24 06/17/24 09:19 09:20 WBC 8.7 Hgb 13.8 Hct 41.9 Plt Count 356 Sodium 144 Potassium 4.3 Creatinine 0.97 Estimated GFR 60 Fasting Glucose 131 H Hemoglobin A1c % 5.9 Calcium 10.2 D AST 23 ALT 27 Triglycerides 106 Cholesterol 166 LDL Cholesterol, Calc 107 H HDL Cholesterol 38 L 25-OH Vitamin D Total 26.8 L TSH 0.85 Ur Specific [place] 1.010 Urine Protein Negative Urine Glucose (UA) Negative Urine Blood Negative Urine Nitrite Negative Ur Leukocyte Esterase Small (1+) H Coding Level of Care Code Est Pt Level 4 (60069) Diagnoses Pure hypercholesterolemia E78.00 Palpitations R00.2 Migraine without status migrainosus, not intractable, unspecified migraine type G43.909 Migraine type: unspecified Status migrainosus presence: without status migrainosus Intractability: not intractable Impaired fasting glucose R73.01 Degeneration of intervertebral disc of lumbar region with discogenic back pain M51.360 Disc-related pain type: discogenic back pain only Vitamin D deficiency E55.9 GERD without esophagitis K21.9 Mild obstructive sleep apnea G47.33 Anxiety F41.9 Depression, unspecified depression type F32.9 Depression Type: unspecified Smoker F17.200 Additional Codes PHQ-9 - 92965 - PHQ-9 Billing: Yes ([id number]) Assessment & Plan Assessment & Plan (1) Pure hypercholesterolemia: Code(s): E78.00 - Pure hypercholesterolemia, unspecified Category: Medical Plan: Results of her labs done a few days ago reviewed and discussed with patient Reinforce low-cholesterol diet Continue Atorvastatin 10 mg QD Will recheck her labs and fasting lipids in 4 months for follow-up (2) Palpitations: Code(s): R00.2 - Palpitations Category: Medical Plan: Stable, with only occasional episodes that are mostly brief and asymptomatic She was on Propranolol in the past but she has not taken this in a while now Echocardiogram done a couple of years ago came back normal Follow up with Cardiology as scheduled -? she recalls being advised that her palpitations were most likely triggered by anxiety (3) Migraine: Code(s): G43.909 - Migraine, unspecified, not intractable, without status migrainosus Category: Medical Qualifiers: Migraine type: unspecified Status migrainosus presence: without status migrainosus Intractability: not intractable Qualified Code(s): G43.909 - Migraine, unspecified, not intractable, without status migrainosus Plan: Stable - she was on prophylactic Tx with Propranolol 10 mg BID in the past but has not been taking this in a while now Follow-up with Neurology as scheduled (4) Impaired fasting glucose: Code(s): R73.01 - Impaired fasting glucose Category: Medical Plan: Her FBS was at 131 mg/dl and HgbA1c at 5.9% on her labs done a few days ago Reinforced low calorie/low carb diet; exercise as tolerated Will recheck her FBS and HgbA1c in 4 months for follow up (5) Lumbar degenerative disc disease: Code(s): M51.36 - Other intervertebral disc degeneration, lumbar region Category: Medical Qualifiers: Disc-related pain type: discogenic back pain only Qualified Code(s): M51.360 - Other intervertebral disc degeneration, lumbar region with discogenic back pain only Plan: Reinforced activity and weight lifting restriction Continue Gabapentin 600 mg BID, Ibuprofen 800 mg TID PRN and Tizanidine 4 mg TID as needed Follow-up with [facility] as scheduled (6) Vitamin D deficiency: Code(s): E55.9 - Vitamin D deficiency, unspecified Category: Medical Plan: Continue Vitamin D3 2000 units QD (7) GERD without esophagitis: Code(s): K21.9 - Gastro-esophageal reflux disease without esophagitis Category: Medical Plan: Dietary restrictions reinforced (8) Mild obstructive sleep apnea: Code(s): G47.33 - Obstructive sleep apnea (adult) (pediatric) Category: Medical Plan: (+) mild GUSTAVO based on her sleep study done previously Patient states that she will consider using CPAP device only if more convenient alternatives fail or her symptoms get worse (9) Anxiety: Code(s): F41.9 - Anxiety disorder, unspecified Category: Medical Plan: Continue Lorazepam 0.5 mg 2 to 3 times a day as needed She is also on Paroxetine 30 mg QD, which also helps with her anxiety (10) Depression: Code(s): F32.9 - Major depressive disorder, single episode, unspecified Category: Medical Qualifiers: Depression Type: unspecified Qualified Code(s): F32.9 - Major depressive disorder, single episode, unspecified Plan: Continue Paroxetine 30 mg QD Follow-up with Psychiatry as scheduled (11) Smoker: Code(s): F17.200 - Nicotine dependence, unspecified, uncomplicated Category: Social Hx Plan: Patient is again counseled on complete smoking cessation Plan As requested, flu vaccine given to the patient today Follow up in 4 months Orders: Orders UA CC w/rflx Micro + Cult 4 Months R30.0 - Dysuria Hemoglobin A1c 4 Months R73.01 - Impaired fasting glucose Complete Blood Count Auto Diff 4 Months D64.9 - Anemia, unspecified Comprehensive [place]. Panel Fast 4 Months E78.00 - Pure hypercholesterolemia, unspecified Lipid Panel 4 Months E78.00 - Pure hypercholesterolemia, unspecified TSH reflex Free T4 4 Months E78.00 - Pure hypercholesterolemia, unspecified Influenza [id number] Immunization 06/20/24 Z23 - Encounter for immunization Medications: Refilled lorazepam 0.5 mg PO TID PRN 90 tabs 0RF anxiety 30 days atorvastatin 10 mg PO DAILY 90 tabs 1RF 90 days ibuprofen 800 mg PO TID PRN 90 tabs 3RF fever or pain 30 days
[2024-06-20 13:00] VITALS: BP 120/78; PULSE 94; O2SAT 98; BMI 26.0
== END 2024-06-20 13:36 | disposition home or self-care (01) ==
PROVIDERS: PCP Internal Medicine; Visit Provider Internal Medicine
DX: Z23 Encounter for immunization (principal)

== ENCOUNTER → 2024-06-20 12:57 | Outpatient (BNVA) | payer BC, SELFPAY | PROVIDERS: PCP Internal Medicine; Visit Provider Internal Medicine | DX: E78.00 Pure hypercholesterolemia, unspecified (principal); R00.2 Palpitations; G43.909 Migraine, unspecified, not intractable, without status migrainosus; R73.01 Impaired fasting glucose; Z23 Encounter for immunization; M51.360 Other intervertebral disc degeneration, lumbar region with discogenic back pain only; E55.9 Vitamin D deficiency, unspecified; K21.9 Gastro-esophageal reflux disease without esophagitis; G47.33 Obstructive sleep apnea (adult) (pediatric); F41.9 Anxiety disorder, unspecified; F32.9 Major depressive disorder, single episode, unspecified; F17.210 Nicotine dependence, cigarettes, uncomplicated; Z79.899 Other long term (current) drug therapy | CPT/HCPCS: 90471; 90656; 96127 ==

== ENCOUNTER 2024-10-14 08:52 | Outpatient (REF) | payer BC, SELFPAY ==
[2024-10-14 09:50] LABS: MANUAL DIFF FLAG NO
[2024-10-14 09:53] LABS: Basophils Absolute Auto 0.2 X10*3/uL (0.0-0.2); Basophils Percent Auto 1.4 % (0-2); Eosinophils Absolute Auto 0.3 X10*3/uL (0.0-0.4); Eosinophils Percent Auto 3.3 % (0-4); Hematocrit 41.6 % (37.0-47.0); Hemoglobin 13.7 g/dl (12.0-16.0); Imm Gran Abs Auto 0.03 X10*3/uL (0.00-0.03); Imm Gran Pct Auto 0.3 % (0.0-0.4); Lymphocytes Absolute Auto 3.7 X10*3/uL (1.2-4.9); Mean Corpuscular HGB Conc 32.9 g/dl (31.0-35.0); Mean Corpuscular Hemoglobin 30.4 pg (27.0-33.0); Mean Corpuscular Volume 92.2 fL (80.0-98.0); Mean Platelet Volume 9.2 fL (9.4-12.3); Monocytes Absolute Auto 0.9 X10*3/uL (0.1-1.2); Monocytes Percent Auto 8.3 % (2-11); Neutrophils Absolute Auto 5.3 x10*3/uL (2.0-8.3); Neutrophils Percent Auto 50.7 % (45-73); Platelet Count 365 X10*3/uL (160-400); Red Blood Count 4.51 X10*6/uL (4.20-5.50); Red Cell Distribution Width 13.2 % (11.0-16.0); White Blood Count 10.4 X10*3/uL (4.8-10.8)
[2024-10-14 10:03] LABS: Appearance Urine Clear; Color Urine Yellow; Glucose Urine UA Negative (Negative); Leukocyte Esterase Urine Moderate (2+) (Negative); Nitrite Urine Negative (Negative); Specific Gravity - Urine 1.015 (1.005-1.025); UMIC TRIGGER UACC YES; Urine Blood Small (1+) (Negative); Urine Ketones Negative (Negative); Urine Protein Negative (Neg-Trace)
[2024-10-14 10:07] LABS: Bacteria Urine Trace (None Seen); Hyaline Casts Urine 0-2 /LPF (0-2); UACC Culture Trigger YES; WBC Urine 21-50 /HPF (0-5)
[2024-10-14 10:14] LABS: Alanine Aminotransferase 23 U/L (0-31); Albumin Level 4.3 g/dL (3.5-5.0); Alkaline Phosphatase 114 U/L (39-117); Anion Gap 11 (12-20); Aspartate Amino Transferase 24 U/L (5-31); Bilirubin Total 0.6 mg/dL (0.0-1.0); Blood Urea Nitrogen 20 mg/dL (9-16); Calcium 9.4 mg/dL (8.4-10.2); Carbon Dioxide 27 mmol/L (22-29); Chloride 109 mmol/L (96-108); Cholesterol 154 mg/dL (<200); Estimated Glomerular Filt Rate > 60; Glucose Fasting 113 mg/dL (60-99); HDL Cholesterol 37 mg/dL (>40); LDL Cholesterol Calculated 99 mg/dL (<100); Potassium 3.9 mmol/L (3.3-5.1); Sodium 143 mmol/L (135-145); Total Protein 6.9 g/dL (6.5-8.0); Triglycerides 94 mg/dL (<150)
[2024-10-14 10:29] LABS: TSH reflex Free T4 0.79 uIU/mL (0.32-4.0)
[2024-10-14 11:22] LABS: Estimated Average Glucose 120 mg/dL; Hemoglobin A1C 143.2727 umol/L; Hemoglobin A1c % 5.8 % (<6.0); Total Hemoglobin (HGBA1C) 3547.8261 umol/L
== END 2024-10-14 08:53 | disposition home or self-care (01) ==
LOC: HO.10HDL 08:52
PROVIDERS: Visit Provider Internal Medicine
DX: D64.9 Anemia, unspecified (principal); E78.00 Pure hypercholesterolemia, unspecified; R73.01 Impaired fasting glucose; R30.0 Dysuria
CPT/HCPCS: 36415; 80053; 80061; 81001; 81003; 83036; 84443; 85025; 87086

== ENCOUNTER 2024-10-19 12:19 | Outpatient (AMB) | payer BC, SELFPAY ==
[2024-10-19 12:32] VITALS: BP 126/84; PULSE 88; O2SAT 99; BMI 24.7
--- NOTE | 2024-10-19 12:32 | A.OFFPC_ITS ---
Vital Signs 10/19/24 12:32 Height 5 ft 2 in Weight 135 lb BMI 24.7 BP 126/84 Blood Pressure Location Lt brachial Position Sitting Pulse 88 Pulse Source Pulse Oximeter Pulse Oximetry (%) 99 Oxygen Delivery Method Room Air Intake Visit Reasons: 4 Months f/u Industrial Electrical Engineer Required: No Accompanied by: Self / Same As Patient Allergies No Known Allergies [No Known Allergies*] Allergy (Verified 10/19/24 12:44) Medication List - Last Reconciled 10/19/24 by Immanuel Lin MD albuterol sulfate 90 mcg/actuation (Ventolin HFA) 2 puffs inhalation Q6H PRN 30 days atorvastatin 10 mg PO DAILY 90 days cholecalciferol (vitamin D3) 50 mcg PO DAILY fluticasone propionate 50 mcg/actuation 2 sprays intranasal DAILY gabapentin 100 mg PO TID ibuprofen 800 mg PO TID PRN 30 days Lactobacillus acidophilus (Probiotic Acidophilus) 100 mmu cells PO DAILY lorazepam 0.5 mg PO TID PRN 30 days Tobacco use date assessed: 10/19/24 Dental Screening Dental Screen Date: 10/19/24 Did you have a dental visit in the last 12 months?: No Did you have a dental problem in the last 6 months where you did not have access to dental care?: No Was dental information given to patient?: No HPI 4 Months f/u HPI Details Patient comes in today for her follow up visit for her hyperlipidemia, migraine, GERD and anxiety States that she feels okay Reports that she came down with some stomach virus last month and has lost a lot of weight as a result as she could hardly keep anything down when she was sick States that her stomach is feeling much better now but she still cannot eat too much as she feels full just after eating a small amount of food lately She denies any nausea/vomiting or abdominal pain and states that her bowel habits are at least back to normal She denies any headaches or dizziness; denies any fever Denies any chest pains, no increased shortness of breath Adds that she recalls being advised by her all round logger during a recent eye exam that the pressure in her left eye seems to be high and that she should see her radio station engineer as soon as possible to get this checked out further - patient sees Dr. Winn for her eye exam in the past Needs her Albuterol inhaler Rx refilled She had her follow-up labs done a few days ago - to discuss her results [facility] Medical History (Updated 10/19/24 @ 13:36 by Immanuel Lin MD) Depression Anxiety Periodic limb movement disorder Mild obstructive sleep apnea GERD without esophagitis Vitamin D deficiency Palpitations Impaired fasting glucose Migraine Lumbar degenerative disc disease Pure hypercholesterolemia Surgical History (Updated 10/19/24 @ 13:31 by Immanuel Lin MD) Hx laparoscopic cholecystectomy (10/22/20) Family History Father Cancer Mother CVD (cardiovascular disease) Social History Household Members: Family Housing: House Do you presently have visiting nurse or other home services: No Alcohol intake: never Patient Tobacco Use Status: Current everyday Tobacco user Tobacco use type: Cigarette Cigarette Packs Per Day: 0.5 Cigarettes Per Day: 7 Years Smoked: 15 e-Cigarette/Vaping Use: Never Used Second Hand Smoke Exposure: Yes service: No Current occupational status: unemployed Current occupational exposures/hazards: No Sexual orientation: Straight/Heterosexual Gender identity: Female Cognitive needs: No Hearing needs: No Vision needs: Yes Female Reproductive History Menstrual Age of Menarche: 10 Questionnaire PHQ-9 Over the last 2 weeks, how often have you been bothered by any of the following problems? 1. Little interest or pleasure in doing things: not at all 2. Feeling down, depressed, or hopeless: not at all 3. Trouble falling or staying asleep, or sleeping too much: not at all 4. Feeling tired or having little energy: not at all 5. Poor appetite or overeating: not at all 6. Feeling bad about yourself - or that you are a failure or have let yourself o r your family down: not at all 7. Trouble concentrating on things, such as reading the newspaper or watching television: not at all 8. Moving or speaking so slowly that other people could have noticed. Or the opposite - being so fidgety or restless that you have been moving around a lot more than usual: not at all 9. Thoughts that you would be better off or of hurting yourself in some way: not at all Total score: 0 Depression Screening Interpretation: Negative Depression Screening Done: Yes 73893 - PHQ-9 Billing: Yes Source: Developed by Drs. Thomas Brady, Zeny Boyce, Ray rivas nd colleagues, with an educational yaya from [employer]. Thrive Questionnaire Date Thrive assessed: 10/19/24 I am a: Patient What is your living situation today?: I have a steady place to live Within the past 12 months, did the food you bought not last and you didn't have the money to get more?: Never true Within the past 12 months, did you worry whether your food would run out before you got money to buy more?: Never true Do you have trouble paying for medicines?: No Do you have trouble getting transportation to medical appointments?: No Do you have trouble paying your heating and electricity bill?: No Do you have trouble taking care of your child, family member or friend?: No Do you have trouble with day-to-day activities such as bathing, preparing meals, shopping, managing finances, etc.?: No Are you currently unemployed and looking for a job?: No Are you interested in more education?: No Currently or been in a relationship where the following occur: No concerns reported THRIVE Score: 0 AUDIT C Alcohol Use Questionnaire (AUDIT-C) 1. How often do you have a drink containing alcohol?: Monthly or less 2. How many drinks containing alcohol do you have on a typical day when you are drinking?: 1 or 2 3. How often do you have six or more drinks on one occasion?: Never Total Score: 1 Score Reviewed/Action Taken: Yes HUSSEIN-7 AMB Questionnaire HUSSEIN-7 Date HUSSEIN - 7 assessed: 10/19/24 Feeling nervous, anxious, or on edge: 0 = Not at all Not being able to stop or control worryin = Not at all Worrying too much about different things: 0 = Not at all Trouble relaxin = Not at all Being so restless that it is hard to sit still: 0 = Not at all Becoming easily annoyed or irritable: 0 = Not at all Feeling afraid as if something awful might happen: 0 = Not at all Total HUSSEIN-7 score (0-4 normal; 5-9 mild; 10-14 moderate; 15-21 severe): 0 Source: Developed by Drs. Thomas Brady, Zeny Boyce, Ray Mcgovern and colleagues, with an educational yaya from [employer]. Review of Systems Const Denies chills, Denies fatigue, Denies fever(s), Denies headache(s) and Reports weight loss (due to a stomach virus last month) ENT Denies dysphagia, Denies dizziness, Denies otalgia, Denies headache(s), Reports hearing loss (in the left ear ), Denies neck pain, Denies odynophagia and Denies sore throat Card Denies chest pain, Reports palpitations (occasionally, are mostly brief and associated with no symptoms) and Denies dyspnea Resp Denies chest congestion, Denies cough and Denies dyspnea GI Denies abdominal pain, Denies constipation, Denies dysphagia, Reports early satiety (thinks she is still recovering from her recent bout with a stomach virus), Denies heartburn, Denies diarrhea, Denies nausea, Denies odynophagia and Denies vomiting Denies difficulty voiding, Denies nocturia, Denies dysuria and Denies urinary urgency Musc Reports back pain (chronic, on and off) and Denies neck pain Skin/Breast Denies rash Neuro Denies dizziness and Denies headache(s) Psych Reports anxiety Endo Details: (+) hot flashes Denies fatigue and Reports palpitations (occasionally, are mostly brief and associated with no symptoms) Physical exam (Primary Care) Vital Signs: Oxygen Delivery Method Room Air 10/19/24 12:32 Tobacco/Smoking Status: Tobacco use Status Tobacco use date assessed 06/20/24 06/20/24 13:03 Patient Tobacco Use Status Current everyday Tobacco 06/20/24 13:03 Tobacco use type Cigarette 06/20/24 13:03 e-Cigarette/Vaping Use Never Used 06/20/24 13:03 Depression Screening Interpretation: Negative Thrive Assessment: Date of Thrive Assessment Date Thrive assessed 06/20/24 06/20/24 13:03 Currently or been in a relationship where the following occur: No concerns reported Const General: no acute distress and alert HENMT Ears: TM's normal bilaterally and EAC's normal Throat: Yes posterior oropharynx normal and Yes tonsils normal (no TP congestion noted) Neck Neck: Yes no lymphadenopathy and Yes supple Thyroid: Thyroid normal Resp Auscultation: clear to auscultation bilaterally, no rales and no wheezes Cardio Rate: regular rate Rhythm: regular rhythm Heart sounds: no murmurs GI Palpation (GI): Soft to palpation and nontender Auscultation: normal bowel sounds General: Yes no CVA tenderness Back/Spine/Pelvis Back: no CVA tenderness Thoracic/Lumbar Spine: lumbar spinal tenderness Skin Rashes: no rashes Extrem General: Yes no clubbing, cyanosis or edema Results Reviewed Results Reviewed: Laboratory Tests 06/17/24 10/14/24 09:20 08:55 WBC 10.4 Hgb 13.7 Hct 41.6 Plt Count 365 Sodium 143 Potassium 3.9 Creatinine 0.96 Estimated GFR > 60 Fasting Glucose 113 H Hemoglobin A1c % 5.8 Calcium 9.4 D AST 24 ALT 23 Triglycerides 94 Cholesterol 154 LDL Cholesterol, Calc 99 HDL Cholesterol 37 L 25-OH Vitamin D Total 26.8 L TSH 0.79 Urine pH 6.0 Ur Specific [place] 1.015 Urine Protein Negative Urine Glucose (UA) Negative Urine Blood Small (1+) H Urine Nitrite Negative Ur Leukocyte Esterase Moderate (2+) H Coding Level of Care Code Est Pt Level 4 (39507) Diagnoses Pure hypercholesterolemia E78.00 Palpitations R00.2 Migraine without status migrainosus, not intractable, unspecified migraine type G43.909 Migraine type: unspecified Status migrainosus presence: without status migrainosus Intractability: not intractable Impaired fasting glucose R73.01 Degeneration of intervertebral disc of lumbar region with discogenic back pain M51.360 Disc-related pain type: discogenic back pain only Vitamin D deficiency E55.9 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 Laterality: left GERD without esophagitis K21.9 Mild obstructive sleep apnea G47.33 Dysuria R30.0 Anxiety F41.9 Depression, unspecified depression type F32.9 Depression Type: unspecified Smoker F17.200 Additional Codes PHQ-9 - 19618 - PHQ-9 Billing: Yes ([id number]) Assessment & Plan Assessment & Plan (1) Pure hypercholesterolemia: Code(s): E78.00 - Pure hypercholesterolemia, unspecified Category: Medical Plan: Results of her labs done a few days ago reviewed and discussed with patient Reinforce low-cholesterol diet Continue Atorvastatin 10 mg QD Will recheck her labs and fasting lipids in 4 months for follow-up (2) Palpitations: Code(s): R00.2 - Palpitations Category: Medical Plan: Stable, with only occasional episodes that are mostly brief and asymptomatic She was on Propranolol in the past but she has not taken this in a while Echocardiogram done on 11/26/2019 came back normal Follow up with Cardiology as scheduled -? she recalls being advised that her palpitations were most likely triggered by her anxiety (3) Migraine: Code(s): G43.909 - Migraine, unspecified, not intractable, without status migrainosus Category: Medical Qualifiers: Migraine type: unspecified Status migrainosus presence: without status migrainosus Intractability: not intractable Qualified Code(s): G43.909 - Migraine, unspecified, not intractable, without status migrainosus Plan: Stable/controlled - she was on prophylactic Tx with Propranolol 10 mg BID in the past but has not been taking this in a while Follow-up with Neurology as scheduled (4) Impaired fasting glucose: Code(s): R73.01 - Impaired fasting glucose Category: Medical Plan: Her FBS was at 113 mg/dl and HgbA1c at 5.8% on her labs done a few days ago Reinforced low calorie/low carb diet; exercise as tolerated Will recheck her FBS and HgbA1c again in 4 months for follow up (5) Lumbar degenerative disc disease: Code(s): M51.36 - Other intervertebral disc degeneration, lumbar region Category: Medical Qualifiers: Disc-related pain type: discogenic back pain only Qualified Code(s): M51.360 - Other intervertebral disc degeneration, lumbar region with discogenic back pain only Plan: Reinforced activity and weight lifting restriction Continue Ibuprofen 800 mg TID PRN and Gabapentin 100 mg TID Follow-up with [facility] as scheduled (6) Vitamin D deficiency: Code(s): E55.9 - Vitamin D deficiency, unspecified Category: Medical Plan: Patient is advised that her Vitamin D level is low on her recent labs and that she should continue taking her Vitamin D3 2000 units daily States that she stopped taking her meds for a while when she was sick with a stomach virus last month but is now back on all of her medications (7) Increased pressure in the eye: Code(s): H40.059 - Ocular hypertension, unspecified eye Category: Medical Qualifiers: Laterality: left Qualified Code(s): 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 Winn for ophthalmology evaluation and management (8) GERD without esophagitis: Code(s): K21.9 - Gastro-esophageal reflux disease without esophagitis Category: Medical Plan: Dietary restrictions reinforced (9) Mild obstructive sleep apnea: Code(s): G47.33 - Obstructive sleep apnea (adult) (pediatric) Category: Medical Plan: (+) mild GUSTAVO based on her sleep study done previously Patient states that she will consider using CPAP device only if more convenient alternatives fail or her symptoms get worse (10) Dysuria: Code(s): R30.0 - Dysuria Category: Medical Plan: Her recent urinalysis came back with 2+ leucocytes but her urine C/S was negative Patient however is complaining of symptoms of dysuria and urgency so will go ahead and treat her empirically with Macrobid 100 mg BID x 7 days (11) Anxiety: Code(s): F41.9 - Anxiety disorder, unspecified Category: Medical Plan: Continue Lorazepam 0.5 mg 2 to 3 times a day as needed She was also taking Paroxetine 30 mg QD before but she self-discontinued this about a year ago (12) Depression: Code(s): F32.9 - Major depressive disorder, single episode, unspecified Category: Medical Qualifiers: Depression Type: unspecified Qualified Code(s): F32.9 - Major depressive disorder, single episode, unspecified Plan: Patient stopped taking her Paroxetine about a year ago - states that she does not feel any worse since and would like to stay off any further Rx at this time Follow-up with Psychiatry as scheduled (13) Smoker: Code(s): F17.200 - Nicotine dependence, unspecified, uncomplicated Category: Social Hx Plan: Patient is again counseled on complete smoking cessation Plan Follow up in 4 months Orders: Orders Complete Blood Count Auto Diff 4 Months D64.9 - Anemia, unspecified Comprehensive [place]. Panel Fast 4 Months E78.00 - Pure hypercholesterolemia, un specified Lipid Panel 4 Months E78.00 - Pure hypercholesterolemia, unspecified TSH reflex Free T4 4 Months E78.00 - Pure hypercholesterolemia, unspecified UA CC w/rflx Micro + Cult 4 Months R30.0 - Dysuria Vitamin D 25-OH Total 4 Months E55.9 - Vitamin D deficiency, unspecified Hemoglobin A1c 4 Months R73.01 - Impaired fasting glucose Referrals Ophthalmology Referral H40.059 - Ocular hypertension, unspecified eye Medications: New nitrofurantoin monohyd/m-cryst 100 mg (Macrobid) must administer with a meal/food 100 mg PO Q12H 7 days 14 caps 0RF Refilled albuterol sulfate 90 mcg/actuation (Ventolin HFA) 2 puffs inhalation Q6H 30 days PRN 8.5 grams 3RF shortness of breath or wheezing
--- OUTSIDE RECORDS SUMMARY | 2024-10-19 14:17 | XMS_ITS | Encounter Summary ---
Author Organization [facility] Address [address] [place] [address] Care Team Providers Care Qualified Craft Worker Electrician Name Role Phone Immanuel Lin MD Primary Care Provider Fidencio epperson Encounter Details Date Type Department Care Team Description 05/02/2016 Release of Information Medical Records [address] [place] [id number] Abstract, Provider Social History Tobacco Use Types Packs/Day Years Used Date Smoking Tobacco: Never Assessed Sex Assigned at Date Recorded Not on file documented as of this encounter Plan of Treatment Not on file documented as of this encounter Visit Diagnoses Not on filedocumented in this encounter Care Teams Qualified Craft Worker Electrician Relationship Specialty Start Date End Date Immanuel Lin MD PCP - General Internal Medicine 10/23/14 documented as of this encounter
--- OUTSIDE RECORDS SUMMARY | 2024-10-19 14:17 | XMS_ITS | Clinical Summary ---
Author Organization [facility] Address [address] [place] [address] Care Team Providers Care Medical Office Assistant Name Role Phone Immanuel Lin MD Primary Care Provider Unava ilable Active Problems Problem Noted Date Adjustment reaction with anxiety and dep ression 10/25/2014 Social History Tobacco Use Types Packs/Day Years Used Date Smoking Tobacco: Never Assessed Sex Assigned at Date Recorded Not on file Plan of Treatment Health Maintenance Due Date Last Done Comments Covid-19 Vaccine (#1) 05/13/1969 TOBACCO CHECK/ADVISE 1986 DTAP/TDAP/TD (1 - Tdap) 11/11/1987 CHOLESTEROL SCREENING 1988 CERVICAL CANCER SCREENING 1989 BASELINE HEALTH EXAM 40-64 2008 MAMMOGRAM 2008 COLON CANCER SCREENING 2018 SHINGLES VACCINE (1 of 2) 2018 BMI CHECK/ADVISE 07/13/2024 INFLUENZA (Season Ended) 2025 PNEUMOCOCCAL VACCINE FOR HIGH RISK PATIENTS (#1) 11/10 Care Teams Medical Office Assistant Relationship Specialty Start Date End Date Immanuel Lin MD PCP - General Internal Medicine 10/23/14
== END 2024-10-19 13:15 | disposition home or self-care (01) ==
LOC: HO.HMCH 12:19
PROVIDERS: PCP Internal Medicine; Visit Provider Internal Medicine
DX: E78.00 Pure hypercholesterolemia, unspecified (principal); R00.2 Palpitations; G43.909 Migraine, unspecified, not intractable, without status migrainosus; R73.01 Impaired fasting glucose; M51.360 Other intervertebral disc degeneration, lumbar region with discogenic back pain only; E55.9 Vitamin D deficiency, unspecified; H40.052 Ocular hypertension, left eye; K21.9 Gastro-esophageal reflux disease without esophagitis; G47.33 Obstructive sleep apnea (adult) (pediatric); R30.0 Dysuria; F41.9 Anxiety disorder, unspecified; F32.9 Major depressive disorder, single episode, unspecified; F17.200 Nicotine dependence, unspecified, uncomplicated

== ENCOUNTER → 2024-10-19 12:19 | Outpatient (BNVA) | payer BC, SELFPAY | PROVIDERS: PCP Internal Medicine; Visit Provider Internal Medicine | DX: E78.00 Pure hypercholesterolemia, unspecified (principal); R00.2 Palpitations; G43.909 Migraine, unspecified, not intractable, without status migrainosus; R73.01 Impaired fasting glucose; M51.360 Other intervertebral disc degeneration, lumbar region with discogenic back pain only; E55.9 Vitamin D deficiency, unspecified; H40.052 Ocular hypertension, left eye; K21.9 Gastro-esophageal reflux disease without esophagitis; G47.33 Obstructive sleep apnea (adult) (pediatric); R30.0 Dysuria; F41.9 Anxiety disorder, unspecified; F32.9 Major depressive disorder, single episode, unspecified; F17.200 Nicotine dependence, unspecified, uncomplicated; Z79.899 Other long term (current) drug therapy | CPT/HCPCS: 96127 ==

== ENCOUNTER 2025-06-02 08:41 | Outpatient (REF) | payer SELFPAY ==
[2025-06-02 10:02] LABS: MANUAL DIFF FLAG NO
[2025-06-02 10:14] LABS: Hematocrit 41.3 % (37.0-47.0); Hemoglobin 13.6 g/dl (12.0-16.0); Imm Gran Abs Auto 0.02 X10*3/uL (0.00-0.03); Imm Gran Pct Auto 0.2 % (0.0-0.4); Lymphocytes Absolute Auto 3.5 X10*3/uL (1.2-4.9); Mean Corpuscular HGB Conc 32.9 g/dl (31.0-35.0); Mean Corpuscular Hemoglobin 30.6 pg (27.0-33.0); Mean Corpuscular Volume 93.0 fL (80.0-98.0); NRBC Abs Auto 0.000 X10*3/uL (0.0-0.012); NRBC Pct Auto 0.0 /100WBC (0.0-0.2); Platelet Count 351 X10*3/uL (160-400); Red Blood Count 4.44 X10*6/uL (4.20-5.50); White Blood Count 9.6 X10*3/uL (4.8-10.8)
[2025-06-02 10:15] LABS: Appearance Urine Clear; Glucose Urine UA Negative (Negative); PH 5.5 (5.0-9.0); Specific Gravity - Urine 1.020 (1.005-1.025); UMIC TRIGGER UACC YES
[2025-06-02 10:28] LABS: UACC Culture Trigger YES
[2025-06-02 10:52] LABS: Alanine Aminotransferase 19 U/L (0-31); Albumin Level 4.9 g/dL (3.5-5.0); Alkaline Phosphatase 114 U/L (39-117); Anion Gap 9 (12-20); Aspartate Amino Transferase 20 U/L (5-31); Blood Urea Nitrogen 19 mg/dL (9-16); Calcium 9.6 mg/dL (8.4-10.2); Carbon Dioxide 27 mmol/L (22-29); Chloride 111 mmol/L (96-108); Cholesterol 155 mg/dL (<200); Estimated Glomerular Filt Rate 56; HDL Cholesterol 47 mg/dL (>40); Potassium 4.1 mmol/L (3.3-5.1); Sodium 143 mmol/L (135-145); Total Protein 7.4 g/dL (6.5-8.0); Triglycerides 95 mg/dL (<150)
== END 2025-06-02 08:42 | disposition home or self-care (01) ==
LOC: HO.10HDL 08:41
PROVIDERS: Visit Provider Internal Medicine
DX: R73.01 Impaired fasting glucose (principal); E55.9 Vitamin D deficiency, unspecified; R30.0 Dysuria; E78.00 Pure hypercholesterolemia, unspecified; D64.9 Anemia, unspecified
CPT/HCPCS: 36415; 80053; 80061; 81001; 82306; 83036; 84443; 85025; 87086

== ENCOUNTER 2025-06-16 12:33 | Outpatient (AMB) | payer SELFPAY ==
[2025-06-16 12:46] VITALS: BP 142/90; PULSE 91; O2SAT 98; BMI 25.3
--- NOTE | 2025-06-16 12:46 | MHC.PC.OV ---
Vital Signs 06/16/25 12:46 Height 5 ft 2 in Weight 138 lb 8 oz BMI 25.3 BP 142/90 H Blood Pressure Location Lt brachial Position Sitting Pulse 91 Pulse Source Pulse Oximeter Pulse Oximetry (%) 98 Oxygen Delivery Method Room Air Intake Visit Reasons: follow up Medical Staff Coordinator Required: No Accompanied by: Self / Same As Patient Allergies No Known Allergies (No Known Allergies*) Allergy (Verified 06/16/25 13:01) Medication List - Last Reconciled 06/16/25 by Immanuel Lin MD albuterol sulfate 90 mcg/actuation (Ventolin HFA) 2 puffs inhalation Q6H PRN 30 days atorvastatin 10 mg PO DAILY 90 days cholecalciferol (vitamin D3) 50 mcg PO DAILY fluticasone propionate 50 mcg/actuation 2 sprays intranasal DAILY gabapentin 100 mg PO TID ibuprofen 800 mg PO TID PRN 30 days Lactobacillus acidophilus (Probiotic Acidophilus) 100 mmu cells PO DAILY lorazepam 0.5 mg PO TID PRN 30 days Tobacco use date assessed: 06/16/25 Dental Screening Dental Screen Date: 06/16/25 Did you have a dental visit in the last 12 months?: No Did you have a dental problem in the last 6 months where you did not have access to dental care?: No Was dental information given to patient?: No HPI follow up HPI Details Patient comes in today for her follow up visit for her hyperlipidemia, migraine, GERD and anxiety States that she feels okay She denies any headaches or dizziness Denies any chest pains, no increased shortness of breath No nausea/vomiting, no abdominal pain No change in bowel habits noted Needs her Lorazepam and Ibuprofen Rx refilled She had her follow up labs done a couple of weeks ago - to discuss her results She would also like to get her flu shot today [facility] Medical History Depression Anxiety Periodic limb movement disorder Mild obstructive sleep apnea GERD without esophagitis Vitamin D deficiency Palpitations Impaired fasting glucose Migraine Lumbar degenerative disc disease Pure hypercholesterolemia Surgical History Hx laparoscopic cholecystectomy (10/22/20) Family History Father Cancer Mother CVD (cardiovascular disease) Social History Household Members: Family Housing: House Do you presently have visiting nurse or other home services: No Alcohol intake: never Patient Tobacco Use Status: Current everyday Tobacco user Tobacco use type: Cigarette Cigarette Packs Per Day: 0.5 Cigarettes Per Day: 7 Years Smoked: 15 e-Cigarette/Vaping Use: Never Used Second Hand Smoke Exposure: Yes service: No Current occupational status: unemployed Current occupational exposures/hazards: No Sexual orientation: Straight/Heterosexual Gender identity: Female Cognitive needs: No Hearing needs: No Vision needs: Yes Female Reproductive History Menstrual Age of Menarche: 10 Questionnaire PHQ-9 Over the last 2 weeks, how often have you been bothered by any of the following problems? 1. Little interest or pleasure in doing things: not at all 2. Feeling down, depressed, or hopeless: not at all 3. Trouble falling or staying asleep, or sleeping too much: more than half the days 4. Feeling tired or having little energy: more than half the days 5. Poor appetite or overeating: not at all 6. Feeling bad about yourself - or that you are a failure or have let yourself or your family down: not at all 7. Trouble concentrating on things, such as reading the newspaper or watching television: not at all 8. Moving or speaking so slowly that other people could have noticed. Or the opposite - being so fidgety or restless that you have been moving around a lot more than usual: not at all 9. Thoughts that you would be better off or of hurting yourself in some way: not at all Total score: 4 Depression Screening Interpretation: Positive Depression Screening Follow-up: Existing condition and In treatment Depression Screening Done: Yes 18342 - PHQ-9 Billing: Yes Source: Developed by Drs. Thomas Brady, Zeny Boyce, Ray Mcgovern and colleagues, with an educational yaya from [employer]. Thrive Questionnaire Date Thrive assessed: 06/16/25 I am a: Patient What is your living situation today?: I have a steady place to live Within the past 12 months, did the food you bought not last and you didn't have the money to get more?: Sometimes True Within the past 12 months, did you worry whether your food would run out before you got money to buy more?: Never true Do you have trouble paying for medicines?: No Do you have trouble getting transportation to medical appointments?: No Do you have trouble paying your heating and electricity bill?: No Do you have trouble taking care of your child, family member or friend?: No Do you have trouble with day-to-day activities such as bathing, preparing meals, shopping, managing finances, etc.?: No Are you currently unemployed and looking for a job?: No Are you interested in more education?: No Please select the resources that you would like help with: None Currently or been in a relationship where the following occur: No concerns reported THRIVE Score: 1 AUDIT C Alcohol Use Questionnaire (AUDIT-C) 1. How often do you have a drink containing alcohol?: Never 3. How often do you have six or more drinks on one occasion?: Never Total Score: 0 Score Reviewed/Action Taken: Yes HUSSEIN-7 AMB Questionnaire HUSSEIN-7 Date HUSSEIN - 7 assessed: 06/16/25 Feeling nervous, anxious, or on edge: 1 = Several days Not being able to stop or control worryin = Several days Worrying too much about different things: 2 = More than half the days Trouble relaxin = Several days Being so restless that it is hard to sit still: 0 = Not at all Becoming easily annoyed or irritable: 0 = Not at all Feeling afraid as if something awful might happen: 0 = Not at all Total HUSSEIN-7 score (0-4 normal; 5-9 mild; 10-14 moderate; 15-21 severe): 5 Source: Developed by Drs. Thomas Brady, Zeny Boyce, Ray Mcgovern and colleagues, with an educational yaya from [employer]. Review of Systems Const Denies chills, Denies fatigue, Denies fever(s) and Denies headache(s) ENT Denies dysphagia, Denies dizziness, Denies otalgia, Denies headache(s), Reports hearing loss (in the left ear ), Denies neck pain, Denies odynophagia and Denies sore throat Card Denies chest pain, Reports palpitations (occasionally, are mostly brief and associated with no symptoms) and Denies dyspnea Resp Denies chest congestion, Denies cough and Denies dyspnea GI Denies abdominal pain, Denies constipation, Denies dysphagia, Denies heartburn, Denies diarrhea, Denies nausea, Denies odynophagia and Denies vomiting Denies difficulty voiding, Denies nocturia, Denies dysuria and Denies urinary urgency Musc Reports back pain (chronic, on and off) and Denies neck pain Skin/Breast Denies rash Neuro Denies dizziness and Denies headache(s) Psych Reports anxiety Endo Details: (+) hot flashes Denies fatigue and Reports palpitations (occasionally, are mostly brief and associated with no symptoms) Physical exam (Primary Care) Vital Signs: Last Vital Signs Pulse 91 06/16/25 12:46 BP 142/90 H 06/16/25 12:46 Pulse Ox 98 06/16/25 12:46 Oxygen Delivery Method Room Air 06/16/25 12:46 BMI result Body Mass Index 25.3 Tobacco/Smoking Status: Tobacco use Status Tobacco use date assessed 06/16/25 06/16/25 12:50 Patient Tobacco Use Status Current everyday Tobacco 06/16/25 12:50 Tobacco use type Cigarette 06/16/25 12:50 e-Cigarette/Vaping Use Never Used 06/16/25 12:50 PHQ-9: PHQ-9 Score PHQ-9: Total score 4 06/16/25 13:03 Depression Screening Interpretation: Positive Depression Screening Follow-up: Existing condition and In treatment Thrive Assessment: Date of Thrive Assessment Date Thrive assessed 06/16/25 06/16/25 12:50 Currently or been in a relationship where the following occur: No concerns reported Const General: no acute distress and alert HENMT Ears: TM's normal bilaterally and EAC's normal Throat: Yes posterior oropharynx normal and Yes tonsils normal (no TP congestion noted) Neck Neck: Yes no lymphadenopathy and Yes supple Thyroid: Thyroid normal Resp Auscultation: clear to auscultation bilaterally, no rales and no wheezes Cardio Rate: regular rate Rhythm: regular rhythm Heart sounds: no murmurs GI Palpation (GI): Soft to palpation and nontender Auscultation: normal bowel sounds General: Yes no CVA tenderness Back/Spine/Pelvis Back: no CVA tenderness Thoracic/Lumbar Spine: lumbar spinal tenderness Skin Rashes: no rashes Extrem General: Yes no clubbing, cyanosis or edema Office Procedures Flu Questionnaire Does the patient have a severe egg allergy?: No Does the patient have severe life threatening allergies?: No Does the patient have a fever or illness today?: No Has the patient ever had Guillain-[place] Syndrome?: No Has the patient ever had any past reaction to a flu shot?: No Immunizations Fluarix [id number] (PF) 45 mcg (15 mcg x 3)/0.5 mL IM syringe Performing Provider: Immanuel Lin MD Performing [facility] [place] [facility] Administered by: RON Trejo on 06/16/25 13:12 Dose Route Admin Location Dispensed Lot Number Expiration Date [facility] Newswriter 0.5 mL IM Left Deltoid 0.5 mL [id number] 01/09/26 [id number] [email or web address] VIS Given Date VIS Provided VIS Publication Date 06/16/25 Single Vaccine 24 Eligibility Eligibility Date Funding Source Not [facility] Eligible 06/16/25 Private Results Reviewed Results Reviewed: Laboratory Tests 06/02/25 08:45 WBC 9.6 Hgb 13.6 Hct 41.3 Plt Count 351 Sodium 143 Potassium 4.1 Creatinine 1.02 Estimated GFR 56 Fasting Glucose 122 H Hemoglobin A1c % 5.9 Calcium 9.6 AST 20 ALT 19 Triglycerides 95 Cholesterol 155 LDL Cholesterol, Calc 89 HDL Cholesterol 47 25-OH Vitamin D Total 27.6 L TSH 1.14 Ur Specific [place] 1.020 Urine Protein Negative Urine Glucose (UA) Negative Urine Blood Small (1+) H Urine Nitrite Negative Ur Leukocyte Esterase Small (1+) H Coding Level of Care Code Est Pt Level 4 (23950) Diagnoses Pure hypercholesterolemia E78.00 Palpitations R00.2 Migraine without status migrainosus, not intractable, unspecified migraine type G43.909 Intractability: not intractable Migraine type: unspecified Status migrainosus presence: without status migrainosus Impaired fasting glucose R73.01 Degeneration of intervertebral disc of lumbar region with discogenic back pain M51.360 Disc-related pain type: discogenic back pain only Vitamin D deficiency E55.9 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 Laterality: left GERD without esophagitis K21.9 Mild obstructive sleep apnea G47.33 Anxiety F41.9 Depression, unspecified depression type F32.9 Depression Type: unspecified Smoker F17.200 Additional Codes PHQ-9 - 92446 - PHQ-9 Billing: Yes ([id number]) Assessment & Plan Assessment & Plan (1) Pure hypercholesterolemia: Code(s): E78.00 - Pure hypercholesterolemia, unspecified Category: Medical Plan: Results of her labs done a couple of weeks ago reviewed and discussed with patient Reinforce low-cholesterol diet Continue Atorvastatin 10 mg QD Will recheck her labs and fasting lipids in 4 months for follow-up (2) Palpitations: Code(s): R00.2 - Palpitations Category: Medical Plan: Stable, with only occasional episodes that are mostly brief and asymptomatic She was on Propranolol in the past but she has not taken this in a while Echocardiogram done on 11/26/2019 came back normal Follow up with Cardiology as scheduled -? she recalls being advised that her palpitations were most likely triggered by her anxiety (3) Migraine: Code(s): G43.909 - Migraine, unspecified, not intractable, without status migrainosus Category: Medical Qualifiers: Intractability: not intractable Migraine type: unspecified Status migrainosus presence: without status migrainosus Qualified Code(s): G43.909 - Migraine, unspecified, not intractable, without status migrainosus Plan: Stable/controlled - she was on prophylactic Tx with Propranolol 10 mg BID in the past but has not been taking this in a while Follow-up with Neurology as scheduled (4) Impaired fasting glucose: Code(s): R73.01 - Impaired fasting glucose Category: Medical Plan: Her FBS was at 113 mg/dl and HgbA1c at 5.8% on her labs done a few days ago Reinforced low calorie/low carb diet; exercise as tolerated Will recheck her FBS and HgbA1c again in 4 months for follow up (5) Lumbar degenerative disc disease: Code(s): M51.36 - Other intervertebral disc degeneration, lumbar region Category: Medical Qualifiers: Disc-related pain type: discogenic back pain only Qualified Code(s): M51.360 - Other intervertebral disc degeneration, lumbar region with discogenic back pain only Plan: Reinforced activity and weight lifting restriction Continue Ibuprofen 800 mg TID PRN and Gabapentin 100 mg TID Follow-up with [facility] as scheduled (6) Vitamin D deficiency: Code(s): E55.9 - Vitamin D deficiency, unspecified Category: Medical Plan: Continue Vitamin D3 2000 units QD States that she stopped taking her meds for a while when she was sick with a stomach virus last month but is now back on all of her medications (7) Increased pressure in the eye: Code(s): H40.059 - Ocular hypertension, unspecified eye Category: Medical Qualifiers: Laterality: left Qualified Code(s): 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 Winn for ophthalmology evaluation and management - states that she had to cancel her original appointment as she lost her insurance coverage and is currently waiting on her appeal and once she has insurance coverage again, she will reschedule her appt MORALES (8) GERD without esophagitis: Code(s): K21.9 - Gastro-esophageal reflux disease without esophagitis Category: Medical Plan: Dietary restrictions reinforced (9) Mild obstructive sleep apnea: Code(s): G47.33 - Obstructive sleep apnea (adult) (pediatric) Category: Medical Plan: (+) mild GUSTAVO based on her sleep study done previously Patient states that she will consider using CPAP device only if more convenient alternatives fail or her symptoms get worse (10) Anxiety: Code(s): F41.9 - Anxiety disorder, unspecified Category: Medical Plan: Continue Lorazepam 0.5 mg 2 to 3 times a day as needed She was also taking Paroxetine 30 mg QD before but she self-discontinued this about a year ago (11) Depression: Code(s): F32.9 - Major depressive disorder, single episode, unspecified Category: Medical Qualifiers: Depression Type: unspecified Qualified Code(s): F32.9 - Major depressive disorder, single episode, unspecified Plan: Patient stopped taking her Paroxetine about a year ago - states that she does not feel any worse since and would like to stay off any further Rx at this time Follow-up with Psychiatry as scheduled (12) Smoker: Code(s): F17.200 - Nicotine dependence, unspecified, uncomplicated Category: Social Hx Plan: Patient is again counseled on complete smoking cessation Plan Follow up in 4 months Orders: Orders Influenza [id number] Immunization Today Z23 - Encounter for immunization Complete Blood Count Auto Diff 4 Months D64.9 - Anemia, unspecified Comprehensive [place]. Panel Fast 4 Months E78.00 - Pure hypercholesterolemia, unspecified Lipid Panel 4 Months E78.00 - Pure hypercholesterolemia, unspecified Hemoglobin A1c 4 Months E11.9 - Type 2 diabetes mellitus without complications UA CC w/rflx Micro + Cult 4 Months R30.0 - Dysuria Vitamin D 25-OH Total 4 Months E55.9 - Vitamin D deficiency, unspecified Medications: Refilled ibuprofen 800 mg PO TID PRN 90 tabs 3RF fever or pain 30 days lorazepam 0.5 mg PO TID PRN 90 tabs 0RF anxiety 30 days
== END 2025-06-16 13:19 | disposition home or self-care (01) ==
LOC: HO.HMCH 12:34
PROVIDERS: PCP Internal Medicine; Visit Provider Internal Medicine
DX: E78.00 Pure hypercholesterolemia, unspecified (principal); R00.2 Palpitations; G43.909 Migraine, unspecified, not intractable, without status migrainosus; R73.01 Impaired fasting glucose; M51.360 Other intervertebral disc degeneration, lumbar region with discogenic back pain only; E55.9 Vitamin D deficiency, unspecified; H40.052 Ocular hypertension, left eye; K21.9 Gastro-esophageal reflux disease without esophagitis; G47.33 Obstructive sleep apnea (adult) (pediatric); F41.9 Anxiety disorder, unspecified; F32.9 Major depressive disorder, single episode, unspecified; F17.200 Nicotine dependence, unspecified, uncomplicated; Z23 Encounter for immunization

== ENCOUNTER → 2025-06-16 12:33 | Outpatient (BNVA) | payer SELFPAY | PROVIDERS: PCP Internal Medicine; Visit Provider Internal Medicine | DX: Z23 Encounter for immunization (principal); E78.00 Pure hypercholesterolemia, unspecified; R00.2 Palpitations; G43.909 Migraine, unspecified, not intractable, without status migrainosus; R73.01 Impaired fasting glucose; M51.360 Other intervertebral disc degeneration, lumbar region with discogenic back pain only; E55.9 Vitamin D deficiency, unspecified; H40.052 Ocular hypertension, left eye; K21.9 Gastro-esophageal reflux disease without esophagitis; G47.33 Obstructive sleep apnea (adult) (pediatric); F41.9 Anxiety disorder, unspecified; F32.9 Major depressive disorder, single episode, unspecified; F17.210 Nicotine dependence, cigarettes, uncomplicated | CPT/HCPCS: 90471; 90656; 96127; 99212 ==